=== PATIENT | male | born 1950 | race African-American/Black ===

== ENCOUNTER 2016-05-09 17:28 | Emergency (ER) | payer MEDICARE, OTHER ==
[~2016-05-09] VITALS: Ht 177.8 cm; Wt 72.6 kg
[~2016-05-09 17:28] MED LIST: ASPIR 8181 MG ORAL; ATORVASTATIN CA40 MG ORAL; BACTRIM-DS1 EA ORAL; CARAFATE1 G1 ORAL; CARVEDILOL3.125 MG ORAL; ENTRESTO 24 MG1 EACH PO; FUROSEMIDE40 MG ORAL; PANTOPRAZOLE SO40 MG ORAL; PROSCAR5 MG ORAL; SPIRONOLACTONE1 EACH ORAL; TAMSULOSIN HCL0.4 MG ORAL; TRAMADOL HCL50 MG ORAL; TYLENOL EXTRA500 MG ORAL
[2016-05-09 17:38] VITALS: BP 140/67
[2016-05-09 18:21] LABS: APPEARANCE,URINE TURBID; KETONES,URINE NEGATIVE (NEGATIVE); LEUKOCYTE ESTERASE ,URINE 1+ (NEGATIVE); NITRITE,URINE NEGATIVE (NEGATIVE); PH,URINE 7 (4.5-8.0); PROTEIN,URINE 4+ (NEGATIVE); UROBILINOGEN,URINE NORMAL MG/DL (0.0-1.0)
[2016-05-09 18:24] LABS: RBC,URINE TNTC /HPF (0 - 0)
[2016-05-09 18:53] LABS: BASOPHILS % (AUTO) 1.5 % (0.0-2.0); EOSINOPHILS % (AUTO) 4.3 % (0.0-3.0); LYMPHOCYTES % (AUTO) 26.1 % (20.0-45.0); MEAN CORPUSCULAR HEMOGLOBIN 27.9 PG (27.0-31.0); MEAN CORPUSCULAR HGB CONC 30.8 G/DL (32.0-36.0); MEAN CORPUSCULAR VOLUME 91 FL (80-99); MEAN PLATELET VOLUME 9.1 FL (6.5-10.1); MONOCYTES % (AUTO) 12.2 % (1.0-10.0); NEUTROPHILS % (AUTO) 55.9 % (45.0-75.0); PLATELET COUNT 157 K/UL (150-450); RED CELL DISTRIBUTION WIDTH 14.6 % (11.6-14.8); WHITE BLOOD COUNT 5.6 K/UL (4.8-10.8)
[2016-05-09 18:58] LABS: PROTHROMBIN TIME 10.5 SEC (9.30-11.50)
[2016-05-09 19:05] LABS: ALANINE AMINOTRANSFERASE 11 U/L (3-41); ALBUMIN/GLOBULIN RATIO 0.9 (1.0-2.7); ANION GAP 14 (5-15); ASPARTATE AMINO TRANSFERASE 16 U/L (5-40); CALCIUM 8.8 mg/dL (8.6-10.2); CARBON DIOXIDE 27 mEQ/L (20-30); CHLORIDE 100 mEQ/L (98-107); CREATININE 1.3 mg/dL (0.7-1.2); GLOMERULAR FILTRATION RATE > 60 mL/min (>60); HEMOLYSIS 6; POTASSIUM 4.1 mEQ/L (3.4-4.9); SODIUM 141 mEQ/L (135-145); TOTAL PROTEIN 7.3 g/dL (6.6-8.7)
--- NOTE | 2016-05-09 19:39 | Emergency Room Report ---
History of Present Illness General Chief Complaint: Male Urogenital Problems Source: Patient (Rodrigo Ramirez) Present Illness HPI Patient is a 65-year-old male who presented after having increased hematuria. Patient had the recent prostate surgery at [facility] done by Dr. Sousa. Patient was noted to have a prior hematuria which resolved after a partial TURP and cystoscopy. The patient indwelling Jordan catheter which had subsequently been removed. The patient was noted to have increased hematuria. Patient had received transfusion prior to this episode. The patient had been able to void on his own. (Rodrigo Ramirez) Allergies: Coded Allergies: No Known Allergies (Unverified , 04/03/16) Patient History Past Medical History: see triage record Reviewed Nursing Documentation: PMH: Agreed, PSxH: Agreed (Rodrigo Ramirez) Nursing Documentation-PMH Hx Cardiac Problems: Yes - HF, pacemaker, anemia Hx Hypertension: Yes - hypercholesterolemia Hx Cancer: No Hx Neurological Problems: No (Rodrigo Ramirez) Review of Systems All Other Systems: negative except mentioned in HPI (Rodrigo Ramirez) Physical Exam Vital Signs Date Time Temp Pulse Resp B/P Pulse Ox O2 Delivery O2 Flow Rate FiO2 05/09/16 17:29 98.1 67 14 165/72 100 Room Air Sp02 EP Interpretation: reviewed, normal General Appearance: normal inspection, well appearing, no apparent distress, alert, GCS 15 Head: atraumatic ENT: normal ENT inspection, hearing grossly normal, normal voice Neck: normal inspection, full range of motion, supple, no bony tend Respiratory: normal inspection, lungs clear, normal breath sounds, no respiratory distress, no retraction, no wheezing Cardiovascular #1: regular rate, rhythm, no edema Gastrointestinal: normal inspection, normal bowel sounds, non tender, soft, no guarding, no hernia Genitourinary: no CVA tenderness Musculoskeletal: normal inspection, back normal, normal range of motion Neurologic: normal inspection, alert, oriented x3, responsive, 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 Differential diagnosis included was not limited to bladder tumor, cystitis, postsurgical hemorrhage, among others.Because of complexity of patient's case laboratory testing and imaging studies were ordered. I laboratory study showed evidence of anemia the patient normal coagulation studies. Urinalysis showed evidence of gross hematuria without infection. The patient was discussed with Dr. Knox from urology who recommended patient followup with Dr. Sousa on Wednesday. Labs Test 05/09/16 17:45 05/09/16 18:38 Urine Color Red Urine Appearance Turbid Urine pH 7 (4.5-8.0) Urine Specific [place] 1.010 (1.005-1.035) Urine Protein 4+ (NEGATIVE) Urine Glucose (UA) Negative (NEGATIVE) Urine Ketones Negative (NEGATIVE) Urine Occult Blood 5+ (NEGATIVE) Urine Nitrite Negative (NEGATIVE) Urine Bilirubin Negative (NEGATIVE) Urine Urobilinogen Normal MG/DL (0.0-1.0) Urine Leukocyte Esterase 1+ (NEGATIVE) Urine RBC Tntc /HPF (0 - 0) Urine WBC 5-10 /HPF (0 - 0) Urine Squamous Epithelial Cells None /LPF (NONE/OCC) Urine Bacteria None /HPF (NONE) White Blood Count 5.6 K/UL (4.8-10.8) Red Blood Count 3.90 M/UL (4.70-6.10) Hemoglobin 10.9 G/DL (14.2-18.0) Hematocrit 35.4 % (42.0-52.0) Mean Corpuscular Volume 91 FL (80-99) Mean Corpuscular Hemoglobin 27.9 PG (27.0-31.0) Mean Corpuscular Hemoglobin Concent 30.8 G/DL (32.0-36.0) Red Cell Distribution Width 14.6 % (11.6-14.8) Platelet Count 157 K/UL (150-450) Mean Platelet Volume 9.1 FL (6.5-10.1) Neutrophils (%) (Auto) 55.9 % (45.0-75.0) Lymphocytes (%) (Auto) 26.1 % (20.0-45.0) Monocytes (%) (Auto) 12.2 % (1.0-10.0) Eosinophils (%) (Auto) 4.3 % (0.0-3.0) Basophils (%) (Auto) 1.5 % (0.0-2.0) Prothrombin Time 10.5 SEC (9.30-11.50) Prothromb Time International Ratio 1.0 (0.9-1.1) Activated Partial Thromboplast Time 33 SEC (23-33) Sodium Level 141 mEQ/L (135-145) Potassium Level 4.1 mEQ/L (3.4-4.9) Chloride Level 100 mEQ/L (98-107) Carbon Dioxide Level 27 mEQ/L (20-30) Anion Gap 14 (5-15) Blood Urea Nitrogen 16 mg/dL (7-23) Creatinine 1.3 mg/dL (0.7-1.2) Estimat Glomerular Filtration Rate > 60 mL/min (>60) Glucose Level 87 mg/dL (74-106) Calcium Level 8.8 mg/dL (8.6-10.2) Total Bilirubin 0.3 mg/dL (0.0-1.2) Aspartate Amino Transf (AST/SGOT) 16 U/L (5-40) Alanine Aminotransferase (ALT/SGPT) 11 U/L (3-41) Alkaline Phosphatase 84 U/L (40-129) Total Protein 7.3 g/dL (6.6-8.7) Albumin 3.5 g/dL (3.5-5.2) Globulin 3.8 g/dL Albumin/Globulin Ratio 0.9 (1.0-2.7) (Rodrigo Ramirez) ER Course Hospital Course 65-year-old male presents to ED with hematuria. Status post TURP Clinical course Patient initially seen and evaluated by Dr. Ramirez; please see his note for full history and physical Labs - no leukocytosis, blood/hematocrit stable, electrolytes okay, UA grossly positive US shows hemorrhage/clot in the bladder. Because of the hematuria. Patient drinking fluids and given IV fluids with hematuria improving. Patient shows no signs of obstruction. Repeat hemoglobin/hematocrit stable I discussed case with urology. They agreed that patient can be safely discharged to home at this time and that the hematuria is normal given the findings. No reason for admission. Patient agrees to plan. I feel this is a highly complex case requiring extensive working including EKG/ Rhythm strip, Xray/CT/US, Blood/urine lab work, repeat exams while in ED, and administration of strong opiates/narcotics for pain control, admission to hospital or close patient follow up. Diagnosis - gross hematuria, BPH, s/p TURP Stable and discharged to SNF. Followup with urology. Return to ED if symptoms recur or worsen Labs Test 05/09/16 17:45 05/09/16 18:38 05/09/16 21:24 Urine Color Red Urine Appearance Turbid Urine pH 7 (4.5-8.0) Urine Specific [place] 1.010 (1.005-1.035) Urine Protein 4+ (NEGATIVE) Urine Glucose (UA) Negative (NEGATIVE) Urine Ketones Negative (NEGATIVE) Urine Occult Blood 5+ (NEGATIVE) Urine Nitrite Negative (NEGATIVE) Urine Bilirubin Negative (NEGATIVE) Urine Urobilinogen Normal MG/DL (0.0-1.0) Urine Leukocyte Esterase 1+ (NEGATIVE) Urine RBC Tntc /HPF (0 - 0) Urine WBC 5-10 /HPF (0 - 0) Urine Squamous Epithelial Cells None /LPF (NONE/OCC) Urine Bacteria None /HPF (NONE) White Blood Count 5.6 K/UL (4.8-10.8) 5.4 K/UL (4.8-10.8) Red Blood Count 3.90 M/UL (4.70-6.10) 3.76 M/UL (4.70-6.10) Hemoglobin 10.9 G/DL (14.2-18.0) 10.4 G/DL (14.2-18.0) Hematocrit 35.4 % (42.0-52.0) 34.1 % (42.0-52.0) Mean Corpuscular Volume 91 FL (80-99) 91 FL (80-99) Mean Corpuscular Hemoglobin 27.9 PG (27.0-31.0) 27.5 PG (27.0-31.0) Mean Corpuscular Hemoglobin Concent 30.8 G/DL (32.0-36.0) 30.3 G/DL (32.0-36.0) Red Cell Distribution Width 14.6 % (11.6-14.8) 15.2 % (11.6-14.8) Platelet Count 157 K/UL (150-450) 150 K/UL (150-450) Mean Platelet Volume 9.1 FL (6.5-10.1) 8.3 FL (6.5-10.1) Neutrophils (%) (Auto) 55.9 % (45.0-75.0) 51.7 % (45.0-75.0) Lymphocytes (%) (Auto) 26.1 % (20.0-45.0) 32.6 % (20.0-45.0) Monocytes (%) (Auto) 12.2 % (1.0-10.0) 10.7 % (1.0-10.0) Eosinophils (%) (Auto) 4.3 % (0.0-3.0) 4.3 % (0.0-3.0) Basophils (%) (Auto) 1.5 % (0.0-2.0) 0.7 % (0.0-2.0) Prothrombin Time 10.5 SEC (9.30-11.50) Prothromb Time International Ratio 1.0 (0.9-1.1) Activated Partial Thromboplast Time 33 SEC (23-33) Sodium Level 141 mEQ/L (135-145) Potassium Level 4.1 mEQ/L (3.4-4.9) Chloride Level 100 mEQ/L (98-107) Carbon Dioxide Level 27 mEQ/L (20-30) Anion Gap 14 (5-15) Blood Urea Nitrogen 16 mg/dL (7-23) Creatinine 1.3 mg/dL (0.7-1.2) Estimat Glomerular Filtration Rate > 60 mL/min (>60) Glucose Level 87 mg/dL (74-106) Calcium Level 8.8 mg/dL (8.6-10.2) Total Bilirubin 0.3 mg/dL (0.0-1.2) Aspartate Amino Transf (AST/SGOT) 16 U/L (5-40) Alanine Aminotransferase (ALT/SGPT) 11 U/L (3-41) Alkaline Phosphatase 84 U/L (40-129) Total Protein 7.3 g/dL (6.6-8.7) Albumin 3.5 g/dL (3.5-5.2) Globulin 3.8 g/dL Albumin/Globulin Ratio 0.9 (1.0-2.7) (PATRICIA SEGURA M.D.) EKG Diagnostic Results Rate: other - paced rhythm, 67 Rhythm: other ST Segments: no acute changes ASA given to the pt in ED: No (Rodrigo Ramirez) Rhythm Strip Diag. Results Rhythm: no PVC's, no ectopy (Rodrigo Raimrez) CT/MRI/US Diagnostic Results CT/MRI/US Diagnostic Results : Imaging Test Ordered: renal US Impression Enlarged heterogeneous prostate reported recent TURP. Complex probable hemorrhagic/clot in the bladder (PATRICIA SEGURA M.D.) Last Vital Signs Date Time Temp Pulse Resp B/P Pulse Ox O2 Delivery O2 Flow Rate FiO2 05/09/16 17:38 98.1 69 14 140/67 100 Room Air Status: unchanged (Rodrigo Ramirez) Status: improved (PATRICIA SEGURA M.D.) Disposition: ER SNF Condition: Stable Rodrigo Ramirez May 09, 2016 19:39 PATRICIA SEGURA M.D. May 10, 2016 00:58
[2016-05-09 20:20] VITALS: BP 162/68
[2016-05-09 21:53] LABS: BASOPHILS % (AUTO) 0.7 % (0.0-2.0); EOSINOPHILS % (AUTO) 4.3 % (0.0-3.0); LYMPHOCYTES % (AUTO) 32.6 % (20.0-45.0); MEAN CORPUSCULAR HEMOGLOBIN 27.5 PG (27.0-31.0); MEAN CORPUSCULAR HGB CONC 30.3 G/DL (32.0-36.0); MEAN CORPUSCULAR VOLUME 91 FL (80-99); MEAN PLATELET VOLUME 8.3 FL (6.5-10.1); MONOCYTES % (AUTO) 10.7 % (1.0-10.0); NEUTROPHILS % (AUTO) 51.7 % (45.0-75.0); PLATELET COUNT 150 K/UL (150-450); RED BLOOD COUNT 3.76 M/UL (4.70-6.10); RED CELL DISTRIBUTION WIDTH 15.2 % (11.6-14.8); WHITE BLOOD COUNT 5.4 K/UL (4.8-10.8)
[2016-05-09] MEDS ORDERED: Morphine Sulfate 4mg/ml Inj IVP ONE (22:30)
[2016-05-09 23:10] VITALS: BP 166/62
[2016-05-10 00:33] VITALS: BP 140/60
[2016-05-10 00:35] VITALS: BP 140/60
--- NOTE | 2016-05-10 11:00 | Diagnostic Imaging Report ---
Indication:Hematuria Technique: Grayscale and duplex Doppler imaging of the kidneys performed. Comparison: None Findings: Large echogenic focus noted at the base of the bladder probably hematoma. Patient is had a recent transurethral resection of the prostate gland. It is difficult to distinguish between residual prostate gland and postsurgical edema/hematoma. The bladder is somewhat distended. Some echogenic debris noted within the bladder lumen consistent with blood. Multiple bilateral renal cysts are present of varying size measuring up to about 5-6 CM. No hydronephrosis definitely appreciated. The kidneys measure about 11 cm bilaterally Impression: Evidence of a large hematoma at the base of the urinary bladder in the setting of previous TURP. No hydronephrosis Multiple bilateral renal cysts
[2016-05-11] MEDS ORDERED: COREG3.125 MG ORAL (08:14)
[2016-05-11] MEDS ORDERED: OMEPRAZOLE40 M1 ORAL (08:14)
[2016-05-11] MEDS ORDERED: CEPACOL SORE T1 EAC5 MM (08:14)
[2016-05-11] MEDS ORDERED: ALDACTONE25 MG ORAL (08:14)
[2016-05-11] MEDS ORDERED: FERROUS SULFAT325 M2 ORAL (08:14)
--- NOTE | 2016-05-12 18:01 | Cardiology Report ---
APPROVED REPORT EKG Measurement Heart [id number] SD [id number] [id number] av sequential pacing
== END 2016-05-10 00:35 ==
LOC: EDBD 17:28 → EMR 19:42
DX: N40.0 Benign prostatic hyperplasia without lower urinary tract symptoms (principal); R31.9 Hematuria, unspecified; I10 Essential (primary) hypertension; E78.00 Pure hypercholesterolemia, unspecified; Z95.0 Presence of cardiac pacemaker; I50.9 Heart failure, unspecified
CPT/HCPCS: 36415; 76775; 80053; 81003; 85025; 85610; 85730; 93005; 96361; 96374; 99284; J2270; J7040

== ENCOUNTER 2016-05-10 17:17 | Inpatient (IN) | payer MEDICARE, OTHER ==
[~2016-05-10] VITALS: Ht 172.7 cm; Wt 72.6 kg
[2016-05-10 19:03] LABS: BASOPHILS % (AUTO) 0.5 % (0.0-2.0); EOSINOPHILS % (AUTO) 0.4 % (0.0-3.0); LYMPHOCYTES % (AUTO) 19.6 % (20.0-45.0); MEAN CORPUSCULAR HEMOGLOBIN 29.1 PG (27.0-31.0); MEAN CORPUSCULAR HGB CONC 32.4 G/DL (32.0-36.0); MEAN CORPUSCULAR VOLUME 90 FL (80-99); MEAN PLATELET VOLUME 10.2 FL (6.5-10.1); MONOCYTES % (AUTO) 7.2 % (1.0-10.0); NEUTROPHILS % (AUTO) 72.3 % (45.0-75.0); PLATELET COUNT 160 K/UL (150-450); RED CELL DISTRIBUTION WIDTH 14.7 % (11.6-14.8)
[2016-05-10 19:08] VITALS: BP 124/47
[2016-05-10 19:30] LABS: ALBUMIN/GLOBULIN RATIO 0.9 (1.0-2.7); CALCIUM 8.8 mg/dL (8.6-10.2); CREATININE 1.9 mg/dL (0.7-1.2); POTASSIUM 4.3 mEQ/L (3.4-4.9); TOTAL PROTEIN 7.5 g/dL (6.6-8.7)
[2016-05-10 20:13] LABS: INR 1.1 (0.9-1.1); PROTHROMBIN TIME 10.9 SEC (9.30-11.50)
[2016-05-10] MEDS ORDERED: Morphine Sulfate 4mg/ml Inj IVP ONE (21:00)
--- NOTE | 2016-05-10 21:27 | Emergency Room Report ---
History of Present Illness General Chief Complaint: Male Urogenital Problems Source: Patient Present Illness HPI Patient is a 65-year-old male who presented after increased abdominal pain hematuria. Patient recently been seen by me and was noted to have increased difficulty with urination. Patient was noted to have large amounts of bloody urine. This had increased since the visit yesterday the patient was having increased difficulty with voiding. He had a recent surgery with partial prostatectomy performed Dr. Sousa. The patient was noted to have a hemoglobin of approximately 10 yesterday. He denied fever or vomiting. He had been staying in a nursing facility. Allergies: Coded Allergies: No Known Allergies (Unverified , 04/03/16) Patient History Reviewed Nursing Documentation: PMH: Agreed, PSxH: Agreed Nursing Documentation-PMH Past Medical History: No History, Except For Hx Cardiac Problems: Yes - HF, pacemaker, anemia Hx Hypertension: Yes - hypercholesterolemia Hx Cancer: No Hx Neurological Problems: No Review of Systems All Other Systems: negative except mentioned in HPI Physical Exam Vital Signs Date Time Temp Pulse Resp B/P Pulse Ox O2 Delivery O2 Flow Rate FiO2 05/10/16 17:44 98.4 79 15 101/64 98 Room Air Sp02 EP Interpretation: reviewed, normal General Appearance: normal inspection, well appearing, no apparent distress, alert, GCS 15 Head: atraumatic ENT: normal ENT inspection, hearing grossly normal, normal voice Neck: normal inspection, full range of motion, supple, no bony tend Respiratory: normal inspection, lungs clear, normal breath sounds, no respiratory distress, no retraction, no wheezing Cardiovascular #1: regular rate, rhythm, no edema Gastrointestinal: normal inspection, normal bowel sounds, non tender, soft, no guarding, no hernia Genitourinary: no CVA tenderness Musculoskeletal: normal inspection, back normal, normal range of motion Neurologic: normal inspection, alert, responsive, speech normal Psychiatric: normal inspection, judgement/insight normal, mood/affect normal Skin: normal inspection, normal color, no rash Medical Decision Making Diagnostic Impression: Primary Impression: Anemia, blood loss Additional Impressions: BPH (benign prostatic hyperplasia) Gross hematuria ER Course Patient is a 65-year-old male patient was noted to gross hematuria. Differential diagnosis include was noted to aortic aneurysm, prostate bleeding, coagulopathy, anemia among others. Because of complexity of patient's case laboratory testing and imaging studies were ordered. The laboratory testing was notable for anemia which was worsened from previous visit yesterday Dr. Knox was was contacted for urology consult. Dr. Francois was contacted for inpatient management. Labs Test 05/10/16 17:47 05/10/16 18:30 05/10/16 19:00 05/10/16 20:48 Sodium Level 136 mEQ/L (135-145) Potassium Level 4.3 mEQ/L (3.4-4.9) Chloride Level 96 mEQ/L (98-107) Carbon Dioxide Level 23 mEQ/L (20-30) Anion Gap 17 (5-15) Blood Urea Nitrogen 24 mg/dL (7-23) Creatinine 1.9 mg/dL (0.7-1.2) Estimat Glomerular Filtration Rate 43.0 mL/min (>60) Glucose Level 130 mg/dL (74-106) Calcium Level 8.8 mg/dL (8.6-10.2) Total Bilirubin 0.4 mg/dL (0.0-1.2) Aspartate Amino Transf (AST/SGOT) 19 U/L (5-40) Alanine Aminotransferase (ALT/SGPT) 12 U/L (3-41) Alkaline Phosphatase 80 U/L (40-129) Total Protein 7.5 g/dL (6.6-8.7) Albumin 3.7 g/dL (3.5-5.2) Globulin 3.8 g/dL Albumin/Globulin Ratio 0.9 (1.0-2.7) Lipase 25 U/L (< 60) White Blood Count 6.0 K/UL (4.8-10.8) Red Blood Count 3.20 M/UL (4.70-6.10) Hemoglobin 9.3 G/DL (14.2-18.0) Hematocrit 28.7 % (42.0-52.0) Mean Corpuscular Volume 90 FL (80-99) Mean Corpuscular Hemoglobin 29.1 PG (27.0-31.0) Mean Corpuscular Hemoglobin Concent 32.4 G/DL (32.0-36.0) Red Cell Distribution Width 14.7 % (11.6-14.8) Platelet Count 160 K/UL (150-450) Mean Platelet Volume 10.2 FL (6.5-10.1) Neutrophils (%) (Auto) 72.3 % (45.0-75.0) Lymphocytes (%) (Auto) 19.6 % (20.0-45.0) Monocytes (%) (Auto) 7.2 % (1.0-10.0) Eosinophils (%) (Auto) 0.4 % (0.0-3.0) Basophils (%) (Auto) 0.5 % (0.0-2.0) Prothrombin Time 10.9 SEC (9.30-11.50) Prothromb Time International Ratio 1.1 (0.9-1.1) Activated Partial Thromboplast Time 33 SEC (23-33) Chest X-Ray Diagnostic Results EP Interpretation: Yes Findings: no consolidation, no effusion, no pneumothorax, no acute cardiopulmonary disease Number of Views: 1 Last Vital Signs Date Time Temp Pulse Resp B/P Pulse Ox O2 Delivery O2 Flow Rate FiO2 05/10/16 19:08 98.6 64 19 124/47 97 Room Air Status: unchanged Disposition: ADMITTED INPATIENT Condition: Serious Referrals: LAYLA JAIME MD (PCP) Rodrigo Ramirez May 10, 2016 21:27
[2016-05-10 21:34] LABS: APPEARANCE,URINE TURBID; KETONES,URINE NEGATIVE (NEGATIVE); LEUKOCYTE ESTERASE ,URINE NEGATIVE (NEGATIVE); NITRITE,URINE NEGATIVE (NEGATIVE); PH,URINE 7 (4.5-8.0); PROTEIN,URINE 4+ (NEGATIVE); UROBILINOGEN,URINE NORMAL MG/DL (0.0-1.0)
[2016-05-10 21:35] LABS: BACTERIA,URINE FEW /HPF; RBC,URINE TNTC /HPF (0 - 0); SQUAMOUS EPITHELIAL CELL,UR OCCASIONAL /LPF (NONE/OCC)
[2016-05-10 22:42] VITALS: BP 123/48
[2016-05-11] VITALS (8 sets, daily range): BP systolic 123–147; BP diastolic 52–98
[2016-05-11] MEDS ORDERED: Morphine Sulfate 4mg/ml Inj IVP ONE (01:15)
--- NOTE | 2016-05-11 08:09 | Consultation ---
History of Present Illness General Date patient seen: May 11, 2016 Time patient seen: 08:05 Chief Complaint: Male Urogenital Problems Present Illness HPI Patient known to me, hx of intractable hematuria likely due to BPH and being on Plavix at the time. In hospital post AICD/Pacemaker placement. Underwent cysto , PARTIAL prostate resection, and clot evacuation. Followed up in office last week, failed voiding trial. Plan to repeat this week, but re-admitted for hematuria again. Irrigating catheter placed. Patient comfortable but H/H slightly lower than last ER admission. Allergies: Coded Allergies: No Known Allergies (Unverified , 04/03/16) Medication History Scheduled Aspirin* (Aspir 81*), 81 MG ORAL DAILY, (Reported) Atorvastatin Calcium* (Atorvastatin Calcium*), 80 MG ORAL DAILY, (Reported) Carvedilol* (Carvedilol*), 3.125 MG ORAL EVERY 12 HOURS, (Reported) Finasteride* (Proscar*), 5 MG ORAL DAILY, (Reported) Pantoprazole* (Pantoprazole*), 40 MG ORAL DAILY, (Reported) Sacubitril/Valsartan (Entresto 24 mg-26 mg Tablet), 1 EACH PO TWICE A DAY, ( Reported) Sucralfate* (Carafate*), 1 GM ORAL FOUR TIMES A DAY, (Reported) Tamsulosin Hcl (Tamsulosin Hcl*), 0.4 MG ORAL TWICE A DAY, (Reported) Trimethoprim/Sulfamethoxazole (Bactrim Ds Tablet), 1 TAB ORAL TWICE A DAY Scheduled PRN Acetaminophen* (Tylenol Extra Strength*), 500 MG ORAL Q4HR PRN for Mild Pain/ Temp > 100.5, (Reported) Miscellaneous Medications Tramadol Hcl* (Ultram*), 50 MG ORAL, (Reported) Patient History History Provided By: Patient Healthcare decision maker Tito Valdez(Uncle) Resuscitation status Full Code Advanced Directive on File Past Medical/Surgical History Past Medical/Surgical History: (1) Renal failure (2) Hypercholesteremia (3) HTN (hypertension) (4) Pacemaker (5) BPH (benign prostatic hyperplasia) Review of Systems Constitutional: Denies: chills, fever, malaise, no symptoms, other, see HPI, sweats, weakness Eye: Denies: acuity changes, blurred vision, discharge, double vision, eye pain , no symptoms, nose congestion, nose pain, other, see HPI, tearing ENT: Denies: ear discharge, ear pain, hearing loss, mouth pain, nasal discharge , no symptoms, nose congestion, nose pain, other, see HPI, throat pain, throat swelling Respiratory: Denies: ROQUE, cough, no symptoms, orthopnea, other, see HPI, shortness of breath, sputum, stridor, wheezing Cardiovascular: Denies: PND, chest pain, edema, no symptoms, other, palpitations, see HPI, syncope Gastrointestinal: Denies: abdominal pain, constipation, diarrhea, hematemesis, melena, nausea, no symptoms, other, see HPI, vomiting Genitourinary: Reports: hematuria Musculoskeletal: Denies: back pain, gout, joint pain, joint swelling, muscle pain, muscle stiffness, no symptoms, other, see HPI Skin: Denies: change in color, change in hair/nails, dryness, lesions, no symptoms, other, rash, see HPI Psychiatric: Denies: HI, SI, anxiety, depressed feelings, emotional problems, hallucinations, no symptoms, other, prior hx, see HPI Neurological: Denies: dizziness, focal weakness, headache, no symptoms, numbness, other, paresthesia, see HPI, seizure, syncope, tingling, tremors Endocrine: Denies: excessive sweating, flushing, increased thirst, increased urine, intolerance to temperature, no symptoms, other, see HPI, unexplained weight loss Hematologic/Lymphatic: Denies: anemia, blood clots, diathesis, easy bleeding, easy bruising, no symptoms, other, see HPI, swollen glands Physical Exam General Appearance: WD/WN Cardiovascular/Chest: normal peripheral pulses, normal rate Abdomen: soft Genitourinary/Rectal: marcelino - light pink urine, other Last 24 Hour Vital Signs Date Time Temp Pulse Resp B/P Pulse Ox O2 Delivery O2 Flow Rate FiO2 05/11/16 04:07 97.5 77 17 124/63 95 Room Air 05/11/16 04:00 97.5 61 20 126/52 97 Room Air 05/11/16 01:49 98.5 84 16 142/98 100 Room Air 05/11/16 01:40 98.5 84 16 142/98 100 Room Air 05/11/16 00:48 98.5 81 17 147/53 97 Room Air 05/10/16 22:42 98.5 77 14 123/48 96 Room Air 05/10/16 21:31 98.5 05/10/16 19:08 98.6 64 19 124/47 97 Room Air 05/10/16 17:44 98.4 79 15 101/64 98 Room Air Intake and Output 05/10/16 05/11/16 19:00 07:00 Intake Total 120 ml Output Total 600 ml Balance -480 ml Intake Oral 120 ml Output Urine Total 600 ml # Voids 1 Laboratory Tests Test 05/10/16 17:47 05/10/16 18:30 05/10/16 19:00 05/10/16 20:48 Sodium Level 136 mEQ/L (135-145) Potassium Level 4.3 mEQ/L (3.4-4.9) Chloride Level 96 mEQ/L (98-107) L Carbon Dioxide Level 23 mEQ/L (20-30) Anion Gap 17 (5-15) H Blood Urea Nitrogen 24 mg/dL (7-23) H Creatinine 1.9 mg/dL (0.7-1.2) H Estimat Glomerular Filtration Rate 43.0 mL/min (>60) Glucose Level 130 mg/dL (74-106) H Calcium Level 8.8 mg/dL (8.6-10.2) Total Bilirubin 0.4 mg/dL (0.0-1.2) Aspartate Amino Transf (AST/SGOT) 19 U/L (5-40) Alanine Aminotransferase (ALT/SGPT) 12 U/L (3-41) Alkaline Phosphatase 80 U/L (40-129) Total Protein 7.5 g/dL (6.6-8.7) Albumin 3.7 g/dL (3.5-5.2) Globulin 3.8 g/dL Albumin/Globulin Ratio 0.9 (1.0-2.7) L Lipase 25 U/L (< 60) White Blood Count 6.0 K/UL (4.8-10.8) Red Blood Count 3.20 M/UL (4.70-6.10) L Hemoglobin 9.3 G/DL (14.2-18.0) L Hematocrit 28.7 % (42.0-52.0) L Mean Corpuscular Volume 90 FL (80-99) Mean Corpuscular Hemoglobin 29.1 PG (27.0-31.0) Mean Corpuscular Hemoglobin Concent 32.4 G/DL (32.0-36.0) Red Cell Distribution Width 14.7 % (11.6-14.8) Platelet Count 160 K/UL (150-450) Mean Platelet Volume 10.2 FL (6.5-10.1) H Neutrophils (%) (Auto) 72.3 % (45.0-75.0) Lymphocytes (%) (Auto) 19.6 % (20.0-45.0) L Monocytes (%) (Auto) 7.2 % (1.0-10.0) Eosinophils (%) (Auto) 0.4 % (0.0-3.0) Basophils (%) (Auto) 0.5 % (0.0-2.0) Prothrombin Time 10.9 SEC (9.30-11.50) Prothromb Time International Ratio 1.1 (0.9-1.1) Activated Partial Thromboplast Time 33 SEC (23-33) Urine Color Red Urine Appearance Turbid Urine pH 7 (4.5-8.0) Urine Specific [place] 1.010 (1.005-1.035) Urine Protein 4+ (NEGATIVE) H Urine Glucose (UA) Negative (NEGATIVE) Urine Ketones Negative (NEGATIVE) Urine Occult Blood 5+ (NEGATIVE) H Urine Nitrite Negative (NEGATIVE) Urine Bilirubin Negative (NEGATIVE) Urine Urobilinogen Normal MG/DL (0.0-1.0) Urine Leukocyte Esterase Negative (NEGATIVE) Urine RBC Tntc /HPF (0 - 0) H Urine WBC 2-4 /HPF (0 - 0) Urine Squamous Epithelial Cells Occasional /LPF Urine Bacteria Few /HPF (NONE) Height (Feet): 5 Height (Inches): 10.00 Weight (Pounds): 160 Medications Current Medications Medications (Trade) Dose Ordered Sig/Gurpreet Route PRN Reason Start Time Stop Time Status Last Admin Dose Admin Morphine Sulfate (Morphine Sulfate) 4 mg Q4H PRN IVP Severe Pain (Pain Scale 7-10) 05/11/16 06:30 05/18/16 06:29 Ondansetron HCl (Zofran) 4 mg Q4H PRN IVP Nausea & Vomiting 05/11/16 06:30 06/10/16 06:29 Objective Narrative Renal u/s: large prostate, clot in bladder, bilateral renal cysts Assessment/Plan Status: stable Assessment/Plan Given recurrent nature of hematuria and hx of only partial prostate resection, persistent retention, at this time recommend formal Greenlight laser TURP for hemostasis and to improve chances of voiding without catheter. Patient agrees. Will need cardiology clearance. 1. cardiology clearance 2. plan for greenlight TURP sometime this week 3. continue CBI at low rate Kwame Sousa M.D. May 11, 2016 08:09
[2016-05-11] MEDS ORDERED: OMEPRAZOLE40 M1 ORAL (08:14)
[2016-05-11] MEDS ORDERED: CEPACOL SORE T1 EAC5 MM (08:14)
[2016-05-11] MEDS ORDERED: COREG3.125 MG ORAL (08:14)
[2016-05-11] MEDS ORDERED: ALDACTONE25 MG ORAL (08:14)
[2016-05-11] MEDS ORDERED: FERROUS SULFAT325 M2 ORAL (08:14)
[2016-05-11] MEDS ORDERED: traMADol 50mg tab ORAL PRN (08:15)
[2016-05-11] MEDS ORDERED: Acetaminophen 500mg (ES) tab ORAL PRN (08:15)
[2016-05-11] MEDS: Morphine Sulfate 4mg/ml Inj IVP PRN (08:38)
[2016-05-11] MEDS ORDERED: Atorvastatin 80mg tab ORAL SCH (09:00)
[2016-05-11] MEDS: Spironolactone 25mg tab ORAL SCH ×2 (10:21→21:01)
[2016-05-11 11:27] LABS: BASOPHILS % (AUTO) 0.5 % (0.0-2.0); EOSINOPHILS % (AUTO) 0.8 % (0.0-3.0); LYMPHOCYTES % (AUTO) 19.8 % (20.0-45.0); MEAN CORPUSCULAR HEMOGLOBIN 27.7 PG (27.0-31.0); MEAN CORPUSCULAR HGB CONC 31.4 G/DL (32.0-36.0); MEAN CORPUSCULAR VOLUME 88 FL (80-99); MEAN PLATELET VOLUME 8.6 FL (6.5-10.1); MONOCYTES % (AUTO) 8.5 % (1.0-10.0); NEUTROPHILS % (AUTO) 70.5 % (45.0-75.0); PLATELET COUNT 133 K/UL (150-450); RED BLOOD COUNT 2.89 M/UL (4.70-6.10); WHITE BLOOD COUNT 7.9 K/UL (4.8-10.8)
[2016-05-11 11:44] LABS: ALBUMIN/GLOBULIN RATIO 0.9 (1.0-2.7); CALCIUM 8.5 mg/dL (8.6-10.2); CREATININE 1.6 mg/dL (0.7-1.2); GLOMERULAR FILTRATION RATE 52.5 mL/min (>60); MAGNESIUM 1.7 mg/dL (1.7-2.5); PHOSPHORUS 3.7 mg/dL (2.5-4.8); POTASSIUM 3.9 mEQ/L (3.4-4.9)
--- NOTE | 2016-05-11 12:32 | History & Physical ---
History and Physical History & Physicial Dictated for Int Med-Dr Francois no. [id number]. FRIDA CARRANZA May 11, 2016 12:32
[2016-05-11] MEDS ORDERED: NS Irrig 4000ml IRRIG ONE (15:20)
[2016-05-11] MEDS ORDERED: NS Irrig 1000ml ONE (15:20)
[2016-05-11 16:54] LABS: MEAN CORPUSCULAR HEMOGLOBIN 27.9 PG (27.0-31.0); MEAN CORPUSCULAR HGB CONC 31.2 G/DL (32.0-36.0); MEAN CORPUSCULAR VOLUME 89 FL (80-99); MEAN PLATELET VOLUME 10.4 FL (6.5-10.1); PLATELET COUNT 137 K/UL (150-450); RED BLOOD COUNT 2.83 M/UL (4.70-6.10); WHITE BLOOD COUNT 7.5 K/UL (4.8-10.8)
[2016-05-11 18:37] LABS: ANISOCYTOSIS 1+; BAND NEUTROPHILS % (MANUAL) 0 % (0-8); BASOPHILS % (MANUAL) 0 % (0-2); EOSINOPHILS % (MANUAL) 2 % (0-3); HYPOCHROMASIA 1+; LYMPHOCYTES % (MANUAL) 35 % (20-45); NEUTROPHILS % (MANUAL) 57 % (45-75); PLATELET ESTIMATE DECREASED; PLATELET MORPHOLOGY NORMAL; TOTAL CELLS COUNTED 100
[2016-05-11] MEDS: Atorvastatin 80mg tab ORAL SCH (21:01)
--- NOTE | 2016-05-11 22:37 | History and Physical Report ---
DATE OF ADMISSION: 05/10/2016 CHIEF COMPLAINT: The patient is a 65-year-old, male, presents with complaint of bloody urine. HISTORY OF PRESENT ILLNESS: [place] [facility] [place] The patient was followed by Urology, Dr. Villasenor. The patient underwent a cystoscopy during the 04/2016 admission. Please see history and physical. The patient had a partial TURP at that time. The patient is a resident of [facility]. The patient states he began to experience bloody urine three days prior to admission. The patient then became unable to void. The patient presented to [facility]. The patient was admitted for hematuria and urine outlet obstruction. PAST MEDICAL HISTORY: Significant for, 1. Congestive heart failure. 2. Dilated cardiomyopathy. 3. Hypertension. 4. Benign prostatic hypertrophy. PAST SURGICAL HISTORY: Significant for. 1. Pacemaker implantation in 03/2016. 2. Partial transurethral resection of the prostate as above. CURRENT MEDICATIONS: 1. Tylenol 500 mg one tablet p.o. q.4 hours p.r.n. 2. Aspirin 81 mg one tablet p.o. daily. 3. Atorvastatin 80 mg one tablet p.o. daily. 4. Carvedilol 3.125 mg one tablet p.o. twice daily. 5. Iron sulfate 325 mg one tablet p.o. twice daily. 6. Proscar 5 mg one tablet p.o. daily. 7. Omeprazole 40 mg one tablet p.o. daily. 8. Protonix 40 mg one tablet p.o. daily. 9. Entresto 24/26 mg one p.o. twice daily. 10. Spironolactone 25 mg one tablet p.o. twice daily. 11. Carafate 1 g p.o. 4 times daily. 12. Flomax 0.4 mg one tablet p.o. daily. 13. Tramadol 50 mg one tablet p.o. q.6 hours p.r.n. ALLERGIES: No known drug allergies. SOCIAL HISTORY: The patient is single and he is retired. The patient denies tobacco use having quit 25 years ago. The patient denies alcohol use. REVIEW OF SYSTEMS: Constitutional: The patient denies weight loss or weight gain. The patient denies fever or chills. HEENT: The patient denies ear or throat pain. Cardiovascular: The patient denies palpitations or chest pain. Chest: The patient denies wheeze or shortness of breath. Abdomen: The patient denies nausea, vomiting, diarrhea, or constipation. Genitourinary: The patient complains of hematuria as above. The patient complains of urine outlet obstruction as above. The patient denies dysuria. Neuromuscular: The patient denies seizures or generalized weakness. PHYSICAL EXAMINATION: VITAL SIGNS: Temperature 98.5 degrees, respirations 16, pulse 84, and blood pressure 142/98. GENERAL: The patient is well-developed, well-nourished, male, in no apparent distress. HEENT: Eyes, pupils are equal and responsive to light and accommodation. Extraocular movements are intact. NECK: Supple without lymphadenopathy. CHEST: Lungs are clear to auscultation bilaterally without wheezes or rales. CARDIOVASCULAR: Regular rhythm and rate. S1 and S2 normal without murmurs, rubs, or gallops. ABDOMEN: Soft, nontender, and nondistended. Positive bowel sounds. No evidence of hepatosplenomegaly. Currently, no rebound or guarding. EXTREMITIES: Negative for clubbing, cyanosis, or edema. RECTAL/GENITAL: Refused. NEUROLOGIC: Cranial nerves II through XII were grossly intact without focal deficits. Motor strength is 5/5 bilaterally. Deep tendon reflexes are 2+ plantar. LABORATORY STUDIES: WBC 6.2, hemoglobin 9.2, hematocrit 28.7, and platelets 160,000. Sodium 136, potassium 4.3, chloride 96, CO2 23, BUN 24, creatinine 1.9, and glucose 130. Urinalysis showed 4+ protein, 5+ occult blood with RBCs too numerous to count. ASSESSMENT: This is a 65-year-old male. 1. Hematuria. 2. Urine outlet obstruction. 3. Benign prostatic hypertrophy. 4. Congestive heart failure. 5. Cardiomyopathy. 6. Hypertension. TREATMENT: 1. Hematuria/benign prostatic hypertrophy/urine outlet obstruction. A Urology consultation was obatined with Dr. Villasenor. The patient may require prostatectomy at this time. We will follow recommendations of Urology. The patient will require Cardiology clearance for surgery. A Cardiology consultation is pending with Dr. Durga Dockery. 2. Congestive heart failure/cardiomyopathy. The patient is status post pacemaker implantation. A Cardiology consultation was obtained with Dr. Durga Toluie. Continue Coreg as above. 3. Hypertension, currently stable on Coreg. Romero Jones M.D. DR: PEE JOB#: [id number] CC:
[2016-05-12] VITALS (13 sets, daily range): BP systolic 119–180; BP diastolic 58–95
[2016-05-12] MEDS: Morphine Sulfate 4mg/ml Inj IVP PRN ×3 (00:06→19:28)
[2016-05-12] MEDS: Spironolactone 25mg tab ORAL SCH ×2 (09:00→21:00)
[2016-05-12 09:10] LABS: MEAN CORPUSCULAR HEMOGLOBIN 27.4 PG (27.0-31.0); MEAN CORPUSCULAR HGB CONC 30.9 G/DL (32.0-36.0); MEAN CORPUSCULAR VOLUME 89 FL (80-99); MEAN PLATELET VOLUME 7.6 FL (6.5-10.1); PLATELET COUNT 131 K/UL (150-450); RED BLOOD COUNT 2.73 M/UL (4.70-6.10); RED CELL DISTRIBUTION WIDTH 14.5 % (11.6-14.8); WHITE BLOOD COUNT 6.4 K/UL (4.8-10.8)
[2016-05-12 09:25] LABS: ANION GAP 13 (5-15); CALCIUM 8.4 mg/dL (8.6-10.2); CARBON DIOXIDE 24 mEQ/L (20-30); CHLORIDE 99 mEQ/L (98-107); CREATININE 1.2 mg/dL (0.7-1.2); GLOMERULAR FILTRATION RATE > 60 mL/min (>60); HEMOLYSIS 1; SODIUM 136 mEQ/L (135-145)
--- NOTE | 2016-05-12 09:55 | Pre-Procedure Note/Attestation ---
Pre-Procedure Note/Attestation Complete Prior to Procedure Planned Procedure: not applicable Procedure Narrative: cysto, clot evacuation, TURP Indications for Procedure Pre-Operative Diagnosis: hematuria, BPH, retention Attestation I attest that I discussed the nature of the procedure; its benefits; risks and complications; and alternatives (and the risks and benefits of such alternatives ), prior to the procedure, with the patient (or the patient's legal inside outside sales representative). I attest that, if there was a reasonable possibility of needing a blood transfusion, the patient (or the patient's legal inside outside sales representative) was given the [facility] standardized written summary, pursuant to the Cresencio Trainer Blood Safety Act ([place] Health and Safety Code # 1645, as amended). I attest that I re-evaluated the patient just prior to the surgery and that there has been no change in the patient's H&P, except as documented below: Kwame Sousa M.D. May 12, 2016 09:55
--- NOTE | 2016-05-12 09:57 | Anethesia Preoperative Eval ---
Anesthesia Pre-op PMH/ROS General Date of Evaluation: May 12, 2016 Time of Evaluation: 09:40 Anesthesiologist: Los ASA Score: ASA 3 Mallampati Score Class I : Soft palate, uvula, fauces, pillars visible Class II: Soft palate, uvula, fauces visible Class III: Soft palate, base of uvula visible Class IV: Only hard plate visible Mallampati Classification: Class II Surgeon: Merry Diagnosis: BPH, anemia Surgical Procedure: TURP Family History: no anesthesia problems Allergies: Coded Allergies: No Known Allergies (Unverified , 04/03/16) Medications: see eMAR Past Medical History Cardiovascular: Reports: CAD - s/p PTCA, HTN, arrhythmia - s/p PPM, other - Dilated cardiomyopathy, CHF Pulmonary: Denies: COPD, MARIUSZ, asthma, other Gastrointestinal/Genitourinary: Reports: CRI, Denies: ESRD, GERD, other Neurologic/Psychiatric: Denies: CVA, TIA, dementia, depression/anxiety, other Endocrine: Denies: DM, hypothyroidism, other, steroids Hematology/Immune: Reports: anemia, Denies: DVT, bleeding disorder, other Musculoskeletal/Integumentary: Denies: DDD, DJD, OA, RA, edema, other PMH Narrative: BPH, HTN, CAD (s/p PTCA), s/p PPM, CHF, Dilated cardiomyopathy PSxH Narrative: PPM, Cystoscopy Anesthesia Pre-op Phys. Exam Physician Exam Last Vital Signs Date Time Temp Pulse Resp B/P Pulse Ox O2 Delivery O2 Flow Rate FiO2 05/12/16 08:00 98.2 83 18 137/58 98 Room Air Constitutional: NAD Neurologic: CN 2-12 intact Cardiovascular: RRR, no M/R/G Respiratory: CTA Gastrointestinal: S/NT/ND Airway Exam Mallampati Score: Class II MO: full ROM: full Teeth: intact Anesthesia Pre-op A/P Labs Hematology Test 05/11/16 10:40 05/11/16 16:30 05/12/16 08:45 White Blood Count 7.9 K/UL (4.8-10.8) 7.5 K/UL (4.8-10.8) 6.4 K/UL (4.8-10.8) Red Blood Count 2.89 M/UL (4.70-6.10) L 2.83 M/UL (4.70-6.10) L 2.73 M/UL (4.70-6.10) L Hemoglobin 8.0 G/DL (14.2-18.0) L 7.9 G/DL (14.2-18.0) L 7.5 G/DL (14.2-18.0) L Hematocrit 25.5 % (42.0-52.0) L 25.3 % (42.0-52.0) L 24.2 % (42.0-52.0) L Mean Corpuscular Volume 88 FL (80-99) 89 FL (80-99) 89 FL (80-99) Mean Corpuscular Hemoglobin 27.7 PG (27.0-31.0) 27.9 PG (27.0-31.0) 27.4 PG (27.0-31.0) Mean Corpuscular Hemoglobin Concent 31.4 G/DL (32.0-36.0) L 31.2 G/DL (32.0-36.0) L 30.9 G/DL (32.0-36.0) L Red Cell Distribution Width 15.0 % (11.6-14.8) H 15.0 % (11.6-14.8) H 14.5 % (11.6-14.8) Platelet Count 133 K/UL (150-450) L 137 K/UL (150-450) L 131 K/UL (150-450) L Mean Platelet Volume 8.6 FL (6.5-10.1) 10.4 FL (6.5-10.1) H 7.6 FL (6.5-10.1) Neutrophils (%) (Auto) 70.5 % (45.0-75.0) % (45.0-75.0) % (45.0-75.0) Lymphocytes (%) (Auto) 19.8 % (20.0-45.0) L % (20.0-45.0) % (20.0-45.0) Monocytes (%) (Auto) 8.5 % (1.0-10.0) % (1.0-10.0) % (1.0-10.0) Eosinophils (%) (Auto) 0.8 % (0.0-3.0) % (0.0-3.0) % (0.0-3.0) Basophils (%) (Auto) 0.5 % (0.0-2.0) % (0.0-2.0) % (0.0-2.0) Differential Total Cells Counted 100 Neutrophils % (Manual) 57 % (45-75) Pending Lymphocytes % (Manual) 35 % (20-45) Pending Monocytes % (Manual) 6 % (1-10) Eosinophils % (Manual) 2 % (0-3) Basophils % (Manual) 0 % (0-2) Band Neutrophils 0 % (0-8) Platelet Estimate Decreased L Pending Platelet Morphology Normal Pending Hypochromasia 1+ Anisocytosis 1+ Chemistry Test 05/11/16 10:40 05/12/16 08:45 Sodium Level 135 mEQ/L (135-145) 136 mEQ/L (135-145) Potassium Level 3.9 mEQ/L (3.4-4.9) 4.0 mEQ/L (3.4-4.9) Chloride Level 96 mEQ/L (98-107) L 99 mEQ/L (98-107) Carbon Dioxide Level 23 mEQ/L (20-30) 24 mEQ/L (20-30) Anion Gap 16 (5-15) H 13 (5-15) Blood Urea Nitrogen 27 mg/dL (7-23) H 18 mg/dL (7-23) Creatinine 1.6 mg/dL (0.7-1.2) H 1.2 mg/dL (0.7-1.2) Estimat Glomerular Filtration Rate 52.5 mL/min (>60) > 60 mL/min (>60) Glucose Level 108 mg/dL (74-106) H 90 mg/dL (74-106) Calcium Level 8.5 mg/dL (8.6-10.2) L 8.4 mg/dL (8.6-10.2) L Phosphorus Level 3.7 mg/dL (2.5-4.8) Magnesium Level 1.7 mg/dL (1.7-2.5) Total Bilirubin 0.3 mg/dL (0.0-1.2) Aspartate Amino Transf (AST/SGOT) 21 U/L (5-40) Alanine Aminotransferase (ALT/SGPT) 12 U/L (3-41) Alkaline Phosphatase 75 U/L (40-129) Total Protein 7.0 g/dL (6.6-8.7) Albumin 3.4 g/dL (3.5-5.2) L Globulin 3.6 g/dL Albumin/Globulin Ratio 0.9 (1.0-2.7) L Risk Assessment & Plan Assessment: BPH, hematuria, anemia Plan: GA, LMA, PRBC transfusion in the OR. Status Change Before Surgery: No Pre-Antibiotics Drug: Ancef Given Within 1 Hr of Incision: Yes Time Given: 10:15 DIMITRY YUEN M.D. May 12, 2016 09:57
[2016-05-12] MEDS ORDERED: fentaNYL 100 mcg/2 mL IV ONE (10:00)
[2016-05-12] MEDS ORDERED: NS Irrig 4000ml IRRIG ONE ×2 (10:00)
[2016-05-12] MEDS ORDERED: Midazolam 2mg/2ml Inj ONE (10:00)
[2016-05-12] MEDS ORDERED: LR 1000ml ONE (10:00)
[2016-05-12] MEDS ORDERED: NS Irrig 2000ml IRRIG ONE ×2 (10:00)
[2016-05-12] MEDS ORDERED: Propofol 10mg/ml 20ml IV ONE (10:00)
--- NOTE | 2016-05-12 10:08 | Diagnostic Imaging Report ---
Indications: Cough Technique: Portable AP chest Findings: Comparison: None Cardiac silhouette enlarged. Pulmonary vasculature within normal limits. Lungs and pleura clear. Aortic arch calcified and mildly ectatic. Left chest wall pacemaker in place. IMPRESSION: No evidence of acute cardiopulmonary disease Cardiomegaly with pacemaker Aortosclerosis and probable chronic hypertensive change
--- NOTE | 2016-05-12 11:06 | Immediate Post-Op Evaluation ---
Immediate Post-Op Evalulation Immediate Post-Op Evalulation Procedure: TURP Date of Evaluation: May 12, 2016 Time of Evaluation: 13:00 IV Fluids: 850 Blood Products: PRBC 250cc Estimated Blood Loss: 200 Blood Pressure Systolic: 175 Blood Pressure Diastolic: 75 Pulse Rate: 76 Respiratory Rate: 20 O2 Sat by Pulse Oximetry: 100 Pain Score (1-10): 5 Nausea: No Vomiting: No Complications No complication Patient Status: awake, patent, none Hydration Status: adequate Drug: Ancef Given Within 1 Hr of Incision: Yes Time Given: 10:15 DIMITRY YUEN M.D. May 12, 2016 11:06
[2016-05-12] MEDS ORDERED: LORazepam Inj 2mg/ml 1ml IV PRN (11:15)
[2016-05-12] MEDS ORDERED: Hydromorphone 0.5mg/0.5ml inj IVP PRN (11:15)
[2016-05-12 11:27] LABS: BAND NEUTROPHILS % (MANUAL) 0 % (0-8); BASOPHILS % (MANUAL) 0 % (0-2); EOSINOPHILS % (MANUAL) 1 % (0-3); LYMPHOCYTES % (MANUAL) 31 % (20-45); NEUTROPHILS % (MANUAL) 59 % (45-75); PLATELET ESTIMATE ADEQUATE; TOTAL CELLS COUNTED 100
[2016-05-12 11:28] LABS: ANISOCYTOSIS 1+; HYPOCHROMASIA 1+; PLATELET MORPHOLOGY NORMAL
--- NOTE | 2016-05-12 12:48 | Brief Operative Note ---
Immediate Post Operative Note Operative Note Pre-op Diagnosis: hematuria, BPH, retention Procedure: cysto, TURP Post-op Diagnosis: same Post-op Diagnosis: same as pre-op Findings: consistent w/pre-op dx studies Surgeon: Merry Anesthesia: general Specimen: yes Complications: none Condition: stable Estimated Blood Loss: volume - 200 mL Drains: other - [address] marcelino cath Implant(s) used?: No Kwame Sousa M.D. May 12, 2016 12:48
--- NOTE | 2016-05-12 12:52 | Urology Progress Note ---
Assessment/Plan Status: stable Assessment/Plan Did well with TURP today. Recommend CBI overnight. Re-check H/H now and in AM. 1. CBI tonight, stop at 0700 in AM 2. Will re-evaluate tomorrow afternoon 3. if urine clear, h/h stable, should be ok for DC tomorrow afternoon. Subjective Date patient seen: May 12, 2016 Time patient seen: 12:49 ROS Limited/Unobtainable: Yes Constitutional: Denies: chills, diaphoresis, fever, malaise, no symptoms, other , weakness HEENT: Denies: blurred vision, double vision, ear discharge, ear pain, eye pain , mouth pain, mouth swelling, no symptoms, nose congestion, nose pain, other, tearing, throat pain, throat swelling Cardiovascular: Denies: chest pain, edema, irregular heart rate, lightheadedness, no symptoms, other, palpitations, syncope Respiratory: Denies: SOB at rest, SOB with excertion, cough, no symptoms, orthopnea, other, shortness of breath, sputum, stridor, wheezing Gastrointestinal/Abdominal: Denies: abdomen distended, abdominal pain, black stools, blood in stool, constipated, diarrhea, difficulty swallowing, nausea, no symptoms, other, poor appetite, poor fluid intake, rectal bleeding, tarry stools, vomiting Genitourinary: Denies: burning, discharge, flank pain, frequency, hematuria, incontinence, no symptoms, other, pain, urgency Neurologic/Psychiatric: Denies: anxiety, depressed, emotional problems, headache, no symptoms, numbness, other, paresthesia, pre-existing deficit, seizure, tingling, tremors, weakness Endocrine: Denies: excessive sweating, flushing, increased hunger, increased thirst, increased urine, intolerance to cold, intolerance to heat, no symptoms, other, unexplained weight gain, unexplained weight loss Hematologic/Lymphatic: Denies: anemia, easy bleeding, easy bruising, no symptoms, other Allergies: Coded Allergies: No Known Allergies (Unverified , 04/03/16) Subjective did well with TURP today. Objective Last 24 Hour Vital Signs Date Time Temp Pulse Resp B/P Pulse Ox O2 Delivery O2 Flow Rate FiO2 05/12/16 08:00 98.2 83 18 137/58 98 Room Air 05/12/16 04:00 97.9 66 18 155/72 98 Room Air 05/12/16 00:00 98.2 63 18 128/60 97 Room Air 05/11/16 21:01 60 141/68 05/11/16 20:00 98.2 60 18 147/65 97 Room Air 05/11/16 16:09 98.1 60 18 135/74 98 Room Air Intake and Output 05/11/16 05/12/16 19:00 07:00 Intake Total 13632 ml 7940 ml Output Total 39080 ml 41057 ml Balance -8330 ml -9860 ml Intake Oral 520 ml 240 ml Other 85849 ml 7700 ml Output Urine Total 17149 ml 65090 ml Laboratory Tests 05/11/16 16:30: White Blood Count 7.5, Red Blood Count 2.83L, Hemoglobin 7.9L, Hematocrit 25.3L , Mean Corpuscular Volume 89, Mean Corpuscular Hemoglobin 27.9, Mean Corpuscular Hemoglobin Concent 31.2L, Red Cell Distribution Width 15.0H, Platelet Count 137L, Mean Platelet Volume 10.4H, Neutrophils (%) (Auto) , Lymphocytes (%) (Auto) , Monocytes (%) (Auto) , Eosinophils (%) (Auto) , Basophils (%) (Auto) , Differential Total Cells Counted 100, Neutrophils % ( Manual) 57, Lymphocytes % (Manual) 35, Monocytes % (Manual) 6, Eosinophils % ( Manual) 2, Basophils % (Manual) 0, Band Neutrophils 0, Platelet Estimate DecreasedL, Platelet Morphology Normal, Hypochromasia 1+, Anisocytosis 1+ 05/12/16 08:45: White Blood Count 6.4, Red Blood Count 2.73L, Hemoglobin 7.5L, Hematocrit 24.2L , Mean Corpuscular Volume 89, Mean Corpuscular Hemoglobin 27.4, Mean Corpuscular Hemoglobin Concent 30.9L, Red Cell Distribution Width 14.5, Platelet Count 131L, Mean Platelet Volume 7.6, Neutrophils (%) (Auto) , Lymphocytes (%) (Auto) , Monocytes (%) (Auto) , Eosinophils (%) (Auto) , Basophils (%) (Auto) , Differential Total Cells Counted 100, Neutrophils % ( Manual) 59, Lymphocytes % (Manual) 31, Monocytes % (Manual) 9, Eosinophils % ( Manual) 1, Basophils % (Manual) 0, Band Neutrophils 0, Platelet Estimate Adequate, Platelet Morphology Normal, Hypochromasia 1+, Anisocytosis 1+, Sodium Level 136, Potassium Level 4.0, Chloride Level 99, Carbon Dioxide Level 24, Anion Gap 13, Blood Urea Nitrogen 18, Creatinine 1.2, Estimat Glomerular Filtration Rate > 60, Glucose Level 90, Calcium Level 8.4L Height (Feet): 5 Height (Inches): 8.00 Weight (Pounds): 160 General Appearance: no apparent distress Kwame Sousa M.D. May 12, 2016 12:51
[2016-05-12 14:09] LABS: BASOPHILS % (AUTO) 0.6 % (0.0-2.0); EOSINOPHILS % (AUTO) 2.9 % (0.0-3.0); LYMPHOCYTES % (AUTO) 33.2 % (20.0-45.0); MEAN CORPUSCULAR HEMOGLOBIN 27.9 PG (27.0-31.0); MEAN CORPUSCULAR HGB CONC 31.3 G/DL (32.0-36.0); MEAN CORPUSCULAR VOLUME 89 FL (80-99); MEAN PLATELET VOLUME 8.1 FL (6.5-10.1); MONOCYTES % (AUTO) 10.9 % (1.0-10.0); NEUTROPHILS % (AUTO) 52.4 % (45.0-75.0); PLATELET COUNT 117 K/UL (150-450); RED BLOOD COUNT 2.88 M/UL (4.70-6.10); RED CELL DISTRIBUTION WIDTH 14.4 % (11.6-14.8)
--- NOTE | 2016-05-12 18:55 | Cardiac Electrophysiology PN ---
Subjective Subjective [id number] Objective Last 24 Hour Vital Signs Date Time Temp Pulse Resp B/P Pulse Ox O2 Delivery O2 Flow Rate FiO2 05/12/16 16:00 97.3 80 20 142/95 98 Nasal Cannula 2.0 05/12/16 14:00 98.2 70 20 180/80 100 Nasal Cannula 3.0 05/12/16 13:55 98.0 05/12/16 13:45 69 20 180/74 100 Nasal Cannula 3.0 05/12/16 13:30 67 20 166/64 100 Nasal Cannula 3.0 05/12/16 13:15 67 20 167/63 100 Simple Mask 8.0 05/12/16 13:00 69 20 161/62 100 Simple Mask 8.0 05/12/16 12:56 76 20 100 05/12/16 12:55 67 20 142/76 100 Simple Mask 8.0 05/12/16 12:50 98.0 67 20 142/76 100 Simple Mask 8.0 05/12/16 08:00 98.2 83 18 137/58 98 Room Air 05/12/16 04:00 97.9 66 18 155/72 98 Room Air 05/12/16 00:00 98.2 63 18 128/60 97 Room Air 05/11/16 21:01 60 141/68 05/11/16 20:00 98.2 60 18 147/65 97 Room Air Intake and Output 05/11/16 05/12/16 19:00 07:00 Intake Total 77114 ml 7940 ml Output Total 30553 ml 87480 ml Balance -8330 ml -9860 ml Intake Oral 520 ml 240 ml Other 19613 ml 7700 ml Output Urine Total 31432 ml 40054 ml Laboratory Tests Test 05/12/16 08:45 05/12/16 13:45 White Blood Count 6.4 K/UL (4.8-10.8) 6.0 K/UL (4.8-10.8) Red Blood Count 2.73 M/UL (4.70-6.10) L 2.88 M/UL (4.70-6.10) L Hemoglobin 7.5 G/DL (14.2-18.0) L 8.0 G/DL (14.2-18.0) L Hematocrit 24.2 % (42.0-52.0) L 25.6 % (42.0-52.0) L Mean Corpuscular Volume 89 FL (80-99) 89 FL (80-99) Mean Corpuscular Hemoglobin 27.4 PG (27.0-31.0) 27.9 PG (27.0-31.0) Mean Corpuscular Hemoglobin Concent 30.9 G/DL (32.0-36.0) L 31.3 G/DL (32.0-36.0) L Red Cell Distribution Width 14.5 % (11.6-14.8) 14.4 % (11.6-14.8) Platelet Count 131 K/UL (150-450) L 117 K/UL (150-450) L Mean Platelet Volume 7.6 FL (6.5-10.1) 8.1 FL (6.5-10.1) Neutrophils (%) (Auto) % (45.0-75.0) 52.4 % (45.0-75.0) Lymphocytes (%) (Auto) % (20.0-45.0) 33.2 % (20.0-45.0) Monocytes (%) (Auto) % (1.0-10.0) 10.9 % (1.0-10.0) H Eosinophils (%) (Auto) % (0.0-3.0) 2.9 % (0.0-3.0) Basophils (%) (Auto) % (0.0-2.0) 0.6 % (0.0-2.0) Differential Total Cells Counted 100 Neutrophils % (Manual) 59 % (45-75) Lymphocytes % (Manual) 31 % (20-45) Monocytes % (Manual) 9 % (1-10) Eosinophils % (Manual) 1 % (0-3) Basophils % (Manual) 0 % (0-2) Band Neutrophils 0 % (0-8) Platelet Estimate Adequate Platelet Morphology Normal Hypochromasia 1+ Anisocytosis 1+ Sodium Level 136 mEQ/L (135-145) Potassium Level 4.0 mEQ/L (3.4-4.9) Chloride Level 99 mEQ/L (98-107) Carbon Dioxide Level 24 mEQ/L (20-30) Anion Gap 13 (5-15) Blood Urea Nitrogen 18 mg/dL (7-23) Creatinine 1.2 mg/dL (0.7-1.2) Estimat Glomerular Filtration Rate > 60 mL/min (>60) Glucose Level 90 mg/dL (74-106) Calcium Level 8.4 mg/dL (8.6-10.2) LANI POWELL May 12, 2016 18:55
[2016-05-12] MEDS: Lisinopril 10mg tab ORAL SCH (19:30)
--- NOTE | 2016-05-12 20:11 | Internal Med Progress Note ---
Subjective Date of Service: May 12, 2016 Physician Name Frida Jones Attending Physician Blair Francois MD Current Medications Medications (Trade) Dose Ordered Sig/Gurpreet Route PRN Reason Start Time Stop Time Status Last Admin Dose Admin Acetaminophen (Tylenol) 500 mg Q6H PRN ORAL Mild Pain/Temp > 100.5 05/11/16 08:15 06/10/16 08:14 Atorvastatin Calcium (Lipitor) 80 mg QHS ORAL 05/11/16 21:00 06/10/16 20:59 05/11/16 21:01 Carvedilol (Coreg) 3.125 mg EVERY 12 HOURS ORAL 05/11/16 21:00 06/10/16 20:59 05/11/16 21:01 Ferrous Sulfate (Feosol) 325 mg BID ORAL 05/11/16 10:00 06/10/16 09:59 05/11/16 17:49 Finasteride (Proscar) 5 mg DAILY ORAL 05/11/16 09:00 06/10/16 08:59 05/11/16 10:21 Lisinopril (Zestril) 10 mg DAILY ORAL 05/12/16 19:30 06/11/16 19:29 Morphine Sulfate (Morphine Sulfate) 4 mg Q4H PRN IVP Severe Pain (Pain Scale 7-10) 05/11/16 06:30 05/18/16 06:29 05/12/16 19:28 Ondansetron HCl (Zofran) 4 mg Q4H PRN IVP Nausea & Vomiting 05/11/16 06:30 06/10/16 06:29 Pantoprazole (Protonix) 40 mg ACBREAKFAST ORAL 05/12/16 06:30 06/11/16 06:29 05/12/16 06:51 Spironolactone (Aldactone) 25 mg EVERY 12 HOURS ORAL 05/11/16 10:00 06/10/16 09:59 05/11/16 21:01 Tramadol HCl (Ultram) 50 mg Q4H PRN ORAL PAIN SCALE 4-6 05/11/16 12:15 05/18/16 12:14 Allergies: Coded Allergies: No Known Allergies (Unverified , 04/03/16) ROS Limited/Unobtainable: No Constitutional: Reports: no symptoms HEENT: Reports: no symptoms Cardiovascular: Reports: no symptoms Respiratory: Reports: no symptoms Gastrointestinal/Abdominal: Reports: no symptoms Genitourinary: Reports: hematuria Neurologic/Psychiatric: Reports: no symptoms Subjective 65 YO M admitted for hematuria. Cover For Manuel Cantu-Dr Francois. S/P TURJulio today 02/16. Objective Last Vital Signs Date Time Temp Pulse Resp B/P Pulse Ox O2 Delivery O2 Flow Rate FiO2 05/12/16 16:00 97.3 80 20 142/95 98 Nasal Cannula 2.0 General Appearance: WD/WN, no apparent distress, alert EENT: PERRL/EOMI, normal ENT inspection, TMs normal Neck: non-tender, normal alignment, supple Cardiovascular: normal peripheral pulses, normal rate, regular rhythm, no gallop/murmur, no JVD Respiratory/Chest: chest wall non-tender, lungs clear, normal breath sounds, no respiratory distress, no accessory muscle use Abdomen: normal bowel sounds, non tender, soft, no organomegaly, no mass Extremities: normal range of motion Neurologic: appraiser oil and water II-XII grossly normal, no motor/sensory deficits Skin: normal pigmentation, warm/dry Laboratory Tests Test 05/12/16 08:45 05/12/16 13:45 White Blood Count 6.4 K/UL (4.8-10.8) 6.0 K/UL (4.8-10.8) Red Blood Count 2.73 M/UL (4.70-6.10) L 2.88 M/UL (4.70-6.10) L Hemoglobin 7.5 G/DL (14.2-18.0) L 8.0 G/DL (14.2-18.0) L Hematocrit 24.2 % (42.0-52.0) L 25.6 % (42.0-52.0) L Mean Corpuscular Volume 89 FL (80-99) 89 FL (80-99) Mean Corpuscular Hemoglobin 27.4 PG (27.0-31.0) 27.9 PG (27.0-31.0) Mean Corpuscular Hemoglobin Concent 30.9 G/DL (32.0-36.0) L 31.3 G/DL (32.0-36.0) L Red Cell Distribution Width 14.5 % (11.6-14.8) 14.4 % (11.6-14.8) Platelet Count 131 K/UL (150-450) L 117 K/UL (150-450) L Mean Platelet Volume 7.6 FL (6.5-10.1) 8.1 FL (6.5-10.1) Neutrophils (%) (Auto) % (45.0-75.0) 52.4 % (45.0-75.0) Lymphocytes (%) (Auto) % (20.0-45.0) 33.2 % (20.0-45.0) Monocytes (%) (Auto) % (1.0-10.0) 10.9 % (1.0-10.0) H Eosinophils (%) (Auto) % (0.0-3.0) 2.9 % (0.0-3.0) Basophils (%) (Auto) % (0.0-2.0) 0.6 % (0.0-2.0) Differential Total Cells Counted 100 Neutrophils % (Manual) 59 % (45-75) Lymphocytes % (Manual) 31 % (20-45) Monocytes % (Manual) 9 % (1-10) Eosinophils % (Manual) 1 % (0-3) Basophils % (Manual) 0 % (0-2) Band Neutrophils 0 % (0-8) Platelet Estimate Adequate Platelet Morphology Normal Hypochromasia 1+ Anisocytosis 1+ Sodium Level 136 mEQ/L (135-145) Potassium Level 4.0 mEQ/L (3.4-4.9) Chloride Level 99 mEQ/L (98-107) Carbon Dioxide Level 24 mEQ/L (20-30) Anion Gap 13 (5-15) Blood Urea Nitrogen 18 mg/dL (7-23) Creatinine 1.2 mg/dL (0.7-1.2) Estimat Glomerular Filtration Rate > 60 mL/min (>60) Glucose Level 90 mg/dL (74-106) Calcium Level 8.4 mg/dL (8.6-10.2) L Intake and Output 05/11/16 05/12/16 19:00 07:00 Intake Total 05685 ml 7940 ml Output Total 22187 ml 35059 ml Balance -8330 ml -9860 ml Intake Oral 520 ml 240 ml Other 39224 ml 7700 ml Output Urine Total 52712 ml 56133 ml Assessment/Plan Problem List: (1) CHF (congestive heart failure) Assessment & Plan: See Cardiology note. (2) Gross hematuria Assessment & Plan: S/P TURP below. Follow urology recs. (3) BPH (benign prostatic hyperplasia) Assessment & Plan: S/P TURP today 05/12/16. See urology note. (4) Anemia, blood loss Assessment & Plan: S/P transfusion 1 unit PRBC today. (5) Cardiomyopathy (6) HTN (hypertension) Assessment & Plan: Cont FRIDA Morgan May 12, 2016 20:11
[2016-05-12] MEDS: Atorvastatin 80mg tab ORAL SCH (21:00)
[2016-05-13] VITALS (8 sets, daily range): BP systolic 104–156; BP diastolic 49–89
[2016-05-13] MEDS: Morphine Sulfate 4mg/ml Inj IVP PRN ×3 (00:44→20:12)
[2016-05-13] MEDS: traMADol 50mg tab ORAL PRN ×2 (02:37→06:26)
--- NOTE | 2016-05-13 03:38 | Operative Note - Dictated ---
DATE OF OPERATION: 05/11/2016 PRIMARY SURGEON: Kwame Sousa M.D. PROCEDURE PERFORMED: Cystoscopy with clot evacuation and transurethral resection of prostate. ANESTHESIA: General. EBL: 200 mL. SPECIMENS: Prostate chips. DRAINS: A 22-Thai three-way Jordan catheter. COMPLICATIONS: None. PREOPERATIVE HISTORY: The patient is a very pleasant 65-year-old gentleman, who had hematuria approximately two to three weeks ago, underwent clot evacuation and partial transurethral resection of prostate with a large median lobe. He failed voiding trial as an outpatient and then returned to the hospital twice this past weekend for hematuria that was worsening. Given the fact that it is worsening and his hemoglobin and hematocrit was dropping, I counseled the patient that with persistent retention and persistent bleeding, he meets the criteria for a formal transurethral resection of prostate. Given that that is his second hospitalization, I recommended we move forward with this urgently. The patient agreed and he was made aware of the risks and benefits of the procedure, risks including, but not limited to bleeding, infection, bladder injury, ureteral injury, urethral injury, need for further surgery, recurrent retention, retrograde ejaculation, etc. The patient understood the risks, signed the consent, and he was taken to the operating room. OPERATIVE PROCEDURE: The patient was brought to the operating room and general anesthesia was achieved easily. He is placed in the dorsal lithotomy position and all pressure points padded. The perineum was prepped and draped in a sterile fashion. He received 1 g of IV Ancef as preop antibiotics. A 27-Thai continuous flow resectoscope sheath was placed. The anterior urethra was normal. The posterior urethra was entered showing minor lateral lobar hyperplasia with a significantly large median lobe with significant intravesical portion. Bladder itself had some blood clots and debris behind the median lobe, but is otherwise clear. Using the Olympus vaporizing button electrode, the left lateral lobe and median lobe were resected. The median lobe was dissected and resected appropriately in a vaporizing nucleated fashion allowing the median lobe to be detached and allowed to float into the bladder in two or three separate pieces. There was also some residual median lobe on the right side that was resected using the vaporizing button and ultimately the resecting loop. Some resection of the right lateral lobe was done as well, but as previously stated, there was no significant lateral lobar hyperplasia and mostly resolved median lobe. The floor of the prostate was smoothed out using the vaporizing button as well. Once adequate resection was done and adequate hemostasis was achieved, the large pieces were extracted using a grasper and sent for specimen. The bladder was intact and showed no signs of injury and at this point, the scope was removed and a 22-Thai three-way Jordan catheter in place. A 30 mL of water was filled in the balloon. Light irrigation was started and the urine was clear pink by the end of the case. The patient was awoken up and taken to the recovery room in stable fashion. He tolerated the procedure well. I was present for the entire case. All instrument counts were correct at the end of the case. PLAN: 1. The patient will be observed overnight with continuous bladder irrigation. 2. Hemoglobin and hematocrit are stable and urine quality is light pink. He should be able to be discharged tomorrow with Jordan catheter in. 3. Plan for voiding trial as an outpatient. Kwame Sousa DR: ALEXANDR JOB#: [id number] CC:
--- NOTE | 2016-05-13 04:58 | Consultation ---
DATE OF CONSULTATION: CARDIOLOGY CONSULTATION CONSULTING PHYSICIAN: Durga Dockery M.D. REFERRING PHYSICIAN: Blair Francois M.D. REASON FOR CONSULTATION: Evaluation of the patient's pacemaker and the patient with history of cardiomyopathy. HISTORY OF PRESENT ILLNESS: The patient is a very pleasant 65-year-old gentleman does have a history of hypertension and history of dilated cardiomyopathy, who underwent biventricular defibrillator implantation about two months ago. The patient states that he had cardiac catheterization at [facility] that showed no evidence of coronary artery disease. The patient was admitted to the hospital for his hematuria and underwent cystoscopy and TURP. At the time of my evaluation, the patient is postop doing irrigations through his Jordan. Denies any chest pain or shortness of breath. PAST MEDICAL HISTORY: 1. Hypertension. 2. History of prior congestive heart failure and nonischemic cardiomyopathy. 3. Status post biventricular defibrillator implantation. 4. hypertrophy. MEDICATIONS: 1. Coreg. 2. Aldactone. 3. Entresto. 4. Lipitor. 5. Aspirin. 6. Tylenol. 7. Omeprazole. SOCIAL HISTORY: Single and retired. No smoking or drinking. REVIEW OF SYSTEMS: Review of systems was performed and was negative other than what was mentioned in the history of present illness. PHYSICAL EXAMINATION: VITAL SIGNS: Blood pressure is 142/95 180/80, pulse 80, respirations 18, and he is afebrile. NECK: No JVD. LUNGS: Clear. CARDIOVASCULAR: Shows regular S1 and S2 with no gallop or murmur. His defibrillator is noted to be in subclavian. ABDOMEN: Soft. EXTREMITIES: No pitting edema. DIAGNOSTIC AND LABORATORY STUDIES: EKG, atrioventricular paced rhythm. Labs, white count of 6, hemoglobin 8, hematocrit of 25.6, and platelet count of 117,000. Sodium is 136, potassium is 4.0, BUN of 18, creatinine 1.2, and glucose of 90. INR is 1. ASSESSMENT AND PLAN: 1. History of severe nonischemic dilated cardiomyopathy, recent cardiac catheterization. The patient is currently euvolemic. Continue Coreg 3.125 mg b.i.d. and Aldactone 25 mg daily. I will start the patient also on his lisinopril especially the blood pressure is also elevated. The patient's creatinine is 1.2 today. We will hold off Lasix at this time. Echocardiogram will be ordered. 2. Status post biventricular St. Navid defibrillator implantation. We will interrogate the device for further evaluation. 3. Hematuria, status post transurethral resection of prostate by today. The patient tolerated the surgery well without any complications. Thank you very much, Dr. Francois, for allowing me to participate in the care of this patient. Please do not hesitate to contact me for any questions regarding my evaluation. Durga Dockery M.D. DR: Puma JOB#: [id number] CC:
[2016-05-13] MEDS ORDERED: LORazepam 0.5mg tab ORAL ONE (07:15)
--- NOTE | 2016-05-13 07:16 | 48 Hour Post Anesthesia Eval ---
Post Anesthesia Evaluation Procedure: TURP Date of Evaluation: May 13, 2016 Time of Evaluation: 07:02 Blood Pressure Systolic: 156 0: 89 Pulse Rate: 97 Respiratory Rate: 20 Temperature (Fahrenheit): 97.2 O2 Sat by Pulse Oximetry: 97 Airway: patent Nausea: No Vomiting: No Pain Intensity: 2 Hydration Status: adequate Cardiopulmonary Status: Stable Mental Status/LOC: patient returned to baseline Follow-up Care/Observations: 0 Post-Anesthesia Complications: 0 Follow-up care needed: N/A Martin Rodriguez MD May 13, 2016 07:16
[2016-05-13] MEDS: Diazepam 10mg/2ml Inj IV PRN ×2 (09:23→20:12)
[2016-05-13] MEDS: Spironolactone 25mg tab ORAL SCH ×2 (09:23→20:11)
[2016-05-13] MEDS: Lisinopril 10mg tab ORAL SCH (09:23)
[2016-05-13 10:08] LABS: MEAN CORPUSCULAR HEMOGLOBIN 27.9 PG (27.0-31.0); MEAN CORPUSCULAR HGB CONC 31.9 G/DL (32.0-36.0); MEAN CORPUSCULAR VOLUME 88 FL (80-99); MEAN PLATELET VOLUME 9.6 FL (6.5-10.1); PLATELET COUNT 155 K/UL (150-450); RED BLOOD COUNT 2.49 M/UL (4.70-6.10); RED CELL DISTRIBUTION WIDTH 14.1 % (11.6-14.8); WHITE BLOOD COUNT 9.6 K/UL (4.8-10.8)
--- NOTE | 2016-05-13 10:26 | Cardiac Electrophysiology PN ---
Assessment/Plan Assessment/Plan 1. History of severe nonischemic dilated cardiomyopathy based on recent cardiac catheterization. The patient is currently euvolemic. Continue Coreg 3.125 mg b.i.d. and Aldactone 25 mg daily and lisinopril We will hold off Lasix at this time.Echocardiogram pending. 2. Status post biventricular St. Navid defibrillator implantation. We will interrogate the device for further evaluation. 3. Hematuria, status post transurethral resection of prostate. The patient tolerated the surgery well without any complications. ALAN RN Subjective Subjective Feeling better. No chest pain or SOB. Off tele. Objective Last 24 Hour Vital Signs Date Time Temp Pulse Resp B/P Pulse Ox O2 Delivery O2 Flow Rate FiO2 05/13/16 09:23 156/89 05/13/16 09:23 97 156/89 05/13/16 08:00 97.9 78 21 135/72 98 Room Air 05/13/16 07:16 97 20 97 05/13/16 05:06 97.2 05/13/16 05:06 97.2 05/13/16 04:00 97.7 97 20 156/89 97 Nasal Cannula 2.0 05/12/16 23:56 97.2 81 20 119/64 96 Room Air 05/12/16 20:00 97.7 78 20 137/73 97 Room Air 05/12/16 16:00 97.3 80 20 142/95 98 Nasal Cannula 2.0 05/12/16 14:00 98.2 70 20 180/80 100 Nasal Cannula 3.0 05/12/16 13:55 98.0 05/12/16 13:45 69 20 180/74 100 Nasal Cannula 3.0 05/12/16 13:30 67 20 166/64 100 Nasal Cannula 3.0 05/12/16 13:15 67 20 167/63 100 Simple Mask 8.0 05/12/16 13:00 69 20 161/62 100 Simple Mask 8.0 05/12/16 12:56 76 20 100 05/12/16 12:55 67 20 142/76 100 Simple Mask 8.0 05/12/16 12:50 98.0 67 20 142/76 100 Simple Mask 8.0 Intake and Output 05/12/16 05/13/16 19:00 07:00 Intake Total 5350 ml 8240 ml Output Total 5900 ml 44494 ml Balance -550 ml -7260 ml Intake Oral 240 ml IV Total 1100 ml Blood Product 250 ml Other 4000 ml 8000 ml Output Urine Total 5700 ml 02005 ml Estimated Blood Loss 200 ml # Voids 50 Laboratory Tests Test 05/12/16 13:45 05/13/16 09:45 White Blood Count 6.0 K/UL (4.8-10.8) 9.6 K/UL (4.8-10.8) # Red Blood Count 2.88 M/UL (4.70-6.10) L 2.49 M/UL (4.70-6.10) L Hemoglobin 8.0 G/DL (14.2-18.0) L 7.0 G/DL (14.2-18.0) L Hematocrit 25.6 % (42.0-52.0) L 21.8 % (42.0-52.0) L Mean Corpuscular Volume 89 FL (80-99) 88 FL (80-99) Mean Corpuscular Hemoglobin 27.9 PG (27.0-31.0) 27.9 PG (27.0-31.0) Mean Corpuscular Hemoglobin Concent 31.3 G/DL (32.0-36.0) L 31.9 G/DL (32.0-36.0) L Red Cell Distribution Width 14.4 % (11.6-14.8) 14.1 % (11.6-14.8) Platelet Count 117 K/UL (150-450) L 155 K/UL (150-450) Mean Platelet Volume 8.1 FL (6.5-10.1) 9.6 FL (6.5-10.1) Neutrophils (%) (Auto) 52.4 % (45.0-75.0) % (45.0-75.0) Lymphocytes (%) (Auto) 33.2 % (20.0-45.0) % (20.0-45.0) Monocytes (%) (Auto) 10.9 % (1.0-10.0) H % (1.0-10.0) Eosinophils (%) (Auto) 2.9 % (0.0-3.0) % (0.0-3.0) Basophils (%) (Auto) 0.6 % (0.0-2.0) % (0.0-2.0) Neutrophils % (Manual) Pending Lymphocytes % (Manual) Pending Platelet Estimate Pending Platelet Morphology Pending Sodium Level Pending Potassium Level Pending Chloride Level Pending Carbon Dioxide Level Pending Blood Urea Nitrogen Pending Creatinine Pending Estimat Glomerular Filtration Rate Pending Glucose Level Pending Calcium Level Pending Pro-B-Type Natriuretic Peptide Pending Microbiology Date/Time Source Procedure Growth Status 05/10/16 20:48 Nasal Nares MRSA Culture - Final NO METHICILLIN RESISTANT STAPH AUREUS... Complete Objective NECK: No JVD. LUNGS: Clear. CARDIOVASCULAR: Shows regular S1 and S2 with no gallop or murmur.Defibrillator is in left subclavian. ABDOMEN: Soft. EXTREMITIES: No pitting edema. LANI OCONNELL May 13, 2016 10:26
[2016-05-13 10:43] LABS: CALCIUM 8.1 mg/dL (8.6-10.2); CREATININE 1.5 mg/dL (0.7-1.2); GLOMERULAR FILTRATION RATE 56.6 mL/min (>60); POTASSIUM 4.4 mEQ/L (3.4-4.9)
[2016-05-13 10:48] LABS: BAND NEUTROPHILS % (MANUAL) 1 % (0-8); BASOPHILS % (MANUAL) 0 % (0-2); EOSINOPHILS % (MANUAL) 1 % (0-3); HYPOCHROMASIA 1+; LYMPHOCYTES % (MANUAL) 19 % (20-45); NEUTROPHILS % (MANUAL) 71 % (45-75); PLATELET ESTIMATE ADEQUATE; PLATELET MORPHOLOGY NORMAL; TOTAL CELLS COUNTED 100
--- NOTE | 2016-05-13 12:59 | Urology Progress Note ---
Assessment/Plan Status: stable Assessment/Plan Continued problems with continuous bladder irrigation. DC'd catheter for now. Patient has voided about 250-300 bloody urine. Bladder scan shows 400 residual. Given lack of tolerating catheter well and difficulty with adequate irrigation, recommend leaving marcelino out. H/H down recommend transfusing another unit. At this time will monitor closely. 1. transfuse 1 unit PRBC now 2. monitor residual 3. valium prn spasms 4. re-assess in AM for repeat catheterization with irrigation, if H/H continues to drop may need to return to OR Subjective Date patient seen: May 13, 2016 Time patient seen: 12:56 ROS Limited/Unobtainable: No Constitutional: Denies: chills, diaphoresis, fever, malaise, no symptoms, other , weakness HEENT: Denies: blurred vision, double vision, ear discharge, ear pain, eye pain , mouth pain, mouth swelling, no symptoms, nose congestion, nose pain, other, tearing, throat pain, throat swelling Cardiovascular: Denies: chest pain, edema, irregular heart rate, lightheadedness, no symptoms, other, palpitations, syncope Respiratory: Denies: SOB at rest, SOB with excertion, cough, no symptoms, orthopnea, other, shortness of breath, sputum, stridor, wheezing Gastrointestinal/Abdominal: Denies: abdomen distended, abdominal pain, black stools, blood in stool, constipated, diarrhea, difficulty swallowing, nausea, no symptoms, other, poor appetite, poor fluid intake, rectal bleeding, tarry stools, vomiting Genitourinary: Reports: hematuria, pain Allergies: Coded Allergies: No Known Allergies (Unverified , 04/03/16) Subjective significant problems with marcelino catheter overnight again, unsure cause. possibly bladder spasm mediated. catheter now removed Objective Last 24 Hour Vital Signs Date Time Temp Pulse Resp B/P Pulse Ox O2 Delivery O2 Flow Rate FiO2 05/13/16 12:00 98.1 84 21 114/49 100 Nasal Cannula 2.0 05/13/16 09:23 156/89 05/13/16 09:23 97 156/89 05/13/16 08:00 97.9 78 21 135/72 98 Room Air 05/13/16 07:16 97 20 97 05/13/16 05:06 97.2 05/13/16 05:06 97.2 05/13/16 04:00 97.7 97 20 156/89 97 Nasal Cannula 2.0 05/12/16 23:56 97.2 81 20 119/64 96 Room Air 05/12/16 20:00 97.7 78 20 137/73 97 Room Air 05/12/16 16:00 97.3 80 20 142/95 98 Nasal Cannula 2.0 05/12/16 14:00 98.2 70 20 180/80 100 Nasal Cannula 3.0 05/12/16 13:55 98.0 05/12/16 13:45 69 20 180/74 100 Nasal Cannula 3.0 05/12/16 13:30 67 20 166/64 100 Nasal Cannula 3.0 05/12/16 13:15 67 20 167/63 100 Simple Mask 8.0 05/12/16 13:00 69 20 161/62 100 Simple Mask 8.0 Intake and Output 05/12/16 05/13/16 19:00 07:00 Intake Total 5350 ml 8240 ml Output Total 5900 ml 62093 ml Balance -550 ml -7260 ml Intake Oral 240 ml IV Total 1100 ml Blood Product 250 ml Other 4000 ml 8000 ml Output Urine Total 5700 ml 21184 ml Estimated Blood Loss 200 ml # Voids 50 Laboratory Tests 05/12/16 13:45: White Blood Count 6.0, Red Blood Count 2.88L, Hemoglobin 8.0L, Hematocrit 25.6L , Mean Corpuscular Volume 89, Mean Corpuscular Hemoglobin 27.9, Mean Corpuscular Hemoglobin Concent 31.3L, Red Cell Distribution Width 14.4, Platelet Count 117L, Mean Platelet Volume 8.1, Neutrophils (%) (Auto) 52.4, Lymphocytes (%) (Auto) 33.2, Monocytes (%) (Auto) 10.9H, Eosinophils (%) (Auto) 2.9, Basophils (%) (Auto) 0.6 05/13/16 09:45: White Blood Count 9.6#, Red Blood Count 2.49L, Hemoglobin 7.0L, Hematocrit 21.8L , Mean Corpuscular Volume 88, Mean Corpuscular Hemoglobin 27.9, Mean Corpuscular Hemoglobin Concent 31.9L, Red Cell Distribution Width 14.1, Platelet Count 155, Mean Platelet Volume 9.6, Neutrophils (%) (Auto) , Lymphocytes (%) (Auto) , Monocytes (%) (Auto) , Eosinophils (%) (Auto) , Basophils (%) (Auto) , Differential Total Cells Counted 100, Neutrophils % ( Manual) 71, Lymphocytes % (Manual) 19L, Monocytes % (Manual) 8, Eosinophils % ( Manual) 1, Basophils % (Manual) 0, Band Neutrophils 1, Platelet Estimate Adequate, Platelet Morphology Normal, Hypochromasia 1+, Sodium Level 136, Potassium Level 4.4, Chloride Level 102, Carbon Dioxide Level 23, Anion Gap 11, Blood Urea Nitrogen 19, Creatinine 1.5H, Estimat Glomerular Filtration Rate 56.6 , Glucose Level 141H, Calcium Level 8.1L, Pro-B-Type Natriuretic Peptide 3119H Height (Feet): 5 Height (Inches): 8.00 Weight (Pounds): 160 General Appearance: WD/WN Abdomen: soft Kwame Sousa M.D. May 13, 2016 12:59
--- NOTE | 2016-05-13 19:17 | Internal Med Progress Note ---
Subjective Date of Service: May 13, 2016 Physician Name Jones,Frida Attending Physician Blair Francois MD Current Medications Medications (Trade) Dose Ordered Sig/Gurpreet Route PRN Reason Start Time Stop Time Status Last Admin Dose Admin Acetaminophen (Tylenol) 500 mg Q6H PRN ORAL Mild Pain/Temp > 100.5 05/11/16 08:15 06/10/16 08:14 Atorvastatin Calcium (Lipitor) 80 mg QHS ORAL 05/11/16 21:00 06/10/16 20:59 05/11/16 21:01 Carvedilol (Coreg) 3.125 mg EVERY 12 HOURS ORAL 05/11/16 21:00 06/10/16 20:59 05/13/16 09:23 Diazepam (Valium) 2 mg Q2H PRN IV spasm 05/13/16 09:00 05/20/16 08:59 05/13/16 09:23 Ferrous Sulfate (Feosol) 325 mg BID ORAL 05/11/16 10:00 06/10/16 09:59 05/13/16 18:16 Finasteride (Proscar) 5 mg DAILY ORAL 05/11/16 09:00 06/10/16 08:59 05/13/16 09:23 Lisinopril (Zestril) 10 mg DAILY ORAL 05/12/16 19:30 06/11/16 19:29 05/13/16 09:23 Morphine Sulfate (Morphine Sulfate) 4 mg Q4H PRN IVP Severe Pain (Pain Scale 7-10) 05/11/16 06:30 05/18/16 06:29 05/13/16 04:36 Ondansetron HCl (Zofran) 4 mg Q4H PRN IVP Nausea & Vomiting 05/11/16 06:30 06/10/16 06:29 Pantoprazole (Protonix) 40 mg ACBREAKFAST ORAL 05/12/16 06:30 06/11/16 06:29 05/12/16 06:51 Spironolactone (Aldactone) 25 mg EVERY 12 HOURS ORAL 05/11/16 10:00 06/10/16 09:59 05/13/16 09:23 Tramadol HCl (Ultram) 50 mg Q4H PRN ORAL PAIN SCALE 4-6 05/11/16 12:15 05/18/16 12:14 05/13/16 06:26 Allergies: Coded Allergies: No Known Allergies (Unverified , 04/03/16) ROS Limited/Unobtainable: No Constitutional: Reports: no symptoms HEENT: Reports: no symptoms Cardiovascular: Reports: no symptoms Respiratory: Reports: no symptoms Gastrointestinal/Abdominal: Reports: no symptoms Genitourinary: Reports: hematuria Neurologic/Psychiatric: Reports: no symptoms Subjective 65 YO M admitted for hematuria. Cover For Int Med-Dr Francois. S/P TURP 05/12/16. Objective Last Vital Signs Date Time Temp Pulse Resp B/P Pulse Ox O2 Delivery O2 Flow Rate FiO2 05/13/16 16:00 98.7 69 20 104/77 98 Room Air 05/13/16 12:00 2.0 Laboratory Tests Test 05/13/16 09:45 White Blood Count 9.6 K/UL (4.8-10.8) # Red Blood Count 2.49 M/UL (4.70-6.10) L Hemoglobin 7.0 G/DL (14.2-18.0) L Hematocrit 21.8 % (42.0-52.0) L Mean Corpuscular Volume 88 FL (80-99) Mean Corpuscular Hemoglobin 27.9 PG (27.0-31.0) Mean Corpuscular Hemoglobin Concent 31.9 G/DL (32.0-36.0) L Red Cell Distribution Width 14.1 % (11.6-14.8) Platelet Count 155 K/UL (150-450) Mean Platelet Volume 9.6 FL (6.5-10.1) Neutrophils (%) (Auto) % (45.0-75.0) Lymphocytes (%) (Auto) % (20.0-45.0) Monocytes (%) (Auto) % (1.0-10.0) Eosinophils (%) (Auto) % (0.0-3.0) Basophils (%) (Auto) % (0.0-2.0) Differential Total Cells Counted 100 Neutrophils % (Manual) 71 % (45-75) Lymphocytes % (Manual) 19 % (20-45) L Monocytes % (Manual) 8 % (1-10) Eosinophils % (Manual) 1 % (0-3) Basophils % (Manual) 0 % (0-2) Band Neutrophils 1 % (0-8) Platelet Estimate Adequate Platelet Morphology Normal Hypochromasia 1+ Sodium Level 136 mEQ/L (135-145) Potassium Level 4.4 mEQ/L (3.4-4.9) Chloride Level 102 mEQ/L (98-107) Carbon Dioxide Level 23 mEQ/L (20-30) Anion Gap 11 (5-15) Blood Urea Nitrogen 19 mg/dL (7-23) Creatinine 1.5 mg/dL (0.7-1.2) H Estimat Glomerular Filtration Rate 56.6 mL/min (>60) Glucose Level 141 mg/dL (74-106) H Calcium Level 8.1 mg/dL (8.6-10.2) L Pro-B-Type Natriuretic Peptide 3119 pg/mL (0-125) H Microbiology Date/Time Source Procedure Growth Status 05/10/16 20:48 Nasal Nares MRSA Culture - Final NO METHICILLIN RESISTANT STAPH AUREUS... Complete 05/10/16 20:48 Rectum VRE Culture - Final NO VANCOMYCIN RESISTANT ENTEROCOCCUS ... Complete Intake and Output 05/12/16 05/13/16 18:59 06:59 Intake Total 5350 ml 8240 ml Output Total 3500 ml 57435 ml Balance 1850 ml -9660 ml Intake Oral 240 ml IV Total 1100 ml Blood Product 250 ml Other 4000 ml 8000 ml Output Urine Total 3300 ml 41157 ml Estimated Blood Loss 200 ml # Voids 50 Assessment/Plan Problem List: (1) CHF (congestive heart failure) Assessment & Plan: See Cardiology note. (2) Gross hematuria Assessment & Plan: S/P TURP below. Follow urology recs. (3) BPH (benign prostatic hyperplasia) Assessment & Plan: S/P TURP today 05/12/16. See urology note. (4) Anemia, blood loss Assessment & Plan: S/P transfusion 1 unit PRBC today. (5) Cardiomyopathy (6) HTN (hypertension) Assessment & Plan: FRIDA Brown May 13, 2016 19:17
--- NOTE | 2016-05-13 19:19 | Internal Med Progress Note ---
Subjective Date of Service: May 13, 2016 Physician Name Carranza,Frida Attending Physician Blair Francois MD Current Medications Medications (Trade) Dose Ordered Sig/Gurpreet Route PRN Reason Start Time Stop Time Status Last Admin Dose Admin Acetaminophen (Tylenol) 500 mg Q6H PRN ORAL Mild Pain/Temp > 100.5 05/11/16 08:15 06/10/16 08:14 Atorvastatin Calcium (Lipitor) 80 mg QHS ORAL 05/11/16 21:00 06/10/16 20:59 05/11/16 21:01 Carvedilol (Coreg) 3.125 mg EVERY 12 HOURS ORAL 05/11/16 21:00 06/10/16 20:59 05/13/16 09:23 Diazepam (Valium) 2 mg Q2H PRN IV spasm 05/13/16 09:00 05/20/16 08:59 05/13/16 09:23 Ferrous Sulfate (Feosol) 325 mg BID ORAL 05/11/16 10:00 06/10/16 09:59 05/13/16 18:16 Finasteride (Proscar) 5 mg DAILY ORAL 05/11/16 09:00 06/10/16 08:59 05/13/16 09:23 Lisinopril (Zestril) 10 mg DAILY ORAL 05/12/16 19:30 06/11/16 19:29 05/13/16 09:23 Morphine Sulfate (Morphine Sulfate) 4 mg Q4H PRN IVP Severe Pain (Pain Scale 7-10) 05/11/16 06:30 05/18/16 06:29 05/13/16 04:36 Ondansetron HCl (Zofran) 4 mg Q4H PRN IVP Nausea & Vomiting 05/11/16 06:30 06/10/16 06:29 Pantoprazole (Protonix) 40 mg ACBREAKFAST ORAL 05/12/16 06:30 06/11/16 06:29 05/12/16 06:51 Spironolactone (Aldactone) 25 mg EVERY 12 HOURS ORAL 05/11/16 10:00 06/10/16 09:59 05/13/16 09:23 Tramadol HCl (Ultram) 50 mg Q4H PRN ORAL PAIN SCALE 4-6 05/11/16 12:15 05/18/16 12:14 05/13/16 06:26 Allergies: Coded Allergies: No Known Allergies (Unverified , 04/03/16) ROS Limited/Unobtainable: No Constitutional: Reports: no symptoms HEENT: Reports: no symptoms Cardiovascular: Reports: no symptoms Respiratory: Reports: no symptoms Gastrointestinal/Abdominal: Reports: no symptoms Genitourinary: Reports: hematuria Neurologic/Psychiatric: Reports: no symptoms Subjective 65 YO M admitted for hematuria. Cover For Int Med-Dr Francois. S/P TURP . Continues to have gross hematuria. Hemoglobin decreased today. Objective Last Vital Signs Date Time Temp Pulse Resp B/P Pulse Ox O2 Delivery O2 Flow Rate FiO2 05/13/16 16:00 98.7 69 20 104/77 98 Room Air 05/13/16 12:00 2.0 Laboratory Tests Test 05/13/16 09:45 White Blood Count 9.6 K/UL (4.8-10.8) # Red Blood Count 2.49 M/UL (4.70-6.10) L Hemoglobin 7.0 G/DL (14.2-18.0) L Hematocrit 21.8 % (42.0-52.0) L Mean Corpuscular Volume 88 FL (80-99) Mean Corpuscular Hemoglobin 27.9 PG (27.0-31.0) Mean Corpuscular Hemoglobin Concent 31.9 G/DL (32.0-36.0) L Red Cell Distribution Width 14.1 % (11.6-14.8) Platelet Count 155 K/UL (150-450) Mean Platelet Volume 9.6 FL (6.5-10.1) Neutrophils (%) (Auto) % (45.0-75.0) Lymphocytes (%) (Auto) % (20.0-45.0) Monocytes (%) (Auto) % (1.0-10.0) Eosinophils (%) (Auto) % (0.0-3.0) Basophils (%) (Auto) % (0.0-2.0) Differential Total Cells Counted 100 Neutrophils % (Manual) 71 % (45-75) Lymphocytes % (Manual) 19 % (20-45) L Monocytes % (Manual) 8 % (1-10) Eosinophils % (Manual) 1 % (0-3) Basophils % (Manual) 0 % (0-2) Band Neutrophils 1 % (0-8) Platelet Estimate Adequate Platelet Morphology Normal Hypochromasia 1+ Sodium Level 136 mEQ/L (135-145) Potassium Level 4.4 mEQ/L (3.4-4.9) Chloride Level 102 mEQ/L (98-107) Carbon Dioxide Level 23 mEQ/L (20-30) Anion Gap 11 (5-15) Blood Urea Nitrogen 19 mg/dL (7-23) Creatinine 1.5 mg/dL (0.7-1.2) H Estimat Glomerular Filtration Rate 56.6 mL/min (>60) Glucose Level 141 mg/dL (74-106) H Calcium Level 8.1 mg/dL (8.6-10.2) L Pro-B-Type Natriuretic Peptide 3119 pg/mL (0-125) H Microbiology Date/Time Source Procedure Growth Status 05/10/16 20:48 Nasal Nares MRSA Culture - Final NO METHICILLIN RESISTANT STAPH AUREUS... Complete 05/10/16 20:48 Rectum VRE Culture - Final NO VANCOMYCIN RESISTANT ENTEROCOCCUS ... Complete Intake and Output 05/12/16 05/13/16 19:00 07:00 Intake Total 5350 ml 8240 ml Output Total 5900 ml 43139 ml Balance -550 ml -7260 ml Intake Oral 240 ml IV Total 1100 ml Blood Product 250 ml Other 4000 ml 8000 ml Output Urine Total 5700 ml 42132 ml Estimated Blood Loss 200 ml # Voids 50 Objective General Appearance: WD/WN, no apparent distress, alert EENT: PERRL/EOMI, normal ENT inspection, TMs normal Neck: non-tender, normal alignment, supple Cardiovascular: normal peripheral pulses, normal rate, regular rhythm, no gallop/murmur, no JVD Respiratory/Chest: chest wall non-tender, lungs clear, normal breath sounds, no respiratory distress, no accessory muscle use Abdomen: normal bowel sounds, non tender, soft, no organomegaly, no mass Extremities: normal range of motion 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 (2) Gross hematuria Assessment & Plan: S/P TURP below. Follow urology recs. (3) BPH (benign prostatic hyperplasia) Assessment & Plan: S/P TURP 05/12/16. See urology note. (4) Anemia, blood loss Assessment & Plan: Transfuse 1 unit PRBC today; 2 units total PRBC this admission (5) Cardiomyopathy (6) HTN (hypertension) Assessment & Plan: Cont coreg Status: not improved FRIDA CARRANZA May 13, 2016 19:19
[2016-05-13] MEDS: Atorvastatin 80mg tab ORAL SCH (20:11)
[2016-05-14] VITALS: BP 104/53
[2016-05-14] MEDS: Diazepam 10mg/2ml Inj IV PRN ×4 (00:55→21:42)
[2016-05-14] MEDS: Morphine Sulfate 4mg/ml Inj IVP PRN ×3 (00:57→11:30)
[2016-05-14 04:00] VITALS: BP 107/55
[2016-05-14 07:32] LABS: MEAN CORPUSCULAR HEMOGLOBIN 28.6 PG (27.0-31.0); MEAN CORPUSCULAR HGB CONC 32.6 G/DL (32.0-36.0); MEAN CORPUSCULAR VOLUME 88 FL (80-99); MEAN PLATELET VOLUME 9.3 FL (6.5-10.1); PLATELET COUNT 140 K/UL (150-450); RED BLOOD COUNT 2.37 M/UL (4.70-6.10); RED CELL DISTRIBUTION WIDTH 14.1 % (11.6-14.8); WHITE BLOOD COUNT 10.1 K/UL (4.8-10.8)
[2016-05-14 07:43] LABS: CALCIUM 8.1 mg/dL (8.6-10.2); CREATININE 1.7 mg/dL (0.7-1.2); POTASSIUM 4.6 mEQ/L (3.4-4.9)
[2016-05-14 07:50] LABS: OTHERS PATHOLOGIST COMMENT
[2016-05-14 08:00] VITALS: BP 115/56
[2016-05-14] MEDS: Lisinopril 10mg tab ORAL SCH (09:00)
[2016-05-14 09:03] LABS: EOSINOPHILS % (MANUAL) 4 % (0-3); LYMPHOCYTES % (MANUAL) 26 % (20-45); NEUTROPHILS % (MANUAL) 56 % (45-75); TOTAL CELLS COUNTED 100
[2016-05-14 09:04] LABS: BAND NEUTROPHILS % (MANUAL) 0 % (0-8); BASOPHILS % (MANUAL) 0 % (0-2); PLATELET ESTIMATE ADEQUATE; PLATELET MORPHOLOGY NORMAL
[2016-05-14] MEDS: Spironolactone 25mg tab ORAL SCH ×2 (09:34→20:39)
[2016-05-14 12:00] VITALS: BP 112/53
[2016-05-14 16:00] VITALS: BP 119/65
--- NOTE | 2016-05-14 18:24 | Cardiac Electrophysiology PN ---
Assessment/Plan Assessment/Plan 1. History of severe nonischemic dilated cardiomyopathy based on recent cardiac catheterization. Continue Coreg 3.125 mg b.i.d., lisinopril and Aldactone 25 mg daily . We will hold off Lasix at this time.Echocardiogram pending. 2. Status post biventricular St. Navid defibrillator implantation. We will interrogate the device for further evaluation. 3. Hematuria, status post transurethral resection of prostate. The patient tolerated the surgery well without any complications. 4. Profound anemia Hb 6.8 likely due to hematuria. Likely needs transfuison. ALAN RN Subjective Subjective No chest pain or SOB. Off tele. No events overnight. Objective Last 24 Hour Vital Signs Date Time Temp Pulse Resp B/P Pulse Ox O2 Delivery O2 Flow Rate FiO2 05/14/16 12:00 98.1 60 18 112/53 100 Nasal Cannula 2.0 05/14/16 09:00 115/56 05/14/16 09:00 62 115/56 05/14/16 08:00 97.0 62 18 115/56 96 Room Air 05/14/16 04:00 98.0 63 20 107/55 97 Room Air 05/14/16 00:00 98.4 63 20 104/53 97 Room Air 05/13/16 20:11 72 128/60 05/13/16 20:00 98.4 75 20 128/60 97 Nasal Cannula 2.0 05/13/16 19:56 98.4 72 19 128/60 98 Room Air Intake and Output 05/13/16 05/14/16 19:00 07:00 Intake Total 420 ml 950 ml Output Total 400 ml 500 ml Balance 20 ml 450 ml Intake Oral 420 ml 950 ml Output Urine Total 400 ml 500 ml # Voids 1 Laboratory Tests Test 05/14/16 06:40 White Blood Count 10.1 K/UL (4.8-10.8) Red Blood Count 2.37 M/UL (4.70-6.10) L Hemoglobin 6.8 G/DL (14.2-18.0) *L Hematocrit 20.8 % (42.0-52.0) L Mean Corpuscular Volume 88 FL (80-99) Mean Corpuscular Hemoglobin 28.6 PG (27.0-31.0) Mean Corpuscular Hemoglobin Concent 32.6 G/DL (32.0-36.0) Red Cell Distribution Width 14.1 % (11.6-14.8) Platelet Count 140 K/UL (150-450) L Mean Platelet Volume 9.3 FL (6.5-10.1) Neutrophils (%) (Auto) % (45.0-75.0) Lymphocytes (%) (Auto) % (20.0-45.0) Monocytes (%) (Auto) % (1.0-10.0) Eosinophils (%) (Auto) % (0.0-3.0) Basophils (%) (Auto) % (0.0-2.0) Differential Total Cells Counted 100 Neutrophils % (Manual) 56 % (45-75) Lymphocytes % (Manual) 26 % (20-45) Monocytes % (Manual) 14 % (1-10) H Eosinophils % (Manual) 4 % (0-3) H Basophils % (Manual) 0 % (0-2) Band Neutrophils 0 % (0-8) Platelet Estimate Adequate Platelet Morphology Normal Red Blood Cell Morphology Normal Sodium Level 137 mEQ/L (135-145) Potassium Level 4.6 mEQ/L (3.4-4.9) Chloride Level 101 mEQ/L (98-107) Carbon Dioxide Level 22 mEQ/L (20-30) Anion Gap 14 (5-15) Blood Urea Nitrogen 22 mg/dL (7-23) Creatinine 1.7 mg/dL (0.7-1.2) H Estimat Glomerular Filtration Rate 49.0 mL/min (>60) Glucose Level 104 mg/dL (74-106) Calcium Level 8.1 mg/dL (8.6-10.2) L Objective NECK: No JVD. LUNGS: Clear. CARDIOVASCULAR: Shows regular S1 and S2 with no gallop or murmur.Defibrillator is in left subclavian. ABDOMEN: Soft. EXTREMITIES: No pitting edema. LANI OCONNELL May 14, 2016 18:24
--- NOTE | 2016-05-14 18:39 | Urology Progress Note ---
Assessment/Plan Status: stable Assessment/Plan Patient required another transfusion today, H/H not stable. hemodynamically stable but given continued hematuria and dropping h/h discussed returning to OR tomorrow with patient. Unsure why catheter continuous irrigation is so problematic for patient but at this time need to re-intervene. Patient agrees. If continues to bleed after third attempt at TURP tomorrow, may need angio embolization. 1. npo after breakfast tomorrow 2. plan for OR tomorrow, cysto, clot evacuation, re-do TURP Subjective Date patient seen: May 14, 2016 Time patient seen: 18:36 ROS Limited/Unobtainable: No Constitutional: Denies: chills, diaphoresis, fever, malaise, no symptoms, other , weakness HEENT: Denies: blurred vision, double vision, ear discharge, ear pain, eye pain , mouth pain, mouth swelling, no symptoms, nose congestion, nose pain, other, tearing, throat pain, throat swelling Cardiovascular: Denies: chest pain, edema, irregular heart rate, lightheadedness, no symptoms, other, palpitations, syncope Respiratory: Denies: SOB at rest, SOB with excertion, cough, no symptoms, orthopnea, other, shortness of breath, sputum, stridor, wheezing Gastrointestinal/Abdominal: Reports: abdominal pain Genitourinary: Reports: hematuria, pain Neurologic/Psychiatric: Denies: anxiety, depressed, emotional problems, headache, no symptoms, numbness, other, paresthesia, pre-existing deficit, seizure, tingling, tremors, weakness Endocrine: Denies: excessive sweating, flushing, increased hunger, increased thirst, increased urine, intolerance to cold, intolerance to heat, no symptoms, other, unexplained weight gain, unexplained weight loss Hematologic/Lymphatic: Denies: anemia, easy bleeding, easy bruising, no symptoms, other Allergies: Coded Allergies: No Known Allergies (Unverified , 04/03/16) Subjective since catheter removal patient has been more comfortable but hematuria has not stopped. able to void, but feels obstruction when passing clots. Objective Last 24 Hour Vital Signs Date Time Temp Pulse Resp B/P Pulse Ox O2 Delivery O2 Flow Rate FiO2 05/14/16 16:00 98.2 57 18 119/65 97 Room Air 05/14/16 12:00 98.1 60 18 112/53 100 Nasal Cannula 2.0 05/14/16 09:00 115/56 05/14/16 09:00 62 115/56 05/14/16 08:00 97.0 62 18 115/56 96 Room Air 05/14/16 04:00 98.0 63 20 107/55 97 Room Air 05/14/16 00:00 98.4 63 20 104/53 97 Room Air 05/13/16 20:11 72 128/60 05/13/16 20:00 98.4 75 20 128/60 97 Nasal Cannula 2.0 05/13/16 19:56 98.4 72 19 128/60 98 Room Air Intake and Output 05/13/16 05/14/16 18:59 06:59 Intake Total 420 ml 950 ml Output Total 350 ml 550 ml Balance 70 ml 400 ml Intake Oral 420 ml 950 ml Output Urine Total 350 ml 550 ml # Voids 1 Laboratory Tests 05/14/16 06:40: White Blood Count 10.1, Red Blood Count 2.37L, Hemoglobin 6.8*L, Hematocrit 20.8L, Mean Corpuscular Volume 88, Mean Corpuscular Hemoglobin 28.6, Mean Corpuscular Hemoglobin Concent 32.6, Red Cell Distribution Width 14.1, Platelet Count 140L, Mean Platelet Volume 9.3, Neutrophils (%) (Auto) , Lymphocytes (%) ( Auto) , Monocytes (%) (Auto) , Eosinophils (%) (Auto) , Basophils (%) (Auto) , Differential Total Cells Counted 100, Neutrophils % (Manual) 56, Lymphocytes % ( Manual) 26, Monocytes % (Manual) 14H, Eosinophils % (Manual) 4H, Basophils % ( Manual) 0, Band Neutrophils 0, Platelet Estimate Adequate, Platelet Morphology Normal, Red Blood Cell Morphology Normal, Sodium Level 137, Potassium Level 4.6 , Chloride Level 101, Carbon Dioxide Level 22, Anion Gap 14, Blood Urea Nitrogen 22, Creatinine 1.7H, Estimat Glomerular Filtration Rate 49.0, Glucose Level 104, Calcium Level 8.1L Height (Feet): 5 Height (Inches): 8.00 Weight (Pounds): 160 General Appearance: WD/WN Abdomen: non tender, soft Kwame Sousa M.D. May 14, 2016 18:39
[2016-05-14 19:00] VITALS: BP 129/63
--- NOTE | 2016-05-14 20:05 | Internal Med Progress Note ---
Subjective Date of Service: May 14, 2016 Physician Name Carranza,Frida Attending Physician Blair Francois MD Current Medications Medications (Trade) Dose Ordered Sig/Gurpreet Route PRN Reason Start Time Stop Time Status Last Admin Dose Admin Acetaminophen (Tylenol) 500 mg Q6H PRN ORAL Mild Pain/Temp > 100.5 05/11/16 08:15 06/10/16 08:14 Atorvastatin Calcium (Lipitor) 80 mg QHS ORAL 05/11/16 21:00 06/10/16 20:59 05/13/16 20:11 Carvedilol (Coreg) 3.125 mg EVERY 12 HOURS ORAL 05/11/16 21:00 06/10/16 20:59 05/13/16 20:11 Diazepam (Valium) 2 mg Q2H PRN IV spasm 05/13/16 09:00 05/20/16 08:59 05/14/16 11:26 Ferrous Sulfate (Feosol) 325 mg BID ORAL 05/11/16 10:00 06/10/16 09:59 05/14/16 18:49 Finasteride (Proscar) 5 mg DAILY ORAL 05/11/16 09:00 06/10/16 08:59 05/13/16 09:23 Lisinopril (Zestril) 10 mg DAILY ORAL 05/12/16 19:30 06/11/16 19:29 05/13/16 09:23 Morphine Sulfate (Morphine Sulfate) 4 mg Q4H PRN IVP Severe Pain (Pain Scale 7-10) 05/11/16 06:30 05/18/16 06:29 05/14/16 11:30 Ondansetron HCl (Zofran) 4 mg Q4H PRN IVP Nausea & Vomiting 05/11/16 06:30 06/10/16 06:29 Pantoprazole (Protonix) 40 mg ACBREAKFAST ORAL 05/12/16 06:30 06/11/16 06:29 05/14/16 06:23 Spironolactone (Aldactone) 25 mg EVERY 12 HOURS ORAL 05/11/16 10:00 06/10/16 09:59 05/14/16 09:34 Tramadol HCl (Ultram) 50 mg Q4H PRN ORAL PAIN SCALE 4-6 05/11/16 12:15 05/18/16 12:14 05/13/16 06:26 Allergies: Coded Allergies: No Known Allergies (Unverified , 04/03/16) ROS Limited/Unobtainable: No Constitutional: Reports: no symptoms HEENT: Reports: no symptoms Cardiovascular: Reports: no symptoms Respiratory: Reports: no symptoms Gastrointestinal/Abdominal: Reports: no symptoms Genitourinary: Reports: hematuria Neurologic/Psychiatric: Reports: no symptoms Subjective 65 YO M admitted for hematuria. Cover For Int Med-Dr Francios. S/P TURP . Continues to have gross hematuria. Hemoglobin decreased today S/P transfusion 1 unit PRBC today. Objective Last Vital Signs Date Time Temp Pulse Resp B/P Pulse Ox O2 Delivery O2 Flow Rate FiO2 05/14/16 16:00 98.2 57 18 119/65 97 Room Air 05/14/16 12:00 2.0 Laboratory Tests Test 05/14/16 06:40 White Blood Count 10.1 K/UL (4.8-10.8) Red Blood Count 2.37 M/UL (4.70-6.10) L Hemoglobin 6.8 G/DL (14.2-18.0) *L Hematocrit 20.8 % (42.0-52.0) L Mean Corpuscular Volume 88 FL (80-99) Mean Corpuscular Hemoglobin 28.6 PG (27.0-31.0) Mean Corpuscular Hemoglobin Concent 32.6 G/DL (32.0-36.0) Red Cell Distribution Width 14.1 % (11.6-14.8) Platelet Count 140 K/UL (150-450) L Mean Platelet Volume 9.3 FL (6.5-10.1) Neutrophils (%) (Auto) % (45.0-75.0) Lymphocytes (%) (Auto) % (20.0-45.0) Monocytes (%) (Auto) % (1.0-10.0) Eosinophils (%) (Auto) % (0.0-3.0) Basophils (%) (Auto) % (0.0-2.0) Differential Total Cells Counted 100 Neutrophils % (Manual) 56 % (45-75) Lymphocytes % (Manual) 26 % (20-45) Monocytes % (Manual) 14 % (1-10) H Eosinophils % (Manual) 4 % (0-3) H Basophils % (Manual) 0 % (0-2) Band Neutrophils 0 % (0-8) Platelet Estimate Adequate Platelet Morphology Normal Red Blood Cell Morphology Normal Sodium Level 137 mEQ/L (135-145) Potassium Level 4.6 mEQ/L (3.4-4.9) Chloride Level 101 mEQ/L (98-107) Carbon Dioxide Level 22 mEQ/L (20-30) Anion Gap 14 (5-15) Blood Urea Nitrogen 22 mg/dL (7-23) Creatinine 1.7 mg/dL (0.7-1.2) H Estimat Glomerular Filtration Rate 49.0 mL/min (>60) Glucose Level 104 mg/dL (74-106) Calcium Level 8.1 mg/dL (8.6-10.2) L Intake and Output 05/13/16 05/14/16 19:00 07:00 Intake Total 420 ml 950 ml Output Total 400 ml 500 ml Balance 20 ml 450 ml Intake Oral 420 ml 950 ml Output Urine Total 400 ml 500 ml # Voids 1 Objective General Appearance: WD/WN, no apparent distress, alert EENT: PERRL/EOMI, normal ENT inspection, TMs normal Neck: non-tender, normal alignment, supple Cardiovascular: normal peripheral pulses, normal rate, regular rhythm, no gallop/murmur, no JVD Respiratory/Chest: chest wall non-tender, lungs clear, normal breath sounds, no respiratory distress, no accessory muscle use Abdomen: normal bowel sounds, non tender, soft, no organomegaly, no mass Extremities: normal range of motion 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 (2) Gross hematuria Assessment & Plan: S/P TURP below. Follow urology recs. (3) BPH (benign prostatic hyperplasia) Assessment & Plan: S/P TURP 05/12/16. See urology note. (4) Anemia, blood loss Assessment & Plan: Transfuse 1 unit PRBC today; 3 units total PRBC this admission (5) Cardiomyopathy (6) HTN (hypertension) Assessment & Plan: Cont coreg Status: not improved FRIDA CARRANZA May 14, 2016 20:05
[2016-05-14] MEDS: Atorvastatin 80mg tab ORAL SCH (20:40)
[2016-05-14] MEDS: traMADol 50mg tab ORAL PRN (21:43)
[2016-05-15] VITALS (14 sets, daily range): BP systolic 117–213; BP diastolic 60–100
[2016-05-15] MEDS: Morphine Sulfate 4mg/ml Inj IVP PRN ×4 (02:28→21:32)
[2016-05-15] MEDS: Diazepam 10mg/2ml Inj IV PRN ×4 (02:28→11:24)
[2016-05-15] MEDS: Spironolactone 25mg tab ORAL SCH ×2 (09:00→21:36)
[2016-05-15] MEDS: Lisinopril 10mg tab ORAL SCH (09:00)
[2016-05-15 11:21] LABS: MEAN CORPUSCULAR HEMOGLOBIN 28.5 PG (27.0-31.0); MEAN CORPUSCULAR HGB CONC 31.9 G/DL (32.0-36.0); MEAN CORPUSCULAR VOLUME 89 FL (80-99); MEAN PLATELET VOLUME 8.4 FL (6.5-10.1); PLATELET COUNT 156 K/UL (150-450); RED CELL DISTRIBUTION WIDTH 13.8 % (11.6-14.8); WHITE BLOOD COUNT 7.8 K/UL (4.8-10.8)
--- NOTE | 2016-05-15 11:27 | Cardiac Electrophysiology PN ---
Assessment/Plan Assessment/Plan 1. History of severe nonischemic dilated cardiomyopathy. Continue Coreg 3.125 mg b.i.d., Lisinopril and Aldactone 25 mg daily . Echocardiogram pending. 2. Status post biventricular St. Navid defibrillator implantation. 3. Hematuria, status post transurethral resection of prostate. Tolerated the surgery well without any complications. 4. Profound anemia Hb 6.8 due to hematuria. S/P blood transfusion last night and will get another unit today. ALAN RN Subjective Subjective No chest pain or SOB. Awaiting for urology procedure again today. Objective Last 24 Hour Vital Signs Date Time Temp Pulse Resp B/P Pulse Ox O2 Delivery O2 Flow Rate FiO2 05/15/16 08:53 97.9 72 16 145/80 97 Room Air 05/15/16 04:00 98.2 90 18 117/72 98 Room Air 05/15/16 00:00 98.2 74 18 126/60 98 Room Air 05/14/16 20:42 57 119/65 05/14/16 19:00 99.9 67 20 129/63 97 Room Air 05/14/16 16:00 98.2 57 18 119/65 97 Room Air 05/14/16 12:00 98.1 60 18 112/53 100 Nasal Cannula 2.0 Intake and Output 05/14/16 05/15/16 19:00 07:00 Intake Total 660 ml 660 ml Output Total 900 ml Balance 660 ml -240 ml Intake Oral 660 ml 660 ml Output Urine Total 900 ml # Voids 2 3 Laboratory Tests Test 05/15/16 11:00 White Blood Count 7.8 K/UL (4.8-10.8) Red Blood Count 2.70 M/UL (4.70-6.10) L Hemoglobin 7.7 G/DL (14.2-18.0) L Hematocrit 24.1 % (42.0-52.0) L Mean Corpuscular Volume 89 FL (80-99) Mean Corpuscular Hemoglobin 28.5 PG (27.0-31.0) Mean Corpuscular Hemoglobin Concent 31.9 G/DL (32.0-36.0) L Red Cell Distribution Width 13.8 % (11.6-14.8) Platelet Count 156 K/UL (150-450) Mean Platelet Volume 8.4 FL (6.5-10.1) Neutrophils (%) (Auto) % (45.0-75.0) Lymphocytes (%) (Auto) % (20.0-45.0) Monocytes (%) (Auto) % (1.0-10.0) Eosinophils (%) (Auto) % (0.0-3.0) Basophils (%) (Auto) % (0.0-2.0) Neutrophils % (Manual) Pending Lymphocytes % (Manual) Pending Platelet Estimate Pending Platelet Morphology Pending Sodium Level Pending Potassium Level Pending Chloride Level Pending Carbon Dioxide Level Pending Blood Urea Nitrogen Pending Creatinine Pending Estimat Glomerular Filtration Rate Pending Glucose Level Pending Calcium Level Pending Objective NECK: No JVD. LUNGS: Clear. CARDIOVASCULAR: Shows regular S1 and S2 with no gallop or murmur.Defibrillator is in left subclavian. ABDOMEN: Soft. EXTREMITIES: No pitting edema. LANI OCONNELL May 15, 2016 11:27
[2016-05-15 11:47] LABS: ANION GAP 10 (5-15); CALCIUM 8.2 mg/dL (8.6-10.2); CARBON DIOXIDE 24 mEQ/L (20-30); CHLORIDE 104 mEQ/L (98-107); CREATININE 1.3 mg/dL (0.7-1.2); GLOMERULAR FILTRATION RATE > 60 mL/min (>60); HEMOLYSIS 0; POTASSIUM 4.3 mEQ/L (3.4-4.9); SODIUM 138 mEQ/L (135-145)
[2016-05-15 12:00] LABS: ANISOCYTOSIS 1+; BAND NEUTROPHILS % (MANUAL) 0 % (0-8); BASOPHILS % (MANUAL) 0 % (0-2); EOSINOPHILS % (MANUAL) 8 % (0-3); HYPOCHROMASIA 3+; LYMPHOCYTES % (MANUAL) 21 % (20-45); NEUTROPHILS % (MANUAL) 59 % (45-75); PLATELET ESTIMATE ADEQUATE; PLATELET MORPHOLOGY NORMAL; TOTAL CELLS COUNTED 100
[2016-05-15] MEDS ORDERED: NS 275ml ONE ×2 (16:23→16:24)
[2016-05-15] MEDS ORDERED: Tubing Blood Filter IV ONE ×2 (16:23→16:24)
[2016-05-15] MEDS ORDERED: NS Irrig 4000ml IRRIG ONE ×5 (16:24→17:40)
[2016-05-15] MEDS ORDERED: cefOXitin 1gm Inj ONE (16:42)
--- NOTE | 2016-05-15 16:55 | Anethesia Preoperative Eval ---
Anesthesia Pre-op PMH/ROS General Date of Evaluation: May 15, 2016 Time of Evaluation: 16:50 Anesthesiologist: Kristi ASA Score: ASA 3 Mallampati Score Class I : Soft palate, uvula, fauces, pillars visible Class II: Soft palate, uvula, fauces visible Class III: Soft palate, base of uvula visible Class IV: Only hard plate visible Mallampati Classification: Class II Surgeon: Myrna Diagnosis: Gross Hematuria Surgical Procedure: Cysto revision of TUPR Anesthesia History: none Family History: no anesthesia problems Allergies: Coded Allergies: No Known Allergies (Unverified , 04/03/16) Past Medical History Cardiovascular: Reports: HTN, other - Cardiomyopathy, Denies: CAD, NC, arrhythmia, valve dz Pulmonary: Denies: COPD, MARIUSZ, asthma, other Gastrointestinal/Genitourinary: Reports: CRI, GERD, other - BPH, Denies: ESRD Neurologic/Psychiatric: Denies: CVA, TIA, dementia, depression/anxiety, other Endocrine: Denies: DM, hypothyroidism, other, steroids HEENT: Denies: LUMBEE (L), LUMBEE (R), cataract (L), cataract (R), glaucoma, other Hematology/Immune: Reports: anemia, Denies: DVT, bleeding disorder, other Musculoskeletal/Integumentary: Denies: DDD, DJD, OA, RA, edema, other PMH Narrative: as above PSxH Narrative: see chart Anesthesia Pre-op Phys. Exam Physician Exam Last Vital Signs Date Time Temp Pulse Resp B/P Pulse Ox O2 Delivery O2 Flow Rate FiO2 05/15/16 11:41 97.7 61 14 146/68 100 Nasal Cannula 05/14/16 12:00 2.0 Constitutional: NAD Neurologic: CN 2-12 intact Cardiovascular: RRR, no M/R/G Respiratory: CTA Gastrointestinal: S/NT/ND Airway Exam Mallampati Score: Class II MO: limited Neck: stiff ROM: limited Teeth: missing Dentures: no lower, no upper Anesthesia Pre-op A/P Labs Hematology Test 05/15/16 11:00 White Blood Count 7.8 K/UL (4.8-10.8) Red Blood Count 2.70 M/UL (4.70-6.10) L Hemoglobin 7.7 G/DL (14.2-18.0) L Hematocrit 24.1 % (42.0-52.0) L Mean Corpuscular Volume 89 FL (80-99) Mean Corpuscular Hemoglobin 28.5 PG (27.0-31.0) Mean Corpuscular Hemoglobin Concent 31.9 G/DL (32.0-36.0) L Red Cell Distribution Width 13.8 % (11.6-14.8) Platelet Count 156 K/UL (150-450) Mean Platelet Volume 8.4 FL (6.5-10.1) Neutrophils (%) (Auto) % (45.0-75.0) Lymphocytes (%) (Auto) % (20.0-45.0) Monocytes (%) (Auto) % (1.0-10.0) Eosinophils (%) (Auto) % (0.0-3.0) Basophils (%) (Auto) % (0.0-2.0) Differential Total Cells Counted 100 Neutrophils % (Manual) 59 % (45-75) Lymphocytes % (Manual) 21 % (20-45) Monocytes % (Manual) 12 % (1-10) H Eosinophils % (Manual) 8 % (0-3) H Basophils % (Manual) 0 % (0-2) Band Neutrophils 0 % (0-8) Platelet Estimate Adequate Platelet Morphology Normal Hypochromasia 3+ Anisocytosis 1+ Chemistry Test 05/15/16 11:00 Sodium Level 138 mEQ/L (135-145) Potassium Level 4.3 mEQ/L (3.4-4.9) Chloride Level 104 mEQ/L (98-107) Carbon Dioxide Level 24 mEQ/L (20-30) Anion Gap 10 (5-15) Blood Urea Nitrogen 19 mg/dL (7-23) Creatinine 1.3 mg/dL (0.7-1.2) H Estimat Glomerular Filtration Rate > 60 mL/min (>60) Glucose Level 97 mg/dL (74-106) Calcium Level 8.2 mg/dL (8.6-10.2) L Risk Assessment & Plan Assessment: ASA 3 Plan: GA with LMA intraoperative transfusion of PRBC Status Change Before Surgery: No Pre-Antibiotics Drug: Cefoxitin 1 gr. Given Within 1 Hr of Incision: Yes Time Given: 16:54 TANK LIRA M.D. May 15, 2016 16:54
[2016-05-15] MEDS ORDERED: fentaNYL 100 mcg/2 mL IV ONE (17:00)
[2016-05-15] MEDS ORDERED: Midazolam 2mg/2ml Inj ONE (17:00)
[2016-05-15] MEDS ORDERED: Propofol 10mg/ml 20ml IV ONE (17:00)
[2016-05-15] MEDS ORDERED: Sterile Water Irrig 1000ml IRRIG ONE (17:00)
--- NOTE | 2016-05-15 17:06 | Pre-Procedure Note/Attestation ---
Pre-Procedure Note/Attestation Complete Prior to Procedure Planned Procedure: not applicable Procedure Narrative: cysto, clot evacuation, re-do TURP Indications for Procedure Pre-Operative Diagnosis: hematuria, BPH, retention Attestation I attest that I discussed the nature of the procedure; its benefits; risks and complications; and alternatives (and the risks and benefits of such alternatives ), prior to the procedure, with the patient (or the patient's legal premium service representative). I attest that, if there was a reasonable possibility of needing a blood transfusion, the patient (or the patient's legal premium service representative) was given the [facility] standardized written summary, pursuant to the Cresencio Rebecca Blood Safety Act ([place] Health and Safety Code # 1645, as amended). I attest that I re-evaluated the patient just prior to the surgery and that there has been no change in the patient's H&P, except as documented below: Kwame Sousa M.D. May 15, 2016 17:06
[2016-05-15] MEDS ORDERED: DiphenhydrAMINE 50mg/ml Inj IVP PRN (18:00)
--- NOTE | 2016-05-15 19:34 | Brief Operative Note ---
Immediate Post Operative Note Operative Note Pre-op Diagnosis: hematuria, BPH, retention Procedure: cysto, clot evacuation, completion TURP Post-op Diagnosis: same Post-op Diagnosis: same as pre-op Surgeon: mike Anesthesia: general Specimen: yes Complications: none Condition: stable Estimated Blood Loss: minimal Drains: other - [address] Kwame Perez M.D. May 15, 2016 19:34
[2016-05-15] MEDS: fentaNYL 100 mcg/2 mL IV PRN ×3 (19:36→20:29)
--- NOTE | 2016-05-15 19:36 | Immediate Post-Op Evaluation ---
Immediate Post-Op Evalulation Immediate Post-Op Evalulation Procedure: Cysto Revision of TUPR Date of Evaluation: May 15, 2016 Time of Evaluation: 19:34 IV Fluids: 500 Blood Products: 1 unit of PRBC Estimated Blood Loss: 200 Urinary Output: n/a Blood Pressure Systolic: 165 Blood Pressure Diastolic: 84 Pulse Rate: 78 Respiratory Rate: 22 O2 Sat by Pulse Oximetry: 98 Temperature (Fahrenheit): 97.6 Pain Score (1-10): 2 Nausea: No Vomiting: No Patient Status: reacts, patent, none Hydration Status: adequate TANK LIRA M.D. May 15, 2016 19:36
[2016-05-15] MEDS ORDERED: Labetalol 5mg/ml 20ml vial IV PRN (19:45)
[2016-05-15] MEDS ORDERED: Midazolam 2mg/2ml Inj IVP PRN (19:45)
[2016-05-15] MEDS ORDERED: Diazepam 10mg/2ml Inj IV PRN (19:45)
[2016-05-15] MEDS: [UNRECOGNIZED DRUG - OTHER] RECTAL PRN (20:02)
--- NOTE | 2016-05-15 20:29 | Internal Med Progress Note ---
Subjective Date of Service: May 15, 2016 Physician Name Romero Carranza Attending Physician Blair Francois MD Current Medications Medications (Trade) Dose Ordered Sig/Gurpreet Route PRN Reason Start Time Stop Time Status Last Admin Dose Admin Acetaminophen (Tylenol) 500 mg Q6H PRN ORAL Mild Pain/Temp > 100.5 05/11/16 08:15 06/10/16 08:14 Atorvastatin Calcium (Lipitor) 80 mg QHS ORAL 05/11/16 21:00 06/10/16 20:59 05/14/16 20:40 Belladonna Alkaloids/Opium (B & O (15-A)) 60 mg TWICE A DAY PRN RECTAL spasm 05/15/16 19:45 05/22/16 19:44 05/15/16 20:02 Carvedilol (Coreg) 3.125 mg EVERY 12 HOURS ORAL 05/11/16 21:00 06/10/16 20:59 05/13/16 20:11 Diazepam (Valium) 2 mg Q6H PRN IV spasm 05/15/16 19:45 05/22/16 19:44 Diazepam 2 mg 2 mg Q2H PRN IV spasm 05/13/16 09:00 05/20/16 08:59 05/15/16 11:24 Diphenhydramine HCl (Benadryl) 25 mg Q15M PRN IVP Itching 05/15/16 18:00 05/16/16 02:00 Fentanyl Citrate (Sublimaze 100 mcg/2 mL) 25 mcg Q10M PRN IV Moderate Pain (Pain Scale 4-6) 05/15/16 18:00 05/16/16 02:00 05/15/16 19:47 Ferrous Sulfate (Feosol) 325 mg BID ORAL 05/11/16 10:00 06/10/16 09:59 05/15/16 09:01 Finasteride (Proscar) 5 mg DAILY ORAL 05/11/16 09:00 06/10/16 08:59 05/15/16 09:01 Labetalol HCl (Normodyne) 10 mg Q4H PRN IV For High Blood Pressure 05/15/16 19:45 05/15/16 23:59 Lisinopril (Zestril) 10 mg DAILY ORAL 05/12/16 19:30 06/11/16 19:29 05/13/16 09:23 Midazolam HCl (Versed 2mg/2ml vial) 1 mg PRN PRN IVP up to x2 for anxiety 05/15/16 19:45 05/15/16 23:59 05/15/16 19:41 Morphine Sulfate (Morphine Sulfate) 4 mg Q4H PRN IVP Severe Pain (Pain Scale 7-10) 05/11/16 06:30 05/18/16 06:29 05/15/16 14:07 Ondansetron HCl (Zofran) 4 mg Q1H PRN IVP Nausea & Vomiting 05/15/16 18:00 05/16/16 02:00 Ondansetron HCl (Zofran) 4 mg Q4H PRN IVP Nausea & Vomiting 05/11/16 06:30 06/10/16 06:29 Pantoprazole (Protonix) 40 mg ACBREAKFAST ORAL 05/12/16 06:30 06/11/16 06:29 05/15/16 05:37 Sodium Chloride (Sodium Chloride 1000ml bag) 1,000 ml @ 10 mls/hr Q24H IVLG 05/15/16 18:00 05/16/16 02:00 Spironolactone (Aldactone) 25 mg EVERY 12 HOURS ORAL 05/11/16 10:00 06/10/16 09:59 05/14/16 20:39 Tramadol HCl (Ultram) 50 mg Q4H PRN ORAL PAIN SCALE 4-6 05/11/16 12:15 05/18/16 12:14 05/14/16 21:43 Allergies: Coded Allergies: No Known Allergies (Unverified , 04/03/16) Subjective 65 YO M admitted for hematuria. Cover For Int Med-Dr Francois. S/P TURP . S/P Cystoscopy, clot evacuation and completion of TURP 05/15/16. Continues to have gross hematuria. Objective Last Vital Signs Date Time Temp Pulse Resp B/P Pulse Ox O2 Delivery O2 Flow Rate FiO2 05/15/16 20:00 79 20 159/76 100 Simple Mask 8.0 05/15/16 19:24 98.0 Laboratory Tests Test 05/15/16 11:00 White Blood Count 7.8 K/UL (4.8-10.8) Red Blood Count 2.70 M/UL (4.70-6.10) L Hemoglobin 7.7 G/DL (14.2-18.0) L Hematocrit 24.1 % (42.0-52.0) L Mean Corpuscular Volume 89 FL (80-99) Mean Corpuscular Hemoglobin 28.5 PG (27.0-31.0) Mean Corpuscular Hemoglobin Concent 31.9 G/DL (32.0-36.0) L Red Cell Distribution Width 13.8 % (11.6-14.8) Platelet Count 156 K/UL (150-450) Mean Platelet Volume 8.4 FL (6.5-10.1) Neutrophils (%) (Auto) % (45.0-75.0) Lymphocytes (%) (Auto) % (20.0-45.0) Monocytes (%) (Auto) % (1.0-10.0) Eosinophils (%) (Auto) % (0.0-3.0) Basophils (%) (Auto) % (0.0-2.0) Differential Total Cells Counted 100 Neutrophils % (Manual) 59 % (45-75) Lymphocytes % (Manual) 21 % (20-45) Monocytes % (Manual) 12 % (1-10) H Eosinophils % (Manual) 8 % (0-3) H Basophils % (Manual) 0 % (0-2) Band Neutrophils 0 % (0-8) Platelet Estimate Adequate Platelet Morphology Normal Hypochromasia 3+ Anisocytosis 1+ Sodium Level 138 mEQ/L (135-145) Potassium Level 4.3 mEQ/L (3.4-4.9) Chloride Level 104 mEQ/L (98-107) Carbon Dioxide Level 24 mEQ/L (20-30) Anion Gap 10 (5-15) Blood Urea Nitrogen 19 mg/dL (7-23) Creatinine 1.3 mg/dL (0.7-1.2) H Estimat Glomerular Filtration Rate > 60 mL/min (>60) Glucose Level 97 mg/dL (74-106) Calcium Level 8.2 mg/dL (8.6-10.2) L Intake and Output 05/14/16 05/15/16 19:00 07:00 Intake Total 660 ml 660 ml Output Total 900 ml Balance 660 ml -240 ml Intake Oral 660 ml 660 ml Output Urine Total 900 ml # Voids 2 3 Objective General Appearance: WD/WN, no apparent distress, alert EENT: PERRL/EOMI, normal ENT inspection, TMs normal Neck: non-tender, normal alignment, supple Cardiovascular: normal peripheral pulses, normal rate, regular rhythm, no gallop/murmur, no JVD Respiratory/Chest: chest wall non-tender, lungs clear, normal breath sounds, no respiratory distress, no accessory muscle use Abdomen: normal bowel sounds, non tender, soft, no organomegaly, no mass Extremities: normal range of motion 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 (2) Gross hematuria Assessment & Plan: S/P TURP below. Follow urology recs. (3) BPH (benign prostatic hyperplasia) Assessment & Plan: S/P TURP 05/12/16. S/P cystoscopy, clot evacuation and completion TURP 05/15/16. See urology note. (4) Anemia, blood loss Assessment & Plan: Transfuse 1 unit PRBC today; 4 units total PRBC this admission (5) Cardiomyopathy (6) HTN (hypertension) Assessment & Plan: Cont coreg Status: not improved ROMERO CARRANZA May 15, 2016 20:29
[2016-05-15] MEDS: Atorvastatin 80mg tab ORAL SCH (21:37)
[2016-05-16] VITALS: BP 150/97
[2016-05-16] MEDS: Diazepam 10mg/2ml Inj IV PRN ×5 (00:44→22:07)
[2016-05-16] MEDS: Morphine Sulfate 4mg/ml Inj IVP PRN ×3 (01:34→14:51)
--- NOTE | 2016-05-16 03:47 | Operative Note - Dictated ---
DATE OF OPERATION: 05/15/2016 PRIMARY SURGEON: Kwame Sousa M.D. PREOPERATIVE DIAGNOSIS: Gross hematuria. POSTOPERATIVE DIAGNOSIS: Gross hematuria. PROCEDURE PERFORMED: Cystoscopy, clot evacuation, completion transurethral resection of prostate. ANESTHESIA: General. EBL: Less than 100 mL. COMPLICATIONS: None. DRAINS: A 22-[place] three way Jordan catheter with 30 mL of water in the balloon. SPECIMEN: Prostate chips. HISTORY: The patient is a very complex 65-year-old gentleman with a history of coronary artery disease and recent placement of pacemaker. Since the placement of his pacemaker and Jordan catheter, he was transiently on Plavix. He resulted in gross hematuria about three weeks ago and was managed conservatively for two days and then too many clots resulted in one trip to the operating room for a prostate fulguration and clot evacuation. The patient then went home and returned to the hospital, was seen in the office a failed voiding trial and was told to repeat voiding trial approximately one week. Earlier this week, the patient then started having hematuria, again was [facility]. Continuous bladder irrigation was very bloody and the patient was not having any resolution. His previous prostate fulguration did reveal a very enlarged median lobe that was just fulgurated and partially resected for the sake for hemostasis at the time and I counseled the patient that he will likely need a full TURP for the bleeding at this point. As his coags are normal and have no other evidence of clot or no other etiology. The patient underwent a full TURP on Wednesday of this week concentrated mostly on the median lobe, which was resected with the mix of button vaporization and loop resection. After adequate resection had been done, the patient's Jordan catheter was replaced, but unfortunately the night of the surgery postop day #0, the patient's Jordan catheter started to give him problems, a mix of bladder spasms, clot retention, difficulty irrigating, and significant patient discomfort ultimately resulted and the catheter being removed Wednesday morning at the patient's . Thankfully, the patient was able to void on his own, but his urine continued to be bloody. He received a blood transfusion on postoperative day #1 and again on postoperative day #2, I counseled the patient at this point we have to return to the operating room and see bleeding fulgurate and possibly resect more. The patient is very nervous about having a catheter placed while awake because he tolerated very poorly, has very severe bladder spasm. The patient agreed to have this done in the operating room after he received a second unit of blood. He was counseled on the risks and benefits of intervention risks including, but not limited to bleeding, infection, bladder injury, ureteral injury, urethral injury, recurrent bleeding, recurrent retention, and need for further surgery. The patient signed the consent and was taken to the operating room. OPERATIVE PROCEDURE: The patient was brought to the operating room where general anesthesia was achieved easily. He received 1 g of intravenous Ancef as preoperative antibiotics. He is placed in a dorsal lithotomy position. All pressure points were padded. A 27-[place]i resectoscope sheath was placed. The anterior urethra was normal. The posterior urethra showed an adequately resected left prostate lobe and an open bladder neck. Upon entering the bladder, there is a significant amount of old clot as well as it seemed to be detritus and old debris from the resection that had sloughed off and was sitting in the bladder. Upon evaluation of the right lateral lobe, it was noted that there was a portion of the median lobe that was left behind. It was not obstructive, but was bleeding copiously at the level of the bladder neck. At this time, using a mix of button vaporization and loop resection, the residual median lobe between 9 o'clock and 6 o'clock was resected adequately to completion. The residual lateral lobe was then vaporized again and loop resection was cauterized extensively between 6 o'clock and 9 o'clock. At this time, all the residual prostate chips and clots were evacuated out of the bladder. The bladder was interrogated, there was a few areas of irritation that were coagulated. Bilateral ureteral orifices were visualized very easily. They were wide-open and uninjured. Bladder itself otherwise was intact. The scope was then carefully removed and prostate channel showed adequate opening between 12 o'clock and 9 o'clock and no resection was noted proximal to the verumontanum. The scope was gently removed and a 22-[place]i three-way Jordan catheter was placed. A 30 mL of water was filled in the balloon. Catheter was placed on light traction and placed on continuous bladder irrigation. The irrigant was light pink at the end of the case. The patient was transferred to the recovery room in stable fashion. I was present for the entire case. All instrument counts were correct at the end of the case. PLAN: 1. The patient will be observed closely tonight. 2. Continuous bladder irrigation. 3. Aggressive management of bladder spasms with intravenous Valium and belladonna and opium suppositories. 4. Clamp irrigation in the morning if the patient's urine is clear. 5. Plan for observation off irrigation Wednesday and Wednesday with hopeful discharge Wednesday with catheter in and outpatient voiding trial. Kwame Sousa DR: MJ JOB#: [id number] CC:
[2016-05-16 04:00] VITALS: BP 152/71
[2016-05-16] MEDS: traMADol 50mg tab ORAL PRN (04:03)
[2016-05-16 07:17] LABS: EOSINOPHILS % (AUTO) 4.3 % (0.0-3.0); LYMPHOCYTES % (AUTO) 17.5 % (20.0-45.0); MEAN CORPUSCULAR HEMOGLOBIN 29.4 PG (27.0-31.0); MEAN CORPUSCULAR HGB CONC 33.1 G/DL (32.0-36.0); MEAN CORPUSCULAR VOLUME 89 FL (80-99); MEAN PLATELET VOLUME 7.8 FL (6.5-10.1); MONOCYTES % (AUTO) 12.4 % (1.0-10.0); NEUTROPHILS % (AUTO) 64.9 % (45.0-75.0); PLATELET COUNT 178 K/UL (150-450); RED CELL DISTRIBUTION WIDTH 13.4 % (11.6-14.8); WHITE BLOOD COUNT 7.9 K/UL (4.8-10.8)
[2016-05-16 07:22] LABS: ANION GAP 13 (5-15); CALCIUM 8.5 mg/dL (8.6-10.2); CARBON DIOXIDE 22 mEQ/L (20-30); CHLORIDE 103 mEQ/L (98-107); CREATININE 1.2 mg/dL (0.7-1.2); GLOMERULAR FILTRATION RATE > 60 mL/min (>60); HEMOLYSIS 6; POTASSIUM 4.6 mEQ/L (3.4-4.9); SODIUM 138 mEQ/L (135-145)
[2016-05-16 08:28] VITALS: BP 116/71
--- NOTE | 2016-05-16 08:29 | Cardiology Report ---
APPROVED REPORT EXAM: Two-dimensional and M-mode echocardiogram with Doppler and color Doppler. M-Mode DIMENSIONS IVSd1.1 (0.7-1.1cm)Left Atrium (MM)4.4 (1.6-4.0cm) LVDd6.3 (3.5-5.6cm)Aortic Root4.0 (2.0-3.7cm) PWd1.2 (0.7-1.1cm)Aortic Cusp Exc.2.2 (1.5-2.0cm) LVDs6.0 (2.5-4.0cm) PWs2.0 cm Technically difficult and limited study due to patient pain. Left ventricular ejection fraction estimated to be 40-45%. No left ventricular hypertrophy. Global left ventricular hypokinesis.worse in inferior and infero lateral wall Moderate left ventricular enlargment. Probable pacemaker wire present in the right side chambers. Mild left atrial enlargment. Pulmonic valve not well visualized. Normal tricuspid valve structure. IVC at 1.8cm with physiologic collapse. Mitral and aortic vavle thickening A color flow and spectral Doppler study was performed and revealed: Severe aortic regurgitation. Trace mitral regurgitation. Mitral inflow velocities indicates reduced left ventricular relaxation diastolic dysfunction. Grade one. Trace tricuspid regurgitation. Tricuspid systolic velocities suggests peak right ventricular systolic pressure of 10 mmHg
[2016-05-16] MEDS: Lisinopril 10mg tab ORAL SCH (09:00)
[2016-05-16] MEDS: Spironolactone 25mg tab ORAL SCH ×2 (09:17→22:02)
--- NOTE | 2016-05-16 09:41 | 48 Hour Post Anesthesia Eval ---
Post Anesthesia Evaluation Procedure: Cysto Revision of TUPR Date of Evaluation: May 16, 2016 Time of Evaluation: 09:37 Blood Pressure Systolic: 124 0: 78 Pulse Rate: 72 Respiratory Rate: 22 Temperature (Fahrenheit): 97.2 O2 Sat by Pulse Oximetry: 98 Airway: patent Nausea: No Vomiting: No Pain Intensity: 2 Hydration Status: adequate Cardiopulmonary Status: stable Mental Status/LOC: patient returned to baseline Follow-up Care/Observations: n/a Post-Anesthesia Complications: none Follow-up care needed: N/A TANK LIRA M.D. May 16, 2016 09:41
--- NOTE | 2016-05-16 11:29 | Urology Progress Note ---
Assessment/Plan Status: doing well, stable Assessment/Plan Excellent urine color. Improved H/H. Very comfortable. 1. monitor H/H, if stable tomorrow ok to DC back to rehab Wednesday 2. continue marcelino for 1 week, will remove as outpatient. Subjective Date patient seen: May 16, 2016 Time patient seen: 11:27 ROS Limited/Unobtainable: No Constitutional: Denies: chills, diaphoresis, fever, malaise, no symptoms, other , weakness HEENT: Denies: blurred vision, double vision, ear discharge, ear pain, eye pain , mouth pain, mouth swelling, no symptoms, nose congestion, nose pain, other, tearing, throat pain, throat swelling Cardiovascular: Denies: chest pain, edema, irregular heart rate, lightheadedness, no symptoms, other, palpitations, syncope Respiratory: Denies: SOB at rest, SOB with excertion, cough, no symptoms, orthopnea, other, shortness of breath, sputum, stridor, wheezing Gastrointestinal/Abdominal: Denies: abdomen distended, abdominal pain, black stools, blood in stool, constipated, diarrhea, difficulty swallowing, nausea, no symptoms, other, poor appetite, poor fluid intake, rectal bleeding, tarry stools, vomiting Genitourinary: Denies: burning, discharge, flank pain, frequency, hematuria, incontinence, no symptoms, other, pain, urgency Neurologic/Psychiatric: Denies: anxiety, depressed, emotional problems, headache, no symptoms, numbness, other, paresthesia, pre-existing deficit, seizure, tingling, tremors, weakness Endocrine: Denies: excessive sweating, flushing, increased hunger, increased thirst, increased urine, intolerance to cold, intolerance to heat, no symptoms, other, unexplained weight gain, unexplained weight loss Hematologic/Lymphatic: Denies: anemia, easy bleeding, easy bruising, no symptoms, other Allergies: Coded Allergies: No Known Allergies (Unverified , 04/03/16) Subjective resting comfortably. urine yellow Objective Last 24 Hour Vital Signs Date Time Temp Pulse Resp B/P Pulse Ox O2 Delivery O2 Flow Rate FiO2 05/16/16 09:41 72 22 98 05/16/16 09:00 116/71 05/16/16 09:00 74 116/71 05/16/16 08:28 98.8 74 14 116/71 99 Room Air 05/16/16 04:00 97.7 81 19 152/71 97 Nasal Cannula 3.0 05/16/16 00:00 98.4 84 18 150/97 97 Nasal Cannula 3.0 05/15/16 22:02 98.0 05/15/16 21:08 98.0 05/15/16 20:45 98.0 78 20 153/70 100 Nasal Cannula 3.0 05/15/16 20:39 98.0 78 20 183/73 100 Nasal Cannula 3.0 05/15/16 20:29 78 20 183/73 100 Nasal Cannula 3.0 05/15/16 20:15 79 20 189/96 100 Simple Mask 8.0 05/15/16 20:00 79 20 159/76 100 Simple Mask 8.0 05/15/16 19:47 86 20 184/72 100 Simple Mask 8.0 05/15/16 19:38 81 20 196/82 100 Simple Mask 8.0 05/15/16 19:36 81 20 206/83 100 Simple Mask 8.0 05/15/16 19:36 78 22 98 05/15/16 19:29 93 20 206/83 100 Simple Mask 8.0 05/15/16 19:24 98.0 93 20 213/100 100 Simple Mask 8.0 05/15/16 11:41 97.7 61 14 146/68 100 Nasal Cannula Intake and Output 05/15/16 05/16/16 19:00 07:00 Intake Total 250 ml 2250 ml Output Total 300 ml 1170 ml Balance -50 ml 1080 ml Intake Oral 0 ml IV Total 2000 ml Blood Product 250 ml 250 ml Output Urine Total 300 ml 970 ml Estimated Blood Loss 200 ml Laboratory Tests 05/16/16 05:45: White Blood Count 7.9, Red Blood Count 3.00L, Hemoglobin 8.8L, Hematocrit 26.7L , Mean Corpuscular Volume 89, Mean Corpuscular Hemoglobin 29.4, Mean Corpuscular Hemoglobin Concent 33.1, Red Cell Distribution Width 13.4, Platelet Count 178, Mean Platelet Volume 7.8, Neutrophils (%) (Auto) 64.9, Lymphocytes (% ) (Auto) 17.5L, Monocytes (%) (Auto) 12.4H, Eosinophils (%) (Auto) 4.3H, Basophils (%) (Auto) 1.0, Sodium Level 138, Potassium Level 4.6, Chloride Level 103, Carbon Dioxide Level 22, Anion Gap 13, Blood Urea Nitrogen 15, Creatinine 1.2, Estimat Glomerular Filtration Rate > 60, Glucose Level 106, Calcium Level 8.5L Height (Feet): 5 Height (Inches): 8.00 Weight (Pounds): 160 General Appearance: WD/WN Abdomen: soft Genitourinary/Rectal: other - marcelino in place, yellow urine Kwame Sousa M.D. May 16, 2016 11:29
--- NOTE | 2016-05-16 11:50 | Pulmonology Progress Note ---
Assessment/Plan Problems: (1) Hemorrhagic shock (2) Cardiomyopathy (3) S/P TURP (4) Gross hematuria (5) Pacemaker Assessment/Plan h/h stable f/u labs daily anemia work up titrate cardiac meds Subjective ROS Limited/Unobtainable: No Interval Events: no new complains Allergies: Coded Allergies: No Known Allergies (Unverified , 04/03/16) Objective Last 24 Hour Vital Signs Date Time Temp Pulse Resp B/P Pulse Ox O2 Delivery O2 Flow Rate FiO2 05/16/16 09:41 72 22 98 05/16/16 09:00 116/71 05/16/16 09:00 74 116/71 05/16/16 08:28 98.8 74 14 116/71 99 Room Air 05/16/16 04:00 97.7 81 19 152/71 97 Nasal Cannula 3.0 05/16/16 00:00 98.4 84 18 150/97 97 Nasal Cannula 3.0 05/15/16 22:02 98.0 05/15/16 21:08 98.0 05/15/16 20:45 98.0 78 20 153/70 100 Nasal Cannula 3.0 05/15/16 20:39 98.0 78 20 183/73 100 Nasal Cannula 3.0 05/15/16 20:29 78 20 183/73 100 Nasal Cannula 3.0 05/15/16 20:15 79 20 189/96 100 Simple Mask 8.0 05/15/16 20:00 79 20 159/76 100 Simple Mask 8.0 05/15/16 19:47 86 20 184/72 100 Simple Mask 8.0 05/15/16 19:38 81 20 196/82 100 Simple Mask 8.0 05/15/16 19:36 81 20 206/83 100 Simple Mask 8.0 05/15/16 19:36 78 22 98 05/15/16 19:29 93 20 206/83 100 Simple Mask 8.0 05/15/16 19:24 98.0 93 20 213/100 100 Simple Mask 8.0 Intake and Output 05/15/16 05/16/16 19:00 07:00 Intake Total 250 ml 2250 ml Output Total 300 ml 1170 ml Balance -50 ml 1080 ml Intake Oral 0 ml IV Total 2000 ml Blood Product 250 ml 250 ml Output Urine Total 300 ml 970 ml Estimated Blood Loss 200 ml General Appearance: WD/WN HEENT: normocephalic, atraumatic Respiratory/Chest: chest wall non-tender, lungs clear Abdomen: normal bowel sounds Extremities: no cyanosis, no clubbing Skin: no rash Laboratory Tests 05/16/16 05:45: White Blood Count 7.9, Red Blood Count 3.00L, Hemoglobin 8.8L, Hematocrit 26.7L , Mean Corpuscular Volume 89, Mean Corpuscular Hemoglobin 29.4, Mean Corpuscular Hemoglobin Concent 33.1, Red Cell Distribution Width 13.4, Platelet Count 178, Mean Platelet Volume 7.8, Neutrophils (%) (Auto) 64.9, Lymphocytes (% ) (Auto) 17.5L, Monocytes (%) (Auto) 12.4H, Eosinophils (%) (Auto) 4.3H, Basophils (%) (Auto) 1.0, Sodium Level 138, Potassium Level 4.6, Chloride Level 103, Carbon Dioxide Level 22, Anion Gap 13, Blood Urea Nitrogen 15, Creatinine 1.2, Estimat Glomerular Filtration Rate > 60, Glucose Level 106, Calcium Level 8.5L Current Medications Medications (Trade) Dose Ordered Sig/Gurpreet Route PRN Reason Start Time Stop Time Status Last Admin Dose Admin Acetaminophen (Tylenol) 500 mg Q6H PRN ORAL Mild Pain/Temp > 100.5 05/11/16 08:15 06/10/16 08:14 Atorvastatin Calcium (Lipitor) 80 mg QHS ORAL 05/11/16 21:00 06/10/16 20:59 05/14/16 20:40 Belladonna Alkaloids/Opium (B & O (15-A)) 60 mg TWICE A DAY PRN RECTAL spasm 05/15/16 19:45 05/22/16 19:44 05/15/16 20:02 Carvedilol (Coreg) 3.125 mg EVERY 12 HOURS ORAL 05/11/16 21:00 06/10/16 20:59 05/13/16 20:11 Diazepam (Valium) 2 mg Q2H PRN IV spasm 05/13/16 09:00 05/20/16 08:59 05/16/16 09:16 Ferrous Sulfate (Feosol) 325 mg BID ORAL 05/11/16 10:00 06/10/16 09:59 05/16/16 09:18 Finasteride (Proscar) 5 mg DAILY ORAL 05/11/16 09:00 06/10/16 08:59 05/16/16 09:17 Lisinopril (Zestril) 10 mg DAILY ORAL 05/12/16 19:30 06/11/16 19:29 05/13/16 09:23 Morphine Sulfate (Morphine Sulfate) 4 mg Q4H PRN IVP Severe Pain (Pain Scale 7-10) 05/11/16 06:30 05/18/16 06:29 05/16/16 06:00 Ondansetron HCl (Zofran) 4 mg Q4H PRN IVP Nausea & Vomiting 05/11/16 06:30 06/10/16 06:29 Pantoprazole (Protonix) 40 mg ACBREAKFAST ORAL 05/12/16 06:30 06/11/16 06:29 05/16/16 05:59 Spironolactone (Aldactone) 25 mg EVERY 12 HOURS ORAL 05/11/16 10:00 06/10/16 09:59 05/16/16 09:17 Tramadol HCl (Ultram) 50 mg Q4H PRN ORAL PAIN SCALE 4-6 05/11/16 12:15 05/18/16 12:14 05/16/16 04:03 ARMEN PRAKASH May 16, 2016 11:50
[2016-05-16 11:56] VITALS: BP 131/91
--- NOTE | 2016-05-16 13:12 | Cardiac Electrophysiology PN ---
Assessment/Plan Status Narrative Technically difficult and limited study due to patient pain. Left ventricular ejection fraction estimated to be 40-45%. No left ventricular hypertrophy. Global left ventricular hypokinesis.worse in inferior and infero lateral wall Moderate left ventricular enlargment. Probable pacemaker wire present in the right side chambers. Mild left atrial enlargment. Pulmonic valve not well visualized. Normal tricuspid valve structure. IVC at 1.8cm with physiologic collapse. Mitral and aortic vavle thickening Assessment/Plan 1. History of severe nonischemic dilated cardiomyopathy.EF 40-45%. Continue Coreg 3.125 mg b.i.d., Lisinopril and Aldactone 25 mg daily. 2. Status post biventricular St. Navid defibrillator implantation. 3. Hematuria, status post transurethral resection of prostate. Tolerated the surgery well without any complications. 4. Profound anemia Hb 6.8 due to hematuria. No further hematuria after Cystoscopy, clot evacuation, completion transurethral resection of prostate yesterday. ALAN RN Subjective Subjective No chest pain or SOB. No further hematuria after Cystoscopy, clot evacuation, completion transurethral resection of prostate yesterday. Objective Last 24 Hour Vital Signs Date Time Temp Pulse Resp B/P Pulse Ox O2 Delivery O2 Flow Rate FiO2 05/16/16 11:56 98.6 71 16 131/91 97 05/16/16 09:41 72 22 98 05/16/16 09:00 116/71 05/16/16 09:00 74 116/71 05/16/16 08:28 98.8 74 14 116/71 99 Room Air 05/16/16 04:00 97.7 81 19 152/71 97 Nasal Cannula 3.0 05/16/16 00:00 98.4 84 18 150/97 97 Nasal Cannula 3.0 05/15/16 22:02 98.0 05/15/16 21:08 98.0 05/15/16 20:45 98.0 78 20 153/70 100 Nasal Cannula 3.0 05/15/16 20:39 98.0 78 20 183/73 100 Nasal Cannula 3.0 05/15/16 20:29 78 20 183/73 100 Nasal Cannula 3.0 05/15/16 20:15 79 20 189/96 100 Simple Mask 8.0 05/15/16 20:00 79 20 159/76 100 Simple Mask 8.0 05/15/16 19:47 86 20 184/72 100 Simple Mask 8.0 05/15/16 19:38 81 20 196/82 100 Simple Mask 8.0 05/15/16 19:36 81 20 / 100 Simple Mask 8.0 05/15/16 19:36 78 22 98 05/15/16 19:29 93 20 206/83 100 Simple Mask 8.0 05/15/16 19:24 98.0 93 20 213/100 100 Simple Mask 8.0 Intake and Output 05/15/16 05/16/16 18:59 06:59 Intake Total 250 ml 2250 ml Output Total 300 ml 1170 ml Balance -50 ml 1080 ml Intake Oral 0 ml IV Total 2000 ml Blood Product 250 ml 250 ml Output Urine Total 300 ml 970 ml Estimated Blood Loss 200 ml Laboratory Tests Test 05/16/16 05:45 White Blood Count 7.9 K/UL (4.8-10.8) Red Blood Count 3.00 M/UL (4.70-6.10) L Hemoglobin 8.8 G/DL (14.2-18.0) L Hematocrit 26.7 % (42.0-52.0) L Mean Corpuscular Volume 89 FL (80-99) Mean Corpuscular Hemoglobin 29.4 PG (27.0-31.0) Mean Corpuscular Hemoglobin Concent 33.1 G/DL (32.0-36.0) Red Cell Distribution Width 13.4 % (11.6-14.8) Platelet Count 178 K/UL (150-450) Mean Platelet Volume 7.8 FL (6.5-10.1) Neutrophils (%) (Auto) 64.9 % (45.0-75.0) Lymphocytes (%) (Auto) 17.5 % (20.0-45.0) L Monocytes (%) (Auto) 12.4 % (1.0-10.0) H Eosinophils (%) (Auto) 4.3 % (0.0-3.0) H Basophils (%) (Auto) 1.0 % (0.0-2.0) Erythrocyte Sedimentation Rate Pending Reticulocyte Count Pending Sodium Level 138 mEQ/L (135-145) Potassium Level 4.6 mEQ/L (3.4-4.9) Chloride Level 103 mEQ/L (98-107) Carbon Dioxide Level 22 mEQ/L (20-30) Anion Gap 13 (5-15) Blood Urea Nitrogen 15 mg/dL (7-23) Creatinine 1.2 mg/dL (0.7-1.2) Estimat Glomerular Filtration Rate > 60 mL/min (>60) Glucose Level 106 mg/dL (74-106) Calcium Level 8.5 mg/dL (8.6-10.2) L Iron Level Pending Unsaturated Iron Binding Pending Lactate Dehydrogenase 257 U/L (135-230) H Carcinoembryonic Antigen Pending Vitamin B12 Level Pending Folate Pending Objective NECK: No JVD. LUNGS: Clear. CARDIOVASCULAR: Shows regular S1 and S2 with no gallop or murmur.Defibrillator is in left subclavian. ABDOMEN: Soft. EXTREMITIES: No pitting edema. LANI OCONNELL May 16, 2016 13:12
[2016-05-16 13:57] LABS: ERYTHROCYTE SEDIMENTATION RATE 92 MM/HR (0-20); PATH BLOOD SMEAR/OMC SENT TO PATHOLOGIST
[2016-05-16 14:24] LABS: RETICULOCYTE COUNT 1.1 % (0.0-2.0)
[2016-05-16 16:00] VITALS: BP 144/91
--- NOTE | 2016-05-16 16:32 | Internal Med Progress Note ---
Subjective Date of Service: May 16, 2016 Physician Name Romero Jones Attending Physician Blair Francois MD Current Medications Medications (Trade) Dose Ordered Sig/Gurpreet Route PRN Reason Start Time Stop Time Status Last Admin Dose Admin Acetaminophen (Tylenol) 500 mg Q6H PRN ORAL Mild Pain/Temp > 100.5 05/11/16 08:15 06/10/16 08:14 Atorvastatin Calcium (Lipitor) 80 mg QHS ORAL 05/11/16 21:00 06/10/16 20:59 05/14/16 20:40 Belladonna Alkaloids/Opium (B & O (15-A)) 60 mg TWICE A DAY PRN RECTAL spasm 05/15/16 19:45 05/22/16 19:44 05/15/16 20:02 Carvedilol (Coreg) 3.125 mg EVERY 12 HOURS ORAL 05/11/16 21:00 06/10/16 20:59 05/13/16 20:11 Diazepam (Valium) 2 mg Q2H PRN IV spasm 05/13/16 09:00 05/20/16 08:59 05/16/16 09:16 Ferrous Sulfate (Feosol) 325 mg BID ORAL 05/11/16 10:00 06/10/16 09:59 05/16/16 09:18 Finasteride (Proscar) 5 mg DAILY ORAL 05/11/16 09:00 06/10/16 08:59 05/16/16 09:17 Lisinopril (Zestril) 10 mg DAILY ORAL 05/12/16 19:30 06/11/16 19:29 05/13/16 09:23 Morphine Sulfate (Morphine Sulfate) 4 mg Q4H PRN IVP Severe Pain (Pain Scale 7-10) 05/11/16 06:30 05/18/16 06:29 05/16/16 14:51 Ondansetron HCl (Zofran) 4 mg Q4H PRN IVP Nausea & Vomiting 05/11/16 06:30 06/10/16 06:29 Pantoprazole (Protonix) 40 mg ACBREAKFAST ORAL 05/12/16 06:30 06/11/16 06:29 05/16/16 05:59 Spironolactone (Aldactone) 25 mg EVERY 12 HOURS ORAL 05/11/16 10:00 06/10/16 09:59 05/16/16 09:17 Tramadol HCl (Ultram) 50 mg Q4H PRN ORAL PAIN SCALE 4-6 05/11/16 12:15 05/18/16 12:14 05/16/16 04:03 Allergies: Coded Allergies: No Known Allergies (Unverified , 04/03/16) ROS Limited/Unobtainable: No Constitutional: Reports: no symptoms HEENT: Reports: no symptoms Cardiovascular: Reports: no symptoms Respiratory: Reports: no symptoms Gastrointestinal/Abdominal: Reports: no symptoms Genitourinary: Reports: no symptoms Neurologic/Psychiatric: Reports: no symptoms Subjective 65 YO M admitted for hematuria. Cover For Int Med-Dr Francois. S/P TURP . S/P Cystoscopy, clot evacuation and completion of TURP 05/15/16. Urine clear today. Objective Last Vital Signs Date Time Temp Pulse Resp B/P Pulse Ox O2 Delivery O2 Flow Rate FiO2 05/16/16 11:56 98.6 71 16 131/91 97 05/16/16 08:28 Room Air 05/16/16 04:00 3.0 Laboratory Tests Test 05/16/16 05:45 White Blood Count 7.9 K/UL (4.8-10.8) Red Blood Count 3.00 M/UL (4.70-6.10) L Hemoglobin 8.8 G/DL (14.2-18.0) L Hematocrit 26.7 % (42.0-52.0) L Mean Corpuscular Volume 89 FL (80-99) Mean Corpuscular Hemoglobin 29.4 PG (27.0-31.0) Mean Corpuscular Hemoglobin Concent 33.1 G/DL (32.0-36.0) Red Cell Distribution Width 13.4 % (11.6-14.8) Platelet Count 178 K/UL (150-450) Mean Platelet Volume 7.8 FL (6.5-10.1) Neutrophils (%) (Auto) 64.9 % (45.0-75.0) Lymphocytes (%) (Auto) 17.5 % (20.0-45.0) L Monocytes (%) (Auto) 12.4 % (1.0-10.0) H Eosinophils (%) (Auto) 4.3 % (0.0-3.0) H Basophils (%) (Auto) 1.0 % (0.0-2.0) Erythrocyte Sedimentation Rate 92 MM/HR (0-20) H Reticulocyte Count 1.1 % (0.0-2.0) Sodium Level 138 mEQ/L (135-145) Potassium Level 4.6 mEQ/L (3.4-4.9) Chloride Level 103 mEQ/L (98-107) Carbon Dioxide Level 22 mEQ/L (20-30) Anion Gap 13 (5-15) Blood Urea Nitrogen 15 mg/dL (7-23) Creatinine 1.2 mg/dL (0.7-1.2) Estimat Glomerular Filtration Rate > 60 mL/min (>60) Glucose Level 106 mg/dL (74-106) Calcium Level 8.5 mg/dL (8.6-10.2) L Iron Level 24 ug/dL (59-158) L Total Iron Binding Capacity 195 ug/dL (250-400) L Percent Iron Saturation 12 % (15-50) L Unsaturated Iron Binding 171 ug/dL (112-346) Lactate Dehydrogenase 257 U/L (135-230) H Carcinoembryonic Antigen 1.3 ng/mL Vitamin B12 Level 759 pg/mL (211-946) Folate Pending Intake and Output 05/15/16 05/16/16 19:00 07:00 Intake Total 250 ml 2250 ml Output Total 300 ml 1170 ml Balance -50 ml 1080 ml Intake Oral 0 ml IV Total 2000 ml Blood Product 250 ml 250 ml Output Urine Total 300 ml 970 ml Estimated Blood Loss 200 ml Objective General Appearance: WD/WN, no apparent distress, alert EENT: PERRL/EOMI, normal ENT inspection, TMs normal Neck: non-tender, normal alignment, supple Cardiovascular: normal peripheral pulses, normal rate, regular rhythm, no gallop/murmur, no JVD Respiratory/Chest: chest wall non-tender, lungs clear, normal breath sounds, no respiratory distress, no accessory muscle use Abdomen: normal bowel sounds, non tender, soft, no organomegaly, no mass Extremities: normal range of motion Neurologic: skin former II-XII 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 (2) Gross hematuria Assessment & Plan: Resolving. S/P TURP below. Follow urology recs. (3) BPH (benign prostatic hyperplasia) Assessment & Plan: S/P TURP 05/12/16. S/P cystoscopy, clot evacuation and completion TURP 05/15/16. See urology note. (4) Anemia, blood loss Assessment & Plan: Stable hemoglobin. S/P transfusion 4 units total PRBC this admission (5) Cardiomyopathy (6) HTN (hypertension) Assessment & Plan: Cont coreg Status: progressing Assessment/Plan Discharge planning: ROMERO Montoya May 16, 2016 16:32
[2016-05-16] MEDS: Fleet's Enema 133ml RECTAL ONE ×2 (16:55→17:30)
[2016-05-16] MEDS: Lidocaine 4% Cream 15g TOPIC PRN (18:16)
[2016-05-16 19:00] VITALS: BP 148/71
[2016-05-16] MEDS: Atorvastatin 80mg tab ORAL SCH (22:10)
[2016-05-17] VITALS: BP 105/67
[2016-05-17] MEDS: Morphine Sulfate 4mg/ml Inj IVP PRN ×3 (00:38→09:57)
[2016-05-17 04:00] VITALS: BP 119/64
[2016-05-17 08:05] VITALS: BP 137/63
--- NOTE | 2016-05-17 08:39 | Urology Progress Note ---
Assessment/Plan Assessment/Plan Excellent urine color. Stable H/H. Voiding well, residual is high, but given low tolerance for catheter at this point recommend leaving out.. 1.if h/h continues to be stable, ok to dc home tomorrow Subjective Date patient seen: May 17, 2016 Time patient seen: 08:38 Constitutional: Denies: chills, diaphoresis, fever, malaise, no symptoms, other , weakness HEENT: Denies: blurred vision, double vision, ear discharge, ear pain, eye pain , mouth pain, mouth swelling, no symptoms, nose congestion, nose pain, other, tearing, throat pain, throat swelling Cardiovascular: Denies: chest pain, edema, irregular heart rate, lightheadedness, no symptoms, other, palpitations, syncope Respiratory: Denies: SOB at rest, SOB with excertion, cough, no symptoms, orthopnea, other, shortness of breath, sputum, stridor, wheezing Gastrointestinal/Abdominal: Denies: abdomen distended, abdominal pain, black stools, blood in stool, constipated, diarrhea, difficulty swallowing, nausea, no symptoms, other, poor appetite, poor fluid intake, rectal bleeding, tarry stools, vomiting Genitourinary: Denies: burning, discharge, flank pain, frequency, hematuria, incontinence, no symptoms, other, pain, urgency Neurologic/Psychiatric: Denies: anxiety, depressed, emotional problems, headache, no symptoms, numbness, other, paresthesia, pre-existing deficit, seizure, tingling, tremors, weakness Endocrine: Denies: excessive sweating, flushing, increased hunger, increased thirst, increased urine, intolerance to cold, intolerance to heat, no symptoms, other, unexplained weight gain, unexplained weight loss Hematologic/Lymphatic: Denies: anemia, easy bleeding, easy bruising, no symptoms, other Allergies: Coded Allergies: No Known Allergies (Unverified , 04/03/16) Subjective catheter removed by nurse yesterday. feeling well. urine yellow Objective Last 24 Hour Vital Signs Date Time Temp Pulse Resp B/P Pulse Ox O2 Delivery O2 Flow Rate FiO2 05/17/16 08:05 98.1 63 14 137/63 99 Room Air 05/17/16 04:00 98.6 75 16 119/64 96 Room Air 05/17/16 00:00 99.0 66 18 105/67 95 Room Air 05/16/16 22:02 74 148/71 05/16/16 19:00 95.9 74 20 148/71 100 Room Air 05/16/16 16:00 97.3 95 20 144/91 95 Room Air 05/16/16 15:21 98.6 05/16/16 11:56 98.6 71 16 131/91 97 05/16/16 09:41 72 22 98 05/16/16 09:00 116/71 05/16/16 09:00 74 116/71 [facility] tableLaboratory Tests 05/16/16 20:10: Stool Occult Blood [Pending] 05/17/16 08:05: White Blood Count [Pending], Red Blood Count [Pending], Hemoglobin [Pending], Hematocrit [Pending], Mean Corpuscular Volume [Pending], Mean Corpuscular Hemoglobin [Pending], Mean Corpuscular Hemoglobin Concent [Pending], Red Cell Distribution Width [Pending], Platelet Count [Pending], Mean Platelet Volume [ Pending], Neutrophils (%) (Auto) [Pending], Lymphocytes (%) (Auto) [Pending], Monocytes (%) (Auto) [Pending], Eosinophils (%) (Auto) [Pending], Basophils (%) (Auto) [Pending], Prothrombin Time [Pending], Prothromb Time International Ratio [Pending], Activated Partial Thromboplast Time [Pending], Sodium Level [ Pending], Potassium Level [Pending], Chloride Level [Pending], Carbon Dioxide Level [Pending], Blood Urea Nitrogen [Pending], Creatinine [Pending], Estimat Glomerular Filtration Rate [Pending], Glucose Level [Pending], Calcium Level [ Pending] Height (Feet): 5 Height (Inches): 8.00 Weight (Pounds): 160 General Appearance: WD/WN Abdomen: non tender, soft Kwame Sousa M.D. May 17, 2016 08:39
[2016-05-17 08:46] LABS: PROTHROMBIN TIME 10.6 SEC (9.30-11.50)
[2016-05-17] MEDS: Lisinopril 10mg tab ORAL SCH (08:48)
[2016-05-17] MEDS: Spironolactone 25mg tab ORAL SCH ×2 (08:48→21:35)
[2016-05-17] MEDS: Lidocaine 4% Cream 15g TOPIC PRN (08:48)
[2016-05-17 08:50] LABS: BASOPHILS % (AUTO) 0.7 % (0.0-2.0); EOSINOPHILS % (AUTO) 4.1 % (0.0-3.0); LYMPHOCYTES % (AUTO) 19.7 % (20.0-45.0); MEAN CORPUSCULAR HEMOGLOBIN 28.9 PG (27.0-31.0); MEAN CORPUSCULAR VOLUME 90 FL (80-99); MEAN PLATELET VOLUME 8.5 FL (6.5-10.1); NEUTROPHILS % (AUTO) 64.5 % (45.0-75.0); PLATELET COUNT 217 K/UL (150-450); RED BLOOD COUNT 3.33 M/UL (4.70-6.10); RED CELL DISTRIBUTION WIDTH 13.9 % (11.6-14.8); WHITE BLOOD COUNT 9.6 K/UL (4.8-10.8)
[2016-05-17 09:24] LABS: ANION GAP 14 (5-15); CALCIUM 8.9 mg/dL (8.6-10.2); CARBON DIOXIDE 24 mEQ/L (20-30); CHLORIDE 101 mEQ/L (98-107); CREATININE 1.2 mg/dL (0.7-1.2); GLOMERULAR FILTRATION RATE > 60 mL/min (>60); HEMOLYSIS 0; POTASSIUM 4.1 mEQ/L (3.4-4.9); SODIUM 139 mEQ/L (135-145)
[2016-05-17 12:00] VITALS: BP 125/62
[2016-05-17] MEDS: Diazepam 10mg/2ml Inj IV PRN ×2 (14:00→21:35)
[2016-05-17 16:46] VITALS: BP 140/72
[2016-05-17] MEDS: [UNRECOGNIZED DRUG - OTHER] RECTAL PRN (17:58)
--- NOTE | 2016-05-17 18:17 | Internal Med Progress Note ---
Subjective Date of Service: May 17, 2016 Physician Name Frida Jones Attending Physician Blair Francois MD Current Medications Medications (Trade) Dose Ordered Sig/Gurpreet Route PRN Reason Start Time Stop Time Status Last Admin Dose Admin Acetaminophen (Tylenol) 500 mg Q6H PRN ORAL Mild Pain/Temp > 100.5 05/11/16 08:15 06/10/16 08:14 Atorvastatin Calcium (Lipitor) 80 mg QHS ORAL 05/11/16 21:00 06/10/16 20:59 05/16/16 22:10 Belladonna Alkaloids/Opium (B & O (15-A)) 60 mg TWICE A DAY PRN RECTAL spasm 05/15/16 19:45 05/22/16 19:44 05/17/16 17:58 Carvedilol (Coreg) 3.125 mg EVERY 12 HOURS ORAL 05/11/16 21:00 06/10/16 20:59 05/17/16 08:47 Cetylpyridinium Chloride (Cepacol) 1 lozenge EVERY 2 HOURS PRN DORETHA sore throat 05/17/16 14:00 06/16/16 13:59 05/17/16 18:03 Diazepam (Valium) 2 mg Q1H PRN IV spasm 05/17/16 01:37 05/24/16 01:36 05/17/16 14:00 Ferrous Sulfate (Feosol) 325 mg BID ORAL 05/11/16 10:00 06/10/16 09:59 05/17/16 17:58 Finasteride (Proscar) 5 mg DAILY ORAL 05/11/16 09:00 06/10/16 08:59 05/17/16 08:48 Lidocaine (Xylocaine) 1 applic EVERY 4 HOURS PRN TOPIC pain 05/16/16 16:45 06/15/16 16:44 05/17/16 08:48 Lisinopril (Zestril) 10 mg DAILY ORAL 05/12/16 19:30 06/11/16 19:29 05/17/16 08:48 Morphine Sulfate (Morphine Sulfate) 4 mg Q4H PRN IVP Severe Pain (Pain Scale 7-10) 05/11/16 06:30 05/18/16 06:29 05/17/16 09:57 Ondansetron HCl (Zofran) 4 mg Q4H PRN IVP Nausea & Vomiting 05/11/16 06:30 06/10/16 06:29 Pantoprazole (Protonix) 40 mg ACBREAKFAST ORAL 05/12/16 06:30 06/11/16 06:29 05/17/16 06:17 Spironolactone (Aldactone) 25 mg EVERY 12 HOURS ORAL 05/11/16 10:00 06/10/16 09:59 05/17/16 08:48 Tramadol HCl (Ultram) 50 mg Q4H PRN ORAL PAIN SCALE 4-6 05/11/16 12:15 05/18/16 12:14 05/16/16 04:03 Allergies: Coded Allergies: No Known Allergies (Unverified , 04/03/16) ROS Limited/Unobtainable: No Constitutional: Reports: no symptoms HEENT: Reports: no symptoms Cardiovascular: Reports: no symptoms Respiratory: Reports: no symptoms Gastrointestinal/Abdominal: Reports: no symptoms Genitourinary: Reports: no symptoms Neurologic/Psychiatric: Reports: no symptoms Subjective 65 YO M admitted for hematuria. Cover For Int Med-Dr Francois. S/P TURP . S/P Cystoscopy, clot evacuation and completion of TURP 05/15/16. Urine clear today; Marcelino D/C Objective Last Vital Signs Date Time Temp Pulse Resp B/P Pulse Ox O2 Delivery O2 Flow Rate FiO2 05/17/16 16:46 98.1 71 15 140/72 99 Room Air 05/16/16 04:00 3.0 Laboratory Tests Test 05/16/16 20:10 05/17/16 08:05 Stool Occult Blood Negative (NEGATIVE) White Blood Count 9.6 K/UL (4.8-10.8) Red Blood Count 3.33 M/UL (4.70-6.10) L Hemoglobin 9.6 G/DL (14.2-18.0) L Hematocrit 30.1 % (42.0-52.0) L Mean Corpuscular Volume 90 FL (80-99) Mean Corpuscular Hemoglobin 28.9 PG (27.0-31.0) Mean Corpuscular Hemoglobin Concent 32.0 G/DL (32.0-36.0) Red Cell Distribution Width 13.9 % (11.6-14.8) Platelet Count 217 K/UL (150-450) Mean Platelet Volume 8.5 FL (6.5-10.1) Neutrophils (%) (Auto) 64.5 % (45.0-75.0) Lymphocytes (%) (Auto) 19.7 % (20.0-45.0) L Monocytes (%) (Auto) 11.0 % (1.0-10.0) H Eosinophils (%) (Auto) 4.1 % (0.0-3.0) H Basophils (%) (Auto) 0.7 % (0.0-2.0) Prothrombin Time 10.6 SEC (9.30-11.50) Prothromb Time International Ratio 1.0 (0.9-1.1) Activated Partial Thromboplast Time 34 SEC (23-33) H Sodium Level 139 mEQ/L (135-145) Potassium Level 4.1 mEQ/L (3.4-4.9) Chloride Level 101 mEQ/L (98-107) Carbon Dioxide Level 24 mEQ/L (20-30) Anion Gap 14 (5-15) Blood Urea Nitrogen 12 mg/dL (7-23) Creatinine 1.2 mg/dL (0.7-1.2) Estimat Glomerular Filtration Rate > 60 mL/min (>60) Glucose Level 109 mg/dL (74-106) H Calcium Level 8.9 mg/dL (8.6-10.2) Bad tableObjective General Appearance: WD/WN, no apparent distress, alert EENT: PERRL/EOMI, normal ENT inspection, TMs normal Neck: non-tender, normal alignment, supple Cardiovascular: normal peripheral pulses, normal rate, regular rhythm, no gallop/murmur, no JVD Respiratory/Chest: chest wall non-tender, lungs clear, normal breath sounds, no respiratory distress, no accessory muscle use Abdomen: normal bowel sounds, non tender, soft, no organomegaly, no mass Extremities: normal range of motion 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 (2) Gross hematuria Assessment & Plan: Resolving. S/P TURP below. Follow urology recs. (3) BPH (benign prostatic hyperplasia) Assessment & Plan: S/P TURP 1/10/17. S/P cystoscopy, clot evacuation and completion TURP 05/15/16. D/C marcelino-See urology note. (4) Anemia, blood loss Assessment & Plan: Stable hemoglobin. S/P transfusion 5 units total PRBC this admission (5) Cardiomyopathy (6) HTN (hypertension) Assessment & Plan: Cont coreg Status: progressing Assessment/Plan Discharge planning: FRIDA Montoya May 17, 2016 18:17
--- NOTE | 2016-05-17 19:04 | Pulmonology Progress Note ---
Assessment/Plan Problems: (1) Hemorrhagic shock (2) Cardiomyopathy (3) S/P TURP (4) Gross hematuria (5) Pacemaker Assessment/Plan h/h stable f/u labs daily anemia work up titrate cardiac meds Subjective ROS Limited/Unobtainable: Yes Constitutional: Reports: anorexia, fatigue Musculoskeletal: Reports: pain, stiffness Allergies: Coded Allergies: No Known Allergies (Unverified , 04/03/16) Objective Last 24 Hour Vital Signs Date Time Temp Pulse Resp B/P Pulse Ox O2 Delivery O2 Flow Rate FiO2 05/17/16 16:46 98.1 71 15 140/72 99 Room Air 05/17/16 12:00 98.1 68 14 125/62 99 Room Air 05/17/16 10:27 98.1 05/17/16 08:48 137/63 05/17/16 08:47 63 137/63 05/17/16 08:05 98.1 63 14 137/63 99 Room Air 05/17/16 04:00 98.6 75 16 119/64 96 Room Air 05/17/16 00:00 99.0 66 18 105/67 95 Room Air 05/16/16 22:02 74 148/71 Bad tableGeneral Appearance: no acute distress HEENT: normocephalic, atraumatic, PERRL Respiratory/Chest: chest wall non-tender, decreased breath sounds, accessory muscle use, crackles/rales Cardiovascular: normal peripheral pulses, normal rate, regular rhythm, no JVD Abdomen: normal bowel sounds, soft, non tender, no organomegaly Genitourinary: normal external genitalia Extremities: no cyanosis Skin: no rash, no lesions 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, no motor/sensory deficits Laboratory Tests 05/16/16 20:10: Stool Occult Blood Negative 05/17/16 08:05: White Blood Count 9.6, Red Blood Count 3.33L, Hemoglobin 9.6L, Hematocrit 30.1L , Mean Corpuscular Volume 90, Mean Corpuscular Hemoglobin 28.9, Mean Corpuscular Hemoglobin Concent 32.0, Red Cell Distribution Width 13.9, Platelet Count 217, Mean Platelet Volume 8.5, Neutrophils (%) (Auto) 64.5, Lymphocytes (% ) (Auto) 19.7L, Monocytes (%) (Auto) 11.0H, Eosinophils (%) (Auto) 4.1H, Basophils (%) (Auto) 0.7, Prothrombin Time 10.6, Prothromb Time International Ratio 1.0, Activated Partial Thromboplast Time 34H, Sodium Level 139, Potassium Level 4.1, Chloride Level 101, Carbon Dioxide Level 24, Anion Gap 14, Blood Urea Nitrogen 12, Creatinine 1.2, Estimat Glomerular Filtration Rate > 60, Glucose Level 109H, Calcium Level 8.9 Current Medications Medications (Trade) Dose Ordered Sig/Gurpreet Route PRN Reason Start Time Stop Time Status Last Admin Dose Admin Acetaminophen (Tylenol) 500 mg Q6H PRN ORAL Mild Pain/Temp > 100.5 05/11/16 08:15 06/10/16 08:14 Atorvastatin Calcium (Lipitor) 80 mg QHS ORAL 05/11/16 21:00 06/10/16 20:59 05/16/16 22:10 Belladonna Alkaloids/Opium (B & O (15-A)) 60 mg TWICE A DAY PRN RECTAL spasm 05/15/16 19:45 05/22/16 19:44 05/17/16 17:58 Carvedilol (Coreg) 3.125 mg EVERY 12 HOURS ORAL 05/11/16 21:00 06/10/16 20:59 05/17/16 08:47 Cetylpyridinium Chloride (Cepacol) 1 lozenge EVERY 2 HOURS PRN DORETHA sore throat 05/17/16 14:00 06/16/16 13:59 05/17/16 18:03 Diazepam (Valium) 2 mg Q1H PRN IV spasm 05/17/16 01:37 05/24/16 01:36 05/17/16 14:00 Ferrous Sulfate (Feosol) 325 mg BID ORAL 05/11/16 10:00 06/10/16 09:59 05/17/16 17:58 Finasteride (Proscar) 5 mg DAILY ORAL 05/11/16 09:00 06/10/16 08:59 05/17/16 08:48 Lidocaine (Xylocaine) 1 applic EVERY 4 HOURS PRN TOPIC pain 05/16/16 16:45 06/15/16 16:44 05/17/16 08:48 Lisinopril (Zestril) 10 mg DAILY ORAL 05/12/16 19:30 06/11/16 19:29 05/17/16 08:48 Morphine Sulfate (Morphine Sulfate) 4 mg Q4H PRN IVP Severe Pain (Pain Scale 7-10) 05/11/16 06:30 05/18/16 06:29 05/17/16 09:57 Ondansetron HCl (Zofran) 4 mg Q4H PRN IVP Nausea & Vomiting 05/11/16 06:30 06/10/16 06:29 Pantoprazole (Protonix) 40 mg ACBREAKFAST ORAL 05/12/16 06:30 06/11/16 06:29 05/17/16 06:17 Spironolactone (Aldactone) 25 mg EVERY 12 HOURS ORAL 05/11/16 10:00 06/10/16 09:59 05/17/16 08:48 Tramadol HCl (Ultram) 50 mg Q4H PRN ORAL PAIN SCALE 4-6 05/11/16 12:15 05/18/16 12:14 05/16/16 04:03 ARMEN PRAKASH May 17, 2016 19:04
[2016-05-17 20:00] VITALS: BP 140/66
[2016-05-17] MEDS: Atorvastatin 80mg tab ORAL SCH (21:35)
[2016-05-18] VITALS: BP 144/80
[2016-05-18 04:00] VITALS: BP 138/64
[2016-05-18 07:36] LABS: BASOPHILS % (AUTO) 0.4 % (0.0-2.0); EOSINOPHILS % (AUTO) 4.3 % (0.0-3.0); LYMPHOCYTES % (AUTO) 19.1 % (20.0-45.0); MEAN CORPUSCULAR HEMOGLOBIN 28.5 PG (27.0-31.0); MEAN CORPUSCULAR VOLUME 89 FL (80-99); MEAN PLATELET VOLUME 8.8 FL (6.5-10.1); NEUTROPHILS % (AUTO) 64.2 % (45.0-75.0); PLATELET COUNT 218 K/UL (150-450); RED BLOOD COUNT 2.93 M/UL (4.70-6.10); RED CELL DISTRIBUTION WIDTH 13.3 % (11.6-14.8); WHITE BLOOD COUNT 9.7 K/UL (4.8-10.8)
[2016-05-18 08:02] LABS: ANION GAP 14 (5-15); CALCIUM 8.6 mg/dL (8.6-10.2); CARBON DIOXIDE 23 mEQ/L (20-30); CHLORIDE 101 mEQ/L (98-107); CREATININE 1.2 mg/dL (0.7-1.2); GLOMERULAR FILTRATION RATE > 60 mL/min (>60); HEMOLYSIS 0; POTASSIUM 4.4 mEQ/L (3.4-4.9); SODIUM 138 mEQ/L (135-145)
[2016-05-18] MEDS: Diazepam 10mg/2ml Inj IV PRN (08:49)
[2016-05-18] MEDS: Lisinopril 10mg tab ORAL SCH (08:50)
[2016-05-18] MEDS: Lidocaine 4% Cream 15g TOPIC PRN (08:50)
[2016-05-18] MEDS: Spironolactone 25mg tab ORAL SCH ×2 (08:50→21:30)
[2016-05-18 08:53] VITALS: BP 112/59
--- NOTE | 2016-05-18 12:09 | Cardiac Electrophysiology PN ---
Assessment/Plan Status Narrative Technically difficult and limited study due to patient pain. Left ventricular ejection fraction estimated to be 40-45%. No left ventricular hypertrophy. Global left ventricular hypokinesis.worse in inferior and infero lateral wall Moderate left ventricular enlargment. Probable pacemaker wire present in the right side chambers. Mild left atrial enlargment. Pulmonic valve not well visualized. Normal tricuspid valve structure. IVC at 1.8cm with physiologic collapse. Mitral and aortic vavle thickening Assessment/Plan 1.Severe nonischemic dilated cardiomyopathy.EF 40-45%. Continue Coreg 3.125 mg b.i.d., Lisinopril 10 and Aldactone 25 mg daily. 2. Status post biventricular St. Navid defibrillator implantation. 3. Hematuria, status post transurethral resection of prostate. Tolerated the surgery well without any complications. 4. Profound anemia Hb 6.8 due to hematuria. No further hematuria after Cystoscopy, clot evacuation, completion transurethral resection of prostate. ALAN RN Subjective Subjective No chest pain or SOB. No further hematuria , Jordan is out. Objective Last 24 Hour Vital Signs Date Time Temp Pulse Resp B/P Pulse Ox O2 Delivery O2 Flow Rate FiO2 05/18/16 08:53 98.4 69 18 112/59 98 Room Air 05/18/16 08:50 121/57 05/18/16 08:50 63 121/57 05/18/16 04:00 97.7 64 18 138/64 97 Room Air 05/18/16 00:00 99.0 86 20 144/80 96 Room Air 05/17/16 21:35 84 140/66 05/17/16 20:00 98.8 84 20 140/66 99 Room Air 05/17/16 16:46 98.1 71 15 140/72 99 Room Air Bad table Laboratory Tests Test 05/18/16 06:00 White Blood Count 9.7 K/UL (4.8-10.8) Red Blood Count 2.93 M/UL (4.70-6.10) L Hemoglobin 8.4 G/DL (14.2-18.0) L Hematocrit 26.1 % (42.0-52.0) L Mean Corpuscular Volume 89 FL (80-99) Mean Corpuscular Hemoglobin 28.5 PG (27.0-31.0) Mean Corpuscular Hemoglobin Concent 32.0 G/DL (32.0-36.0) Red Cell Distribution Width 13.3 % (11.6-14.8) Platelet Count 218 K/UL (150-450) Mean Platelet Volume 8.8 FL (6.5-10.1) Neutrophils (%) (Auto) 64.2 % (45.0-75.0) Lymphocytes (%) (Auto) 19.1 % (20.0-45.0) L Monocytes (%) (Auto) 12.0 % (1.0-10.0) H Eosinophils (%) (Auto) 4.3 % (0.0-3.0) H Basophils (%) (Auto) 0.4 % (0.0-2.0) Sodium Level 138 mEQ/L (135-145) Potassium Level 4.4 mEQ/L (3.4-4.9) Chloride Level 101 mEQ/L (98-107) Carbon Dioxide Level 23 mEQ/L (20-30) Anion Gap 14 (5-15) Blood Urea Nitrogen 14 mg/dL (7-23) Creatinine 1.2 mg/dL (0.7-1.2) Estimat Glomerular Filtration Rate > 60 mL/min (>60) Glucose Level 105 mg/dL (74-106) Calcium Level 8.6 mg/dL (8.6-10.2) Objective NECK: No JVD. LUNGS: Clear. CARDIOVASCULAR: Shows regular S1 and S2 with no gallop or murmur.Defibrillator is in left subclavian. ABDOMEN: Soft. EXTREMITIES: No pitting edema. LANI OCONNELL May 18, 2016 12:09
[2016-05-18 12:38] VITALS: BP 125/60
--- NOTE | 2016-05-18 15:06 | Pulmonology Progress Note ---
Assessment/Plan Problems: (1) Hemorrhagic shock (2) Cardiomyopathy (3) S/P TURP (4) Gross hematuria (5) Pacemaker Assessment/Plan h/h stable f/u labs daily anemia work up titrate cardiac meds Subjective ROS Limited/Unobtainable: No Constitutional: Reports: anorexia, fatigue Genitourinary: Reports: dysuria, frequency, hematuria, nocturia, urgency Hematologic: Reports: bleeding Allergies: Coded Allergies: No Known Allergies (Unverified , 04/03/16) Objective Last 24 Hour Vital Signs Date Time Temp Pulse Resp B/P Pulse Ox O2 Delivery O2 Flow Rate FiO2 05/18/16 12:38 98.1 63 18 125/60 99 Room Air 05/18/16 08:53 98.4 69 18 112/59 98 Room Air 05/18/16 08:50 121/57 05/18/16 08:50 63 121/57 05/18/16 04:00 97.7 64 18 138/64 97 Room Air 05/18/16 00:00 99.0 86 20 144/80 96 Room Air 05/17/16 21:35 84 140/66 05/17/16 20:00 98.8 84 20 140/66 99 Room Air 05/17/16 16:46 98.1 71 15 140/72 99 Room Air Bad tableGeneral Appearance: no acute distress HEENT: normocephalic, atraumatic, PERRL Respiratory/Chest: chest wall non-tender, lungs clear, normal breath sounds Cardiovascular: normal peripheral pulses, normal rate, regular rhythm Abdomen: normal bowel sounds, soft, non tender, no organomegaly, non distended Extremities: no cyanosis Skin: no rash, no lesions Neurologic/Psychiatric: collator hand II-XII grossly normal, no motor/sensory deficits Laboratory Tests 05/18/16 06:00: White Blood Count 9.7, Red Blood Count 2.93L, Hemoglobin 8.4L, Hematocrit 26.1L , Mean Corpuscular Volume 89, Mean Corpuscular Hemoglobin 28.5, Mean Corpuscular Hemoglobin Concent 32.0, Red Cell Distribution Width 13.3, Platelet Count 218, Mean Platelet Volume 8.8, Neutrophils (%) (Auto) 64.2, Lymphocytes (% ) (Auto) 19.1L, Monocytes (%) (Auto) 12.0H, Eosinophils (%) (Auto) 4.3H, Basophils (%) (Auto) 0.4, Sodium Level 138, Potassium Level 4.4, Chloride Level 101, Carbon Dioxide Level 23, Anion Gap 14, Blood Urea Nitrogen 14, Creatinine 1.2, Estimat Glomerular Filtration Rate > 60, Glucose Level 105, Calcium Level 8.6 Current Medications Medications (Trade) Dose Ordered Sig/Gurpreet Route PRN Reason Start Time Stop Time Status Last Admin Dose Admin Acetaminophen (Tylenol) 500 mg Q6H PRN ORAL Mild Pain/Temp > 100.5 05/11/16 08:15 06/10/16 08:14 Atorvastatin Calcium (Lipitor) 80 mg QHS ORAL 05/11/16 21:00 06/10/16 20:59 05/17/16 21:35 Belladonna Alkaloids/Opium (B & O (15-A)) 60 mg TWICE A DAY PRN RECTAL spasm 05/15/16 19:45 05/22/16 19:44 05/17/16 17:58 Carvedilol (Coreg) 3.125 mg EVERY 12 HOURS ORAL 05/11/16 21:00 06/10/16 20:59 05/18/16 08:50 Cetylpyridinium Chloride (Cepacol) 1 lozenge EVERY 2 HOURS PRN DORETHA sore throat 05/17/16 14:00 06/16/16 13:59 05/17/16 18:03 Diazepam (Valium) 2 mg Q1H PRN IV spasm 05/17/16 01:37 05/24/16 01:36 05/18/16 08:49 Ferrous Sulfate (Feosol) 325 mg BID ORAL 05/11/16 10:00 06/10/16 09:59 05/18/16 08:50 Finasteride (Proscar) 5 mg DAILY ORAL 05/11/16 09:00 06/10/16 08:59 05/18/16 08:50 Lidocaine (Xylocaine) 1 applic EVERY 4 HOURS PRN TOPIC pain 05/16/16 16:45 06/15/16 16:44 05/18/16 08:50 Lisinopril (Zestril) 10 mg DAILY ORAL 05/12/16 19:30 06/11/16 19:29 05/18/16 08:50 Ondansetron HCl (Zofran) 4 mg Q4H PRN IVP Nausea & Vomiting 05/11/16 06:30 06/10/16 06:29 Pantoprazole (Protonix) 40 mg ACBREAKFAST ORAL 05/12/16 06:30 06/11/16 06:29 05/18/16 06:46 Spironolactone (Aldactone) 25 mg EVERY 12 HOURS ORAL 05/11/16 10:00 06/10/16 09:59 05/18/16 08:50 ARMEN PRAKASH May 18, 2016 15:06
[2016-05-18 16:00] VITALS: BP 134/80
[2016-05-18 19:00] VITALS: BP 144/77
--- NOTE | 2016-05-18 19:59 | Internal Med Progress Note ---
Subjective Date of Service: May 18, 2016 Physician Name Frida Jones Attending Physician Blair Francois MD Current Medications Medications (Trade) Dose Ordered Sig/Gurpreet Route PRN Reason Start Time Stop Time Status Last Admin Dose Admin Acetaminophen (Tylenol) 500 mg Q6H PRN ORAL Mild Pain/Temp > 100.5 05/11/16 08:15 06/10/16 08:14 Atorvastatin Calcium (Lipitor) 80 mg QHS ORAL 05/11/16 21:00 06/10/16 20:59 05/17/16 21:35 Belladonna Alkaloids/Opium (B & O (15-A)) 60 mg TWICE A DAY PRN RECTAL spasm 05/15/16 19:45 05/22/16 19:44 05/17/16 17:58 Carvedilol (Coreg) 3.125 mg EVERY 12 HOURS ORAL 05/11/16 21:00 06/10/16 20:59 05/18/16 08:50 Cetylpyridinium Chloride (Cepacol) 1 lozenge EVERY 2 HOURS PRN DORETHA sore throat 05/17/16 14:00 06/16/16 13:59 05/17/16 18:03 Diazepam (Valium) 2 mg Q1H PRN IV spasm 05/17/16 01:37 05/24/16 01:36 05/18/16 08:49 Ferrous Sulfate (Feosol) 325 mg BID ORAL 05/11/16 10:00 06/10/16 09:59 05/18/16 08:50 Finasteride (Proscar) 5 mg DAILY ORAL 05/11/16 09:00 06/10/16 08:59 05/18/16 08:50 Lidocaine (Xylocaine) 1 applic EVERY 4 HOURS PRN TOPIC pain 05/16/16 16:45 06/15/16 16:44 05/18/16 08:50 Lisinopril (Zestril) 10 mg DAILY ORAL 05/12/16 19:30 06/11/16 19:29 05/18/16 08:50 Ondansetron HCl (Zofran) 4 mg Q4H PRN IVP Nausea & Vomiting 05/11/16 06:30 06/10/16 06:29 Pantoprazole (Protonix) 40 mg ACBREAKFAST ORAL 05/12/16 06:30 06/11/16 06:29 05/18/16 06:46 Spironolactone (Aldactone) 25 mg EVERY 12 HOURS ORAL 05/11/16 10:00 06/10/16 09:59 05/18/16 08:50 Allergies: Coded Allergies: No Known Allergies (Unverified , 04/03/16) ROS Limited/Unobtainable: No Constitutional: Reports: no symptoms HEENT: Reports: no symptoms Cardiovascular: Reports: no symptoms Respiratory: Reports: no symptoms Gastrointestinal/Abdominal: Reports: no symptoms Neurologic/Psychiatric: Reports: no symptoms Subjective 65 YO M admitted for hematuria. Cover For Int Med-Dr Francois. S/P TURP . S/P Cystoscopy, clot evacuation and completion of TURP 05/15/16. Urine clear today; Marcelino D/C Objective Last Vital Signs Date Time Temp Pulse Resp B/P Pulse Ox O2 Delivery O2 Flow Rate FiO2 05/18/16 16:00 97.5 71 20 134/80 98 Room Air 05/16/16 04:00 3.0 Laboratory Tests Test 05/18/16 06:00 White Blood Count 9.7 K/UL (4.8-10.8) Red Blood Count 2.93 M/UL (4.70-6.10) L Hemoglobin 8.4 G/DL (14.2-18.0) L Hematocrit 26.1 % (42.0-52.0) L Mean Corpuscular Volume 89 FL (80-99) Mean Corpuscular Hemoglobin 28.5 PG (27.0-31.0) Mean Corpuscular Hemoglobin Concent 32.0 G/DL (32.0-36.0) Red Cell Distribution Width 13.3 % (11.6-14.8) Platelet Count 218 K/UL (150-450) Mean Platelet Volume 8.8 FL (6.5-10.1) Neutrophils (%) (Auto) 64.2 % (45.0-75.0) Lymphocytes (%) (Auto) 19.1 % (20.0-45.0) L Monocytes (%) (Auto) 12.0 % (1.0-10.0) H Eosinophils (%) (Auto) 4.3 % (0.0-3.0) H Basophils (%) (Auto) 0.4 % (0.0-2.0) Sodium Level 138 mEQ/L (135-145) Potassium Level 4.4 mEQ/L (3.4-4.9) Chloride Level 101 mEQ/L (98-107) Carbon Dioxide Level 23 mEQ/L (20-30) Anion Gap 14 (5-15) Blood Urea Nitrogen 14 mg/dL (7-23) Creatinine 1.2 mg/dL (0.7-1.2) Estimat Glomerular Filtration Rate > 60 mL/min (>60) Glucose Level 105 mg/dL (74-106) Calcium Level 8.6 mg/dL (8.6-10.2) Bad tableObjective General Appearance: WD/WN, no apparent distress, alert EENT: PERRL/EOMI, normal ENT inspection, TMs normal Neck: non-tender, normal alignment, supple Cardiovascular: normal peripheral pulses, normal rate, regular rhythm, no gallop/murmur, no JVD Respiratory/Chest: chest wall non-tender, lungs clear, normal breath sounds, no respiratory distress, no accessory muscle use Abdomen: normal bowel sounds, non tender, soft, no organomegaly, no mass Extremities: normal range of motion Neurologic: fur dyer II-XII 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 (2) Gross hematuria Assessment & Plan: Resolving. S/P TURP below. Follow urology recs. (3) BPH (benign prostatic hyperplasia) Assessment & Plan: S/P TURP 05/12/16. S/P cystoscopy, clot evacuation and completion TURP 05/15/16. D/C marcelino-See urology note. (4) Anemia, blood loss Assessment & Plan: Stable hemoglobin. S/P transfusion 5 units total PRBC this admission (5) Cardiomyopathy (6) HTN (hypertension) Assessment & Plan: Cont coreg Assessment/Plan Discharge planning: FRIDA Montoya May 18, 2016 19:59
[2016-05-18] MEDS: [UNRECOGNIZED DRUG - OTHER] RECTAL PRN (21:30)
[2016-05-18] MEDS: Atorvastatin 80mg tab ORAL SCH (21:30)
[2016-05-19] VITALS: BP 142/68
[2016-05-19 04:00] VITALS: BP 156/78
[2016-05-19 07:38] LABS: BASOPHILS % (AUTO) 0.5 % (0.0-2.0); EOSINOPHILS % (AUTO) 4.7 % (0.0-3.0); LYMPHOCYTES % (AUTO) 20.8 % (20.0-45.0); MEAN CORPUSCULAR HEMOGLOBIN 29.2 PG (27.0-31.0); MEAN CORPUSCULAR HGB CONC 33.4 G/DL (32.0-36.0); MEAN CORPUSCULAR VOLUME 87 FL (80-99); MEAN PLATELET VOLUME 7.9 FL (6.5-10.1); MONOCYTES % (AUTO) 12.1 % (1.0-10.0); NEUTROPHILS % (AUTO) 61.9 % (45.0-75.0); PLATELET COUNT 229 K/UL (150-450); RED BLOOD COUNT 3.02 M/UL (4.70-6.10); WHITE BLOOD COUNT 8.4 K/UL (4.8-10.8)
[2016-05-19 07:53] LABS: ANION GAP 15 (5-15); CALCIUM 8.6 mg/dL (8.6-10.2); CARBON DIOXIDE 23 mEQ/L (20-30); CHLORIDE 101 mEQ/L (98-107); CREATININE 1.2 mg/dL (0.7-1.2); GLOMERULAR FILTRATION RATE > 60 mL/min (>60); HEMOLYSIS 1; SODIUM 139 mEQ/L (135-145)
[2016-05-19 08:00] VITALS: BP 131/75
[2016-05-19] MEDS: Spironolactone 25mg tab ORAL SCH (09:52)
[2016-05-19] MEDS: Lisinopril 10mg tab ORAL SCH (09:52)
[2016-05-19 12:00] VITALS: BP 140/79
--- NOTE | 2016-05-19 15:14 | Discharge Summary ---
Discharge Summary Hospital Course Date of Admission May 10, 2016 at 19:20 Date of Discharge Admitting Diagnosis gross hematuria, anemia HPI Homero Robins is a 65 year old male who was admitted on May 10, 2016 at 19: 20 for Re-Eval Hospital Course The patient was seen and examined at bedside and all new and available data was reviewed in the patients chart. Last 24 Hour Vital Signs Date Time Temp Pulse Resp B/P Pulse Ox O2 Delivery O2 Flow Rate FiO2 05/19/16 12:00 98.1 69 22 140/79 100 Room Air 05/19/16 09:53 65 131/75 05/19/16 09:52 131/75 05/19/16 08:00 97.9 65 21 131/75 99 Room Air 05/19/16 04:00 97.5 71 18 156/78 97 Room Air 05/19/16 00:00 98.1 68 18 142/68 96 Room Air 05/18/16 21:30 73 144/77 05/18/16 19:00 97.5 73 20 144/77 05/18/16 16:00 97.5 71 20 134/80 98 Room Air General Appearance: WD/WN, no apparent distress, alert EENT: PERRL/EOMI, normal ENT inspection, TMs normal Neck: non-tender, normal alignment, supple Cardiovascular: normal peripheral pulses, normal rate, regular rhythm, no gallop Respiratory/Chest: chest wall non-tender, lungs clear, normal breath sounds, no respiratory distress Abdomen: normal bowel sounds, non tender, soft, Extremities: normal range of motion Neurologic: sports physiologist II-XII grossly normal, no motor/sensory deficits Skin: normal pigmentation, warm/dry Plan: DC to SNF today (Patient was seen earlier today. Signature timestamp does not reflect patient encounter time) Blair Francois MD Discharge Discharge Disposition Patient was discharged to Discharge Diagnoses: Blair Francois MD May 19, 2016 15:14
--- NOTE | 2016-05-19 15:34 | Pulmonology Progress Note ---
Assessment/Plan Problems: (1) Hemorrhagic shock (2) Cardiomyopathy (3) S/P TURP (4) Gross hematuria (5) Pacemaker Assessment/Plan h/h stable f/u labs daily anemia work up titrate cardiac meds marcelino removed dc planning symptomatic treatment of constipation PT/ot Subjective ROS Limited/Unobtainable: No Interval Events: c/o episodes of constipation and diarrhia, marcelino removed Constitutional: Reports: no symptoms HEENT: Repors: no symptoms Respiratory: Reports: no symptoms Allergies: Coded Allergies: No Known Allergies (Unverified , 04/03/16) Objective Last 24 Hour Vital Signs Date Time Temp Pulse Resp B/P Pulse Ox O2 Delivery O2 Flow Rate FiO2 05/19/16 12:00 98.1 69 22 140/79 100 Room Air 05/19/16 09:53 65 131/75 05/19/16 09:52 131/75 05/19/16 08:00 97.9 65 21 131/75 99 Room Air 05/19/16 04:00 97.5 71 18 156/78 97 Room Air 05/19/16 00:00 98.1 68 18 142/68 96 Room Air 05/18/16 21:30 73 144/77 05/18/16 19:00 97.5 73 20 144/77 05/18/16 16:00 97.5 71 20 134/80 98 Room Air Intake and Output 05/18/16 05/19/16 19:00 07:00 Intake Total 720 ml 480 ml Output Total 575 ml Balance 145 ml 480 ml Intake Oral 720 ml 480 ml Output Urine Total 575 ml # Voids 6 General Appearance: WD/WN HEENT: normocephalic Respiratory/Chest: chest wall non-tender, lungs clear Cardiovascular: normal peripheral pulses Abdomen: normal bowel sounds, soft, non tender Extremities: no cyanosis Skin: no rash Neurologic/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: 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 grossly normal Laboratory Tests 05/19/16 06:15: White Blood Count 8.4, Red Blood Count 3.02L, Hemoglobin 8.8L, Hematocrit 26.4L , Mean Corpuscular Volume 87, Mean Corpuscular Hemoglobin 29.2, Mean Corpuscular Hemoglobin Concent 33.4, Red Cell Distribution Width 13.0, Platelet Count 229, Mean Platelet Volume 7.9, Neutrophils (%) (Auto) 61.9, Lymphocytes (% ) (Auto) 20.8, Monocytes (%) (Auto) 12.1H, Eosinophils (%) (Auto) 4.7H, Basophils (%) (Auto) 0.5, Sodium Level 139, Potassium Level 4.0, Chloride Level 101, Carbon Dioxide Level 23, Anion Gap 15, Blood Urea Nitrogen 13, Creatinine 1.2, Estimat Glomerular Filtration Rate > 60, Glucose Level 92, Calcium Level 8.6 Current Medications Medications (Trade) Dose Ordered Sig/Gurpreet Route PRN Reason Start Time Stop Time Status Last Admin Dose Admin Acetaminophen (Tylenol) 500 mg Q6H PRN ORAL Mild Pain/Temp > 100.5 05/11/16 08:15 06/10/16 08:14 Atorvastatin Calcium (Lipitor) 80 mg QHS ORAL 05/11/16 21:00 06/10/16 20:59 05/18/16 21:30 Belladonna Alkaloids/Opium (B & O (15-A)) 60 mg TWICE A DAY PRN RECTAL spasm 05/15/16 19:45 05/22/16 19:44 05/18/16 21:30 Carvedilol (Coreg) 3.125 mg EVERY 12 HOURS ORAL 05/11/16 21:00 06/10/16 20:59 05/19/16 09:53 Cetylpyridinium Chloride (Cepacol) 1 lozenge EVERY 2 HOURS PRN DORETHA sore throat 05/17/16 14:00 06/16/16 13:59 05/17/16 18:03 Diazepam (Valium) 2 mg Q1H PRN IV spasm 05/17/16 01:37 05/24/16 01:36 05/18/16 08:49 Ferrous Sulfate (Feosol) 325 mg BID ORAL 05/11/16 10:00 06/10/16 09:59 05/19/16 09:52 Finasteride (Proscar) 5 mg DAILY ORAL 05/11/16 09:00 06/10/16 08:59 05/19/16 09:52 Lidocaine (Xylocaine) 1 applic EVERY 4 HOURS PRN TOPIC pain 05/16/16 16:45 06/15/16 16:44 05/18/16 08:50 Lisinopril (Zestril) 10 mg DAILY ORAL 05/12/16 19:30 06/11/16 19:29 05/19/16 09:52 Ondansetron HCl (Zofran) 4 mg Q4H PRN IVP Nausea & Vomiting 05/11/16 06:30 06/10/16 06:29 Pantoprazole (Protonix) 40 mg ACBREAKFAST ORAL 05/12/16 06:30 06/11/16 06:29 05/19/16 06:51 Spironolactone (Aldactone) 25 mg EVERY 12 HOURS ORAL 05/11/16 10:00 06/10/16 09:59 05/19/16 09:52 ARMEN PRAKASH May 19, 2016 15:34
[2016-05-19] MEDS ORDERED: NS Irrig 4000ml IRRIG ONE (15:44)
== END 2016-05-19 15:45 | DRG 713 ==
LOC: EMR 18:10 → 4E 19:20 → EDBEDREQ 05-11 01:20 → EMR 05-11 01:49
PROC: 0TCB8ZZ Extirpation of Matter from Bladder, Via Natural or Artificial Opening Endoscopic (ICD-10-PCS; principal; 2016-05-11)
PROC: 0VB08ZZ Excision of Prostate, Via Natural or Artificial Opening Endoscopic (ICD-10-PCS; principal; 2016-05-11)
PROC: 30233N1 Transfusion of Nonautologous Red Blood Cells into Peripheral Vein, Percutaneous Approach (ICD-10-PCS; 2016-05-14)
PROC: 0TCB8ZZ Extirpation of Matter from Bladder, Via Natural or Artificial Opening Endoscopic (ICD-10-PCS; 2016-05-15)
PROC: 0V907ZZ Drainage of Prostate, Via Natural or Artificial Opening (ICD-10-PCS; 2016-05-15)
PROC: 0VT08ZZ Resection of Prostate, Via Natural or Artificial Opening Endoscopic (ICD-10-PCS; 2016-05-15)
DX: N40.1 Benign prostatic hyperplasia with lower urinary tract symptoms (principal); I42.0 Dilated cardiomyopathy; I50.9 Heart failure, unspecified; D62 Acute posthemorrhagic anemia; Z95.0 Presence of cardiac pacemaker; E78.00 Pure hypercholesterolemia, unspecified; I10 Essential (primary) hypertension; Z79.02 Long term (current) use of antithrombotics/antiplatelets; N32.89 Other specified disorders of bladder; R33.8 Other retention of urine; R31.0 Gross hematuria; Z79.82 Long term (current) use of aspirin; Z87.891 Personal history of nicotine dependence
CPT/HCPCS: 36415; 71010; 76775; 80048; 80053; 81003; 82270; 82378; 82607; 82746; 83540; 83550; 83615; 83690; 83735; 83880; 84100; 85007; 85025; 85044; 85060; 85610; 85651; 85730; 86850; 86900; 86901; 86920; 87081; 93005; 93306; 94003; 94150; 96361; 96374; J2250; J2405